=== PATIENT | female | born 1955 | race Caucasian/White ===

== ENCOUNTER 2020-09-28 10:35 | Outpatient (REF) | payer MEDICARE, SELFPAY ==
[2020-09-28 14:17] LABS: Anion Gap 13 (12-20); Blood Urea Nitrogen 12 mg/dL (9-16); Calcium 8.6 mg/dL (8.4-10.2); Carbon Dioxide 28 mmol/L (22-29); Chloride 104 mmol/L (96-108); Estimated Glomerular Filt Rate > 60; Glucose Random 82 mg/dL (60-115); Magnesium 2.2 mg/dL (1.6-2.6); Potassium 4.4 mmol/l (3.3-5.1); Sodium 141 mmol/L (135-145)
[2020-09-28 14:40] LABS: TSH reflex Free T4 1.31 mIU/mL (0.32-4.0)
== END 2020-09-28 10:36 | disposition home or self-care (01) ==
LOC: HO.HMGCLDS 10:35
PROVIDERS: PCP Internal Medicine; Visit Provider Internal Medicine
DX: R25.2 Cramp and spasm (principal); R32 Unspecified urinary incontinence; M19.90 Unspecified osteoarthritis, unspecified site; R10.13 Epigastric pain; E03.8 Other specified hypothyroidism; M47.812 Spondylosis without myelopathy or radiculopathy, cervical region
CPT/HCPCS: 80048; 83735; 84443

== ENCOUNTER → 2021-05-06 12:49 | Outpatient (BNVA) | payer MEDICARE, SELFPAY | PROVIDERS: PCP Internal Medicine; Visit Provider Anesthesiology | DX: M47.812 Spondylosis without myelopathy or radiculopathy, cervical region (principal); M50.30 Other cervical disc degeneration, unspecified cervical region; G89.4 Chronic pain syndrome | CPT/HCPCS: 99202 ==

== ENCOUNTER → 2021-05-15 15:15 | Outpatient (BNVA) | payer MEDICARE, SELFPAY | PROVIDERS: PCP Internal Medicine; Visit Provider Anesthesiology | DX: M17.0 Bilateral primary osteoarthritis of knee (principal); M47.812 Spondylosis without myelopathy or radiculopathy, cervical region; M50.30 Other cervical disc degeneration, unspecified cervical region; G89.4 Chronic pain syndrome | CPT/HCPCS: 20610; 99212; J7325 ==

== ENCOUNTER 2021-06-07 08:57 | Outpatient (REF) | payer MEDICARE, SELFPAY ==
--- NOTE | ~2021-06-07 | MM_ITS ---
EXAMINATION: BONE DENSITOMETRY CLINICAL INDICATION: Unspecified menopausal and perimenopausal disorder. COMPARISON: Previous BD dated 02/20/2017 and baseline BD dated 01/21/2010. TECHNIQUE: Using a [employer] DXA System (software version: 13.1) manufactured by [employer] dual-energy x-ray absorptiometry was performed of the lumbar spine and left hip. The images are of good technical quality. Summary results are attached. FINDINGS: AP SPINE L1-L4: Current: BMD 0.948 g/cm2, Z-score -0.1, T-score -1.9, osteopenia, 1.0% increase from previous, 15.6% decrease from baseline (<5% change is not significant). Prior: BMD 0.939 g/cm2. Baseline: BMD 1.123 g/cm2. LEFT FEMUR, NECK: Current: BMD 0.633 g/cm2, Z-score -1.3, T-score -2.9, osteoporosis. Prior: BMD 0.740 g/cm2. Baseline: BMD 0.849 g/cm2. LEFT FEMUR, TOTAL: Current: BMD 0.722 g/cm2, Z-score -0.9, T-score -2.3, osteopenia, 12.5% decrease from previous, 29.9% decrease from baseline (<5% change is not significant). Prior: BMD 0.825 g/cm2. Baseline: BMD 1.030 g/cm2. IDENTIFIED RISK FACTORS: Height loss, anticonvulsants, menopause. HISTORY OF FRACTURE: None listed. MEDICATIONS: Calcium supplements or multivitamin, vitamin D. MM/XR DEXA axial skeleton IMPRESSION: 1. DIAGNOSIS: Osteoporosis based on the lowest T-score value of -2.9 in the femoral neck applying World Health Organization criteria. 2. 10-YEAR FRACTURE RISK PREDICTION, FRAX: Major osteoporotic fracture (clinical spine, forearm, hip or shoulder) 15.9%. Hip fracture 4.4%. 3. Treatment Recommendations: NOF guidelines recommend consideration for treatment in postmenopausal women and men age 50 and older presenting with the following: -A hip or vertebral (clinical or morphometric) fracture. -T-score less than or equal to -2.5 at the femoral neck or spine after appropriate evaluation to exclude secondary causes. -Low bone mass at the hip or spine and a 10-year fracture probability by FRAX of greater than or equal to 3% for hip fracture or greater than or equal to 20% for major osteoporotic fracture based on the [place] adapted WHO algorithm. 4. Other Recommendations: All treatment decisions require clinical judgment and consideration of individual patient factors, including patient preferences, comorbidities, previous drug use, risk factors not captured in the FRAX model (e.g. frailty, falls, vitamin D deficiency, increased bone turnover, interval significant decline in bone density) and possible under or overestimation of fracture risk by FRAX. Additional medical evaluation for secondary cause of low bone mineral density may be appropriate. FUTURE SCAN RECOMMENDATION: People with diagnosed cases of osteoporosis or at high risk for fracture should have regular bone mineral density tests. For patients eligible for Medicare, routine testing is allowed once every 2 years. The testing frequency can be increased to one year for patients who have rapidly progressing disease, those who are receiving or discontinuing medical therapy to restore bone mass, or have additional risk factors.
--- NOTE | ~2021-06-07 | MM_ITS ---
EXAMINATION: MM SCREENING DIGITAL BREAST TOMOSYNTHESIS, BILATERAL CLINICAL INFORMATION: Screening. Asymptomatic. The lifetime risk of breast cancer based on the Tyrer-Cuzick Model is 10%. COMPARISON: Mammography: 05/31/2020, 03/24/2019, 03/10/2018 TECHNIQUE: Digital breast tomosynthesis is performed in both the craniocaudal and mediolateral oblique views along with computer-aided detection (CAD). Synthesized 2D images are generated from the tomosynthesis. FINDINGS: There are scattered areas of fibroglandular density (ACR BI-RADS breast composition Category b). There are no significant masses, abnormal calcifications, or other abnormalities. There are dermal lesions again seen overlying the inferior posterior medial left breast and inferior mid right breast. There are some vascular calcifications and punctate round calcifications scattered in the breasts. No significant changes. MM/MM tomosynthesis screening BI IMPRESSION: No mammographic evidence of malignancy. ASSESSMENT: BI-RADS 2: Benign RECOMMENDATION: Routine annual mammography screening. This patient's information was entered into a reminder system with a target due date for their next mammogram.
== END 2021-06-07 08:58 | disposition home or self-care (01) ==
LOC: HO.MAMMO 08:57
PROVIDERS: PCP Internal Medicine; Visit Provider Internal Medicine
DX: Z12.31 Encounter for screening mammogram for malignant neoplasm of breast (principal); Z13.820 Encounter for screening for osteoporosis; M81.0 Age-related osteoporosis without current pathological fracture; N95.9 Unspecified menopausal and perimenopausal disorder; Z79.899 Other long term (current) drug therapy
CPT/HCPCS: 77063; 77067; 77080

== ENCOUNTER 2021-06-19 11:10 | Outpatient (REF) | payer MEDICARE, SELFPAY ==
[2021-06-19 13:53] LABS: MANUAL DIFF FLAG NO
[2021-06-19 14:02] LABS: Basophils Absolute Auto 0.1 X10*3/uL (0.0-0.2); Basophils Percent Auto 0.8 % (0-2); Eosinophils Absolute Auto 0.1 X10*3/uL (0.0-0.4); Eosinophils Percent Auto 1.3 % (0-4); Hematocrit 41.4 % (37-47); Hemoglobin 12.9 g/dl (12.0-16.0); Imm Gran Abs Auto 0.01 X10*3/uL (0.00-0.03); Imm Gran Pct Auto 0.2 % (0.0-0.4); Lymphocytes Percent Auto 33.4 % (20-40); Mean Corpuscular HGB Conc 31.2 g/dl (31.0-35.0); Mean Corpuscular Hemoglobin 29.6 pg (27.0-33.0); Mean Platelet Volume 11.1 fL (9.4-12.3); Monocytes Absolute Auto 0.6 X10*3/uL (0.1-1.2); Monocytes Percent Auto 10.1 % (2-11); Neutrophils Absolute Auto 3.3 X10*3/uL (2.0-8.3); Neutrophils Percent Auto 54.2 % (45-73); Platelet Count 274 X10*3/uL (160-400); Red Blood Count 4.36 X10*6/uL (4.20-5.50); Red Cell Distribution Width 13.7 % (11.0-16.0)
[2021-06-19 14:42] LABS: Alanine Aminotransferase 10 U/L (0-31); Albumin Level 4.1 g/dL (3.5-5.0); Alkaline Phosphatase 89 U/L (39-117); Anion Gap 13 (12-20); Aspartate Amino Transferase 18 U/L (5-31); Bilirubin Total 0.6 mg/dL (0.0-1.0); Blood Urea Nitrogen 15 mg/dL (9-16); Calcium 8.9 mg/dL (8.4-10.2); Carbon Dioxide 27 mmol/L (22-29); Chloride 104 mmol/L (96-108); Estimated Glomerular Filt Rate > 60; Glucose Random 78 mg/dL (60-115); Potassium 4.4 mmol/L (3.3-5.1); Sodium 140 mmol/L (135-145); Total Protein 6.6 g/dL (6.5-8.0)
== END 2021-06-19 11:11 | disposition home or self-care (01) ==
LOC: HO.HMGCLDS 11:10
PROVIDERS: PCP Internal Medicine; Visit Provider Internal Medicine
DX: R10.13 Epigastric pain (principal); E03.8 Other specified hypothyroidism; M81.0 Age-related osteoporosis without current pathological fracture; R32 Unspecified urinary incontinence
CPT/HCPCS: 36415; 80053; 84443; 85025

== ENCOUNTER 2021-10-16 10:05 | Outpatient (REF) | payer MEDICARE, SELFPAY ==
--- NOTE | ~2021-10-16 | XR_ITS ---
EXAMINATION: XR FOREARM, LEFT CLINICAL INFORMATION: Injury. Pain left forearm COMPARISON: None TECHNIQUE: AP and lateral views of the left forearm were obtained. FINDINGS: There is no visible acute fracture or bony abnormality. There is moderate soft tissue swelling along the left mid forearm likely soft tissue hematoma contusion. Visualized elbow and wrist joints are unremarkable. XR/XR forearm LT 2V IMPRESSION: No acute fracture seen. Moderate soft tissues swelling left mid forearm likely contusion or hematoma.
== END 2021-10-16 10:06 | disposition home or self-care (01) ==
LOC: HO.HMGCX 10:05
PROVIDERS: PCP Internal Medicine; Visit Provider Internal Medicine
DX: R22.32 Localized swelling, mass and lump, left upper limb (principal); S59.919A Unspecified injury of unspecified forearm, initial encounter
CPT/HCPCS: 73090

== ENCOUNTER → 2021-11-08 10:44 | Outpatient (BNVA) | payer MEDICARE, SELFPAY | PROVIDERS: PCP Internal Medicine; Referring Provider Internal Medicine; Visit Provider Surgery | DX: S50.12XA Contusion of left forearm, initial encounter (principal) | CPT/HCPCS: 99202 ==

== ENCOUNTER 2022-01-29 11:55 | Outpatient (REF) | payer MEDICARE, SELFPAY ==
[2022-01-29 13:48] LABS: MANUAL DIFF FLAG NO
[2022-01-29 13:54] LABS: Basophils Percent Auto 0.5 % (0-2); Eosinophils Absolute Auto 0.1 X10*3/uL (0.0-0.4); Eosinophils Percent Auto 1.2 % (0-4); Hematocrit 39.9 % (37.0-47.0); Hemoglobin 12.2 g/dl (12.0-16.0); Imm Gran Abs Auto 0.01 X10*3/uL (0.00-0.03); Imm Gran Pct Auto 0.2 % (0.0-0.4); Lymphocytes Absolute Auto 1.9 X10*3/uL (1.2-4.9); Mean Corpuscular HGB Conc 30.6 g/dl (31.0-35.0); Mean Corpuscular Hemoglobin 29.2 pg (27.0-33.0); Mean Corpuscular Volume 95.5 fL (80.0-98.0); Monocytes Absolute Auto 0.6 X10*3/uL (0.1-1.2); Monocytes Percent Auto 9.9 % (2-11); Neutrophils Absolute Auto 3.5 x10*3/uL (2.0-8.3); Neutrophils Percent Auto 57.2 % (45-73); Platelet Count 290 X10*3/uL (160-400); Red Blood Count 4.18 X10*6/uL (4.20-5.50); Red Cell Distribution Width 14.2 % (11.0-16.0); White Blood Count 6.1 X10*3/uL (4.8-10.8)
[2022-01-29 14:15] LABS: Alanine Aminotransferase 13 U/L (0-31); Albumin Level 4.1 g/dL (3.5-5.0); Alkaline Phosphatase 69 U/L (39-117); Anion Gap 9 (12-20); Aspartate Amino Transferase 19 U/L (5-31); Bilirubin Total 0.6 mg/dL (0.0-1.0); Blood Urea Nitrogen 12 mg/dL (9-16); Carbon Dioxide 30 mmol/L (22-29); Chloride 106 mmol/L (96-108); Estimated Glomerular Filt Rate > 60; Glucose Random 84 mg/dL (60-115); Potassium 4.1 mmol/L (3.3-5.1); Sodium 141 mmol/L (135-145); Total Protein 6.5 g/dL (6.5-8.0)
[2022-01-29 14:26] LABS: TSH reflex Free T4 0.66 uIU/mL (0.32-4.0)
== END 2022-01-29 11:56 | disposition home or self-care (01) ==
LOC: HO.HMGCLDS 11:55
PROVIDERS: PCP Internal Medicine; Visit Provider Internal Medicine
DX: E03.8 Other specified hypothyroidism (principal); M81.0 Age-related osteoporosis without current pathological fracture; R22.32 Localized swelling, mass and lump, left upper limb
CPT/HCPCS: 36415; 80053; 84443; 85025

== ENCOUNTER 2022-06-10 10:18 | Outpatient (REF) | payer MEDICARE, SELFPAY ==
--- NOTE | ~2022-06-10 | MM_ITS ---
EXAMINATION: MM SCREENING DIGITAL BREAST TOMOSYNTHESIS, BILATERAL CLINICAL INFORMATION: Screening. Asymptomatic. The lifetime risk of breast cancer based on the Tyrer-Cuzick Model is 10%. COMPARISON: Mammography: 06/07/2021, 05/31/2020, 03/24/2019 TECHNIQUE: Digital breast tomosynthesis is performed in both the craniocaudal and mediolateral oblique views along with computer-aided detection (CAD). Synthesized 2D images are generated from the tomosynthesis. Additional left MLO view is provided. FINDINGS: There are scattered areas of fibroglandular density (ACR BI-RADS breast composition Category b). Breast tissue composition borders on heterogeneously dense in the upper outer quadrants. Parenchymal pattern is similar to prior studies. No interval mass or architectural abnormality or abnormal calcifications. There are dermal lesions again seen overlying the bilateral posterior lower breasts. The axilla are unremarkable. MM/MM tomosynthesis screening BI IMPRESSION: No mammographic evidence of malignancy. ASSESSMENT: BI-RADS 2: Benign RECOMMENDATION: Routine annual mammography screening. This patient's information was entered into a reminder system with a target due date for their next mammogram.
== END 2022-06-10 10:19 | disposition home or self-care (01) ==
LOC: HO.MAMMO 10:18
PROVIDERS: Visit Provider Internal Medicine
DX: Z12.31 Encounter for screening mammogram for malignant neoplasm of breast (principal)
CPT/HCPCS: 77063; 77067

== ENCOUNTER 2022-08-11 09:00 | Outpatient (REF) | payer MEDICARE, SELFPAY ==
[2022-08-11 11:11] LABS: MANUAL DIFF FLAG NO
[2022-08-11 11:33] LABS: Basophils Percent Auto 0.5 % (0-2); Eosinophils Absolute Auto 0.1 X10*3/uL (0.0-0.4); Eosinophils Percent Auto 1.5 % (0-4); Hematocrit 38.8 % (37.0-47.0); Hemoglobin 12.1 g/dl (12.0-16.0); Imm Gran Abs Auto 0.02 X10*3/uL (0.00-0.03); Imm Gran Pct Auto 0.3 % (0.0-0.4); Lymphocytes Absolute Auto 2.4 X10*3/uL (1.2-4.9); Mean Corpuscular HGB Conc 31.2 g/dl (31.0-35.0); Mean Corpuscular Hemoglobin 29.5 pg (27.0-33.0); Mean Corpuscular Volume 94.6 fL (80.0-98.0); Mean Platelet Volume 10.9 fL (9.4-12.3); Monocytes Absolute Auto 0.6 X10*3/uL (0.1-1.2); Monocytes Percent Auto 9.3 % (2-11); Neutrophils Percent Auto 49.4 % (45-73); Platelet Count 289 X10*3/uL (160-400); White Blood Count 6.1 X10*3/uL (4.8-10.8)
[2022-08-11 11:59] LABS: Alanine Aminotransferase 16 U/L (0-31); Albumin Level 4.1 g/dL (3.5-5.0); Alkaline Phosphatase 66 U/L (39-117); Anion Gap 13 (12-20); Aspartate Amino Transferase 20 U/L (5-31); Bilirubin Total 0.5 mg/dL (0.0-1.0); Blood Urea Nitrogen 13 mg/dL (9-16); Calcium 8.8 mg/dL (8.4-10.2); Carbon Dioxide 27 mmol/L (22-29); Chloride 105 mmol/L (96-108); Cholesterol 180 mg/dL; Estimated Glomerular Filt Rate > 60; Glucose Fasting 99 mg/dL (60-99); HDL Cholesterol 64 mg/dL; LDL Cholesterol Calculated 102 mg/dl; Potassium 4.3 mmol/L (3.3-5.1); Sodium 141 mmol/L (135-145); Total Protein 6.4 g/dL (6.5-8.0); Triglycerides 70 mg/dL
[2022-08-11 12:04] LABS: TSH reflex Free T4 1.25 uIU/mL (0.32-4.0)
== END 2022-08-11 09:01 | disposition home or self-care (01) ==
LOC: HO.HMGCLDS 09:00
PROVIDERS: PCP Internal Medicine; Visit Provider Internal Medicine
DX: Z00.01 Encounter for general adult medical examination with abnormal findings (principal); E03.8 Other specified hypothyroidism; K58.9 Irritable bowel syndrome, unspecified; M47.812 Spondylosis without myelopathy or radiculopathy, cervical region; M81.0 Age-related osteoporosis without current pathological fracture; R10.13 Epigastric pain; R32 Unspecified urinary incontinence; M19.90 Unspecified osteoarthritis, unspecified site
CPT/HCPCS: 36415; 80053; 80061; 84443; 85025

== ENCOUNTER 2023-03-31 08:23 | Outpatient (REF) | payer MEDICARE, SELFPAY ==
[2023-03-31 12:04] LABS: Alanine Aminotransferase 15 U/L (0-31); Alkaline Phosphatase 70 U/L (39-117); Anion Gap 12 (12-20); Aspartate Amino Transferase 20 U/L (5-31); Bilirubin Total 0.8 mg/dL (0.0-1.0); Blood Urea Nitrogen 13 mg/dL (9-16); Calcium 8.9 mg/dL (8.4-10.2); Carbon Dioxide 26 mmol/L (22-29); Chloride 107 mmol/L (96-108); Cholesterol 176 mg/dL; Estimated Glomerular Filt Rate > 60; Glucose Fasting 109 mg/dL (60-99); Glucose Random 110 mg/dL (60-115); HDL Cholesterol 63 mg/dL; LDL Cholesterol Calculated 99 mg/dl; Potassium 4.3 mmol/L (3.3-5.1); Sodium 141 mmol/L (135-145); Total Protein 6.2 g/dL (6.5-8.0); Triglycerides 71 mg/dL
[2023-03-31 12:24] LABS: TSH reflex Free T4 1.64 uIU/mL (0.32-4.0)
[2023-04-05 15:53] LABS: Vitamin D 25-OH, D2 <4 ng/mL; Vitamin D 25-OH, D3 28 ng/mL; Vitamin D 25-OH, Total 28 ng/mL (30-100)
== END 2023-03-31 08:24 | disposition home or self-care (01) ==
LOC: HO.HMGCLDS 08:23
PROVIDERS: PCP Internal Medicine; Visit Provider Internal Medicine
DX: E03.8 Other specified hypothyroidism (principal); F32.0 Major depressive disorder, single episode, mild; G89.4 Chronic pain syndrome; K58.9 Irritable bowel syndrome, unspecified; M17.0 Bilateral primary osteoarthritis of knee; M19.90 Unspecified osteoarthritis, unspecified site; M81.0 Age-related osteoporosis without current pathological fracture; R32 Unspecified urinary incontinence
CPT/HCPCS: 36415; 80053; 80061; 82306; 84443

== ENCOUNTER 2023-06-23 10:47 | Outpatient (REF) | payer MEDICARE, SELFPAY ==
--- NOTE | ~2023-06-23 | MM_ITS ---
EXAMINATION: MM SCREENING DIGITAL BREAST TOMOSYNTHESIS, BILATERAL CLINICAL INFORMATION: Screening. Asymptomatic. The lifetime risk of breast cancer based on the Tyrer-Cuzick Model is 8.3%. COMPARISON: Mammography: This study is compared with prior exams dating back to 2018. TECHNIQUE: Digital breast tomosynthesis is performed in both the craniocaudal and mediolateral oblique views along with computer-aided detection (CAD). Synthesized 2D images are generated from the tomosynthesis. FINDINGS: The breasts are heterogeneously dense, which may obscure small masses (ACR BI-RADS breast composition Category c). There are no significant masses, abnormal calcifications, or other abnormalities. MM/MM tomosynthesis screening BI IMPRESSION: No mammographic evidence of malignancy. ASSESSMENT: BI-RADS BI-RADS 1 - Negative RECOMMENDATION: Routine annual mammography screening. 1 year F/U This examination should not preclude the clinical evaluation of a suspicious palpable abnormality. This patient's information was entered into a reminder system with a target due date for their next mammogram.
== END 2023-06-23 10:48 | disposition home or self-care (01) ==
LOC: HO.MAMMO 10:47
PROVIDERS: PCP Internal Medicine; Visit Provider Internal Medicine
DX: Z12.31 Encounter for screening mammogram for malignant neoplasm of breast (principal)
CPT/HCPCS: 77063; 77067

== ENCOUNTER → 2023-06-23 10:49 | Outpatient (BNV) | payer MEDICARE, SELFPAY | PROVIDERS: PCP Internal Medicine; Visit Provider Radiology Diagnostic Radiology | DX: Z12.31 Encounter for screening mammogram for malignant neoplasm of breast (principal) | CPT/HCPCS: 77063; 77067 ==

== ENCOUNTER 2023-07-10 09:41 | Outpatient (AMB) | payer MEDICARE, SELFPAY ==
--- NOTE | 2023-07-10 09:42 | MHC.PC.OV ---
Vital Signs 07/10/23 09:46 Height 4 ft 8 in Weight 112 lb BMI 25.1 BP 104/66 Blood Pressure Location Rt brachial Position Sitting Pulse 61 Pulse Source Pulse Oximeter Pulse Oximetry (%) 97 Oxygen Delivery Method Room Air Intake Visit Reasons: 3 month Follow up Allergies Penicillins Allergy (Mild, Verified 07/10/23 09:43) RASH, hives naproxen Adverse Reaction (Unknown, Verified 07/10/23 09:43) GI upset cat dander Allergy (Unknown, Uncoded 04/07/23 10:29) Unknown DUST Allergy (Unknown, Uncoded 04/07/23 10:29) UNKNOWN Tobacco use date assessed: 07/10/23 Fall risk assessment: No Falls in past year Last assessed Fall Risk: 07/10/23 Dental Screening Dental Screen Date: 07/10/23 Did you have a dental visit in the last 12 months?: Yes Did you have a dental problem in the last 6 months where you did not have access to dental care?: No Was dental information given to patient?: No HPI 3 month Follow up HPI Details Patient is 67-year-old female came in today for her regular follow-up visit. Labs were done March of this year reviewed again Impaired fasting sugar : Sugar was slightly high Vitamin-D deficiency continue supplement chronic lower back and neck pain. Continue gabapentin which helps her with the pain as well as anxiety. Medication is also helping her with chronic osteoarthritis especially in her hands and other joints. Her other medications are alendronate 70 mg for osteoporosis Patient has IBS which present with diarrhea and abdominal cramping, dicyclomine did not help her much she have a history of gastric bypass years ago and lost over 300 lb IBS is manageable with diet modification. She is to continue levothyroxine 75 mcg for hypothyroidism along with oxybutynin 5 mg for bladder disorder. She has started having problem with her right thumb which is locking Currently patient is wearing splints during the day. She will let me know if that did not help her. She will need appointment with hand specialist Follow-up 3 months [facility] Medical History Cervical spondylosis Chronic pain syndrome Degeneration, intervertebral disc, cervical Dyspepsia Muscle cramping Osteoarthritis Osteoarthritis of knees, bilateral Other specified hypothyroidism Spondylosis of cervical spine Unstable right knee Urinary incontinence Surgical History Anal fissure Anal fistula History of section History of colonoscopy History of esophagogastroduodenoscopy (EGD) History of gastric bypass History of hernia repair History of tonsillectomy Lipoma of forearm Family History Father CAD (coronary artery disease) Mother HTN (hypertension) Spinal stenosis Dementia Hip fracture Sister No problems noted. Sister No problems noted. Daughter No problems noted. Maternal Grandfather No problems noted. Maternal Grandmother No problems noted. Paternal Grandfather No problems noted. Paternal Grandmother No problems noted. Social History Housing: House Alcohol intake: never Patient Tobacco Use Status: Former Tobacco user Tobacco use type: Cigarette e-Cigarette/Vaping Use: Never Used Second Hand Smoke Exposure: No service: No Current occupational status: retired and disabled Cognitive needs: No Hearing needs: No Vision needs: Yes Questionnaire PHQ-9 Over the last 2 weeks, how often have you been bothered by any of the following problems? 1. Little interest or pleasure in doing things: not at all 2. Feeling down, depressed, or hopeless: not at all 3. Trouble falling or staying asleep, or sleeping too much: not at all 4. Feeling tired or having little energy: several days 5. Poor appetite or overeating: several days 6. Feeling bad about yourself - or that you are a failure or have let yourself or your family down: not at all 7. Trouble concentrating on things, such as reading the newspaper or watching television: not at all 8. Moving or speaking so slowly that other people could have noticed. Or the opposite - being so fidgety or restless that you have been moving around a lot more than usual: not at all 9. Thoughts that you would be better off or of hurting yourself in some way: not at all Total score: 2 Depression Screening Interpretation: Negative 33412 - PHQ-9 Billing: Yes Source: Developed by Drs. Harley Chapa, Anca Camilo, Ezekiel Gan and colleagues, with an educational omari from [employer] Thrive Questionnaire Date Thrive assessed: 07/10/23 I am a: Patient What is your living situation today?: I have a steady place to live Within the past 12 months, did the food you bought not last and you didn't have the money to get more?: Never true Within the past 12 months, did you worry whether your food would run out before you got money to buy more?: Never true Do you have trouble paying for medicines?: No Do you have trouble getting transportation to medical appointments?: No Do you have trouble paying your heating and electricity bill?: No Do you have trouble taking care of your child, family member or friend?: No Do you have trouble with day-to-day activities such as bathing, preparing meals, shopping, managing finances, etc.?: No Are you currently unemployed and looking for a job?: No Are you interested in more education?: No AUDIT C Alcohol Use Questionnaire (AUDIT-C) 1. How often do you have a drink containing alcohol?: Never 3. How often do you have six or more drinks on one occasion?: Never Total Score: 0 Score Reviewed/Action Taken: Yes TYRONE-7 AMB Questionnaire TYRONE-7 Date TYRONE - 7 assessed: 07/10/23 Feeling nervous, anxious, or on edge: 0 = Not at all Not being able to stop or control worryin = Not at all Worrying too much about different things: 1 = Several days Trouble relaxin = Not at all Being so restless that it is hard to sit still: 0 = Not at all Becoming easily annoyed or irritable: 0 = Not at all Feeling afraid as if something awful might happen: 0 = Not at all Total TYRONE-7 score (0-4 normal; 5-9 mild; 10-14 moderate; 15-21 severe): 1 Source: Developed by Drs. Harley Chapa, Anca Camilo, Ezekiel Gan and colleagues, with an educational omari from [employer] TYRONE-7 Assessment Billing TYRONE-7 Assessment Tool: TYRONE-7 Assessment 99614 Review of Systems Const Denies chills and Denies fever(s) ENT Denies epistaxis and Denies nasal discharge Card Denies chest pain Resp Denies chest congestion, Denies cough and Denies hemoptysis GI Denies diarrhea and Denies nausea Skin/Breast Denies rash Neuro Reports no additional complaints Psych Reports no additional complaints Endo Reports no additional complaints Physical exam (Primary Care) Vital Signs: Last Vital Signs Pulse 61 07/10/23 09:46 BP 104/66 07/10/23 09:46 Pulse Ox 97 07/10/23 09:46 Oxygen Delivery Method Room Air 07/10/23 09:46 BMI result Body Mass Index 25.1 Tobacco/Smoking Status: Tobacco use Status Tobacco use date assessed 07/10/23 07/10/23 09:45 Patient Tobacco Use Status Former Tobacco user 07/10/23 09:45 Tobacco use type Cigarette 07/10/23 09:45 e-Cigarette/Vaping Use Never Used 07/10/23 09:45 PHQ-9: PHQ-9 Score PHQ-9: Total score 2 07/10/23 10:03 Depression Screening Interpretation: Negative Thrive Assessment: Date of Thrive Assessment Date Thrive assessed 07/10/23 07/10/23 10:03 Const General: cooperative, comfortable and no acute distress Orientation/consciousness: patient oriented x3 HENMT Head: Yes normocephalic Eyes General: appearance normal, both eyes and all related structures Neck Neck: Yes supple Resp Effort & Inspection: normal respiratory effort, no cough and no stridor Cardio Rhythm: regular rhythm Heart sounds: S1 normal heart sound present and S2 normal heart sound present Skin General skin exam: turgor normal Neuro General: patient oriented x3, tone normal and moves all extremities Extrem Other: Osteoarthritic changes in small joints of hand bilateral Right lower extremity: no edema Left lower extremity: no edema Assessment and Plan Assessment & Plan (1) Other specified hypothyroidism: Code(s): E03.8 - Other specified hypothyroidism (2) Urinary incontinence: Code(s): R32 - Unspecified urinary incontinence (3) Chronic pain syndrome: Code(s): G89.4 - Chronic pain syndrome (4) Depression, major, single episode, mild: Code(s): F32.0 - Major depressive disorder, single episode, mild (5) IBS (irritable bowel syndrome): Code(s): K58.9 - Irritable bowel syndrome without diarrhea (6) Age related osteoporosis: Code(s): M81.0 - Age-related osteoporosis without current pathological fracture (7) History of gastric bypass: Code(s): Z98.84 - Bariatric surgery status (8) Osteoarthritis involving multiple joints on both sides of body: Code(s): M15.9 - Polyosteoarthritis, unspecified Plan Patient is 67-year-old female came in today for her regular follow-up visit. Labs were done March of this year reviewed again Impaired fasting sugar : Sugar was slightly high Vitamin-D deficiency continue supplement chronic lower back and neck pain. Continue gabapentin which helps her with the pain as well as anxiety. Medication is also helping her with chronic osteoarthritis especially in her hands and other joints. Her other medications are alendronate 70 mg for osteoporosis Patient has IBS which present with diarrhea and abdominal cramping, dicyclomine did not help her much she have a history of gastric bypass years ago and lost over 300 lb IBS is manageable with diet modification. She is to continue levothyroxine 75 mcg for hypothyroidism along with oxybutynin 5 mg for bladder disorder. She has started having problem with her right thumb which is locking Currently patient is wearing splints during the day. She will let me know if that did not help her. She will need appointment with hand specialist Follow-up 3 months Coding Level of Care Code Est Pt Level 4 (98905) Diagnoses Other specified hypothyroidism E03.8 Urinary incontinence R32 Chronic pain syndrome G89.4 Depression, major, single episode, mild F32.0 IBS (irritable bowel syndrome) K58.9 Age related osteoporosis M81.0 History of gastric bypass Z98.84 Osteoarthritis involving multiple joints on both sides of body M15.9 Additional Codes TYRONE-7 Assessment Billing - TYRONE-7 Assessment Tool: TYRONE-7 Assessment [id number] ([id number])
[2023-07-10 09:46] VITALS: BP 104/66; PULSE 61; O2SAT 97; BMI 25.1
== END 2023-07-10 10:04 | disposition home or self-care (01) ==
PROVIDERS: PCP Internal Medicine; Visit Provider Internal Medicine
DX: K58.9 Irritable bowel syndrome, unspecified (principal); E03.8 Other specified hypothyroidism; Z98.84 Bariatric surgery status; R32 Unspecified urinary incontinence; G89.4 Chronic pain syndrome; M81.0 Age-related osteoporosis without current pathological fracture; M15.9 Polyosteoarthritis, unspecified
CPT/HCPCS: 99214

== ENCOUNTER 2023-10-09 11:55 | Outpatient (AMB) | payer MEDICARE, SELFPAY ==
--- NOTE | 2023-10-09 12:03 | MHC.PC.OV ---
Vital Signs 10/09/23 12:04 Height 4 ft 8 in Weight 111 lb BMI 24.9 BP 110/70 Blood Pressure Location Rt brachial Position Sitting Pulse 55 Pulse Source Pulse Oximeter Pulse Oximetry (%) 98 Oxygen Delivery Method Room Air Intake Visit Reasons: 3 month follow up Allergies Penicillins Allergy (Mild, Verified 10/09/23 12:07) RASH, hives naproxen Adverse Reaction (Unknown, Verified 10/09/23 12:07) GI upset cat dander Allergy (Unknown, Uncoded 10/09/23 12:07) Unknown DUST Allergy (Unknown, Uncoded 10/09/23 12:07) UNKNOWN Medication List - Last Reviewed 10/09/23 by Aurora Herman CMA alendronate 70 mg PO QWEEK 90 days cholecalciferol (vitamin D3) 25 mcg PO DAILY gabapentin 300 mg PO TID 90 days levothyroxine 75 mcg PO DAILY 90 days oxybutynin chloride 5 mg PO Q6H Tobacco use date assessed: 07/10/23 HPI 3 month follow up HPI Details Patient is 68-year-old female came in today for her regular follow-up visit. 2 weeks ago patient was walking her dog and scrotal came in her way accidentally surprised patient she turned around and fell on her buttock Now she has been lumbar area but it is getting better Patient has chronic lower back pain and neck pain she also have osteoarthritis multiple joints She is taking gabapentin 300 mg 3 times a day which has helped. Refill sent Patient have impaired fasting sugar, once again explained the lab report to the patient we will repeated again today last set of lab was in March Her other medications are alendronate 70 mg for osteoporosis Patient has IBS which present with diarrhea and abdominal cramping, dicyclomine did not help her much she have a history of gastric bypass years ago and lost over 300 lb IBS is manageable with diet modification. She is to continue levothyroxine 75 mcg for hypothyroidism Stress incontinence: Continue oxybutynin 5 mg Follow-up 3 months PFS Medical History Unstable right knee Degeneration, intervertebral disc, cervical Spondylosis of cervical spine Chronic pain syndrome Osteoarthritis of knees, bilateral Muscle cramping Urinary incontinence Osteoarthritis Dyspepsia Other specified hypothyroidism Cervical spondylosis Surgical History History of hernia repair History of esophagogastroduodenoscopy (EGD) History of colonoscopy Lipoma of forearm Anal fistula History of gastric bypass History of tonsillectomy Anal fissure History of section Family History Father CAD (coronary artery disease) Mother HTN (hypertension) Spinal stenosis Dementia Hip fracture Sister No problems noted. Sister No problems noted. Daughter No problems noted. Maternal Grandfather No problems noted. Maternal Grandmother No problems noted. Paternal Grandfather No problems noted. Paternal Grandmother No problems noted. Social History Housing: House Alcohol intake: never Patient Tobacco Use Status: Former Tobacco user Tobacco use type: Cigarette e-Cigarette/Vaping Use: Never Used Second Hand Smoke Exposure: No service: No Current occupational status: retired and disabled Cognitive needs: No Hearing needs: No Vision needs: Yes Questionnaire Thrive Questionnaire Date Thrive assessed: 07/10/23 TYRONE-7 AMB Questionnaire TYRONE-7 Date TYRONE - 7 assessed: 07/10/23 Source: Developed by Drs. Harley Chapa, Anca Camilo, Ezekiel Gan and colleagues, with an educational omari from [employer]. Review of Systems Const Denies chills and Denies fever(s) ENT Denies epistaxis and Denies nasal discharge Card Denies chest pain Resp Denies chest congestion, Denies cough and Denies hemoptysis GI Denies diarrhea and Denies nausea Skin/Breast Denies rash Neuro Reports no additional complaints Psych Reports no additional complaints Endo Reports no additional complaints Physical exam (Primary Care) Vital Signs: Last Vital Signs Pulse 55 10/09/23 12:04 BP 110/70 10/09/23 12:04 Pulse Ox 98 10/09/23 12:04 Oxygen Delivery Method Room Air 10/09/23 12:04 BMI result Body Mass Index 24.9 Tobacco/Smoking Status: Tobacco use Status Tobacco use date assessed 07/10/23 10/09/23 12:03 Patient Tobacco Use Status Former Tobacco user 10/09/23 12:03 Tobacco use type Cigarette 10/09/23 12:03 e-Cigarette/Vaping Use Never Used 10/09/23 12:03 Thrive Assessment: Date of Thrive Assessment Date Thrive assessed 07/10/23 10/09/23 12:03 Const General: cooperative, comfortable and no acute distress Orientation/consciousness: patient oriented x3 HENMT Head: Yes normocephalic Eyes General: appearance normal, both eyes and all related structures Neck Neck: Yes supple Resp Effort & Inspection: normal respiratory effort, no cough and no stridor Cardio Rhythm: regular rhythm Heart sounds: S1 normal heart sound present and S2 normal heart sound present Skin General skin exam: turgor normal Neuro General: patient oriented x3, tone normal and moves all extremities Extrem Right lower extremity: no edema Left lower extremity: no edema Assessment and Plan Assessment & Plan (1) Other specified hypothyroidism: Code(s): E03.8 - Other specified hypothyroidism (2) Urinary incontinence: Code(s): R32 - Unspecified urinary incontinence Qualifiers: Urinary Incontinence type: stress incontinence Qualified Code(s): N39.3 - Stress incontinence (female) (male) (3) Chronic pain syndrome: Code(s): G89.4 - Chronic pain syndrome (4) Depression, major, single episode, mild: Code(s): F32.0 - Major depressive disorder, single episode, mild (5) IBS (irritable bowel syndrome): Code(s): K58.9 - Irritable bowel syndrome without diarrhea Qualifiers: Irritable bowel syndrome type: with both diarrhea and constipation Qualified Code(s): K58.2 - Mixed irritable bowel syndrome (6) Age related osteoporosis: Code(s): M81.0 - Age-related osteoporosis without current pathological fracture Qualifiers: Presence of current pathological fracture: without current pathological fracture Qualified Code(s): M81.0 - Age-related osteoporosis without current pathological fracture (7) History of gastric bypass: Code(s): Z98.84 - Bariatric surgery status (8) Osteoarthritis involving multiple joints on both sides of body: Code(s): M15.9 - Polyosteoarthritis, unspecified (9) Lumbar pain: Code(s): M54.50 - Low back pain, unspecified (10) Fall: Code(s): W19.XXXA - Unspecified fall, initial encounter Qualifiers: Encounter type: initial encounter Qualified Code(s): W19.XXXA - Unspecified fall, initial encounter Plan Patient is 68-year-old female came in today for her regular follow-up visit. 2 weeks ago patient was walking her dog and scrotal came in her way accidentally surprised patient she turned around and fell on her buttock Now she has been lumbar area but it is getting better Patient has chronic lower back pain and neck pain she also have osteoarthritis multiple joints She is taking gabapentin 300 mg 3 times a day which has helped. Refill sent Patient have impaired fasting sugar, once again explained the lab report to the patient we will repeated again today last set of lab was in March Her other medications are alendronate 70 mg for osteoporosis Patient has IBS which present with diarrhea and abdominal cramping, dicyclomine did not help her much she have a history of gastric bypass years ago and lost over 300 lb IBS is manageable with diet modification. She is to continue levothyroxine 75 mcg for hypothyroidism Stress incontinence: Continue oxybutynin 5 mg Follow-up 3 months Orders: Orders Comprehensive Met. Panel Today E03.8 - Other specified hypothyroidism, F32.0 - Major depressive disorder, single episode, mild, G89.4 - Chronic pain syndrome, K58.9 - Irritable bowel syndrome without diarrhea, M15.9 - Polyosteoarthritis, unspecified, M17.0 - Bilateral primary osteoarthritis of knee, M47.812 - Spondylosis without myelopathy or radiculopathy, cervical region, M50.30 - Other cervical disc degeneration, unspecified cervical region, M81.0 - Age-related osteoporosis without current pathological fracture, N39.3 - Stress incontinence (female) (male), Z98.84 - Bariatric surgery status LDL Cholesterol Direct Today E03.8 - Other specified hypothyroidism, F32.0 - Major depressive disorder, single episode, mild, G89.4 - Chronic pain syndrome, K58.9 - Irritable bowel syndrome without diarrhea, M15.9 - Polyosteoarthritis, unspecified, M17.0 - Bilateral primary osteoarthritis of knee, M47.812 - Spondylosis without myelopathy or radiculopathy, cervical region, M50.30 - Other cervical disc degeneration, unspecified cervical region, M81.0 - Age-related osteoporosis without current pathological fracture, N39.3 - Stress incontinence (female) (male), Z98.84 - Bariatric surgery status Complete Blood Count Auto Diff Today E03.8 - Other specified hypothyroidism, F32.0 - Major depressive disorder, single episode, mild, G89.4 - Chronic pain syndrome, K58.9 - Irritable bowel syndrome without diarrhea, M15.9 - Polyosteoarthritis, unspecified, M17.0 - Bilateral primary osteoarthritis of knee, M47.812 - Spondylosis without myelopathy or radiculopathy, cervical region, M50.30 - Other cervical disc degeneration, unspecified cervical region, M81.0 - Age-related osteoporosis without current pathological fracture, N39.3 - Stress incontinence (female) (male), Z98.84 - Bariatric surgery status TSH reflex Free T4 Today E03.8 - Other specified hypothyroidism, F32.0 - Major depressive disorder, single episode, mild, G89.4 - Chronic pain syndrome, K58.9 - Irritable bowel syndrome without diarrhea, M15.9 - Polyosteoarthritis, unspecified, M17.0 - Bilateral primary osteoarthritis of knee, M47.812 - Spondylosis without myelopathy or radiculopathy, cervical region, M50.30 - Other cervical disc degeneration, unspecified cervical region, M81.0 - Age-related osteoporosis without current pathological fracture, N39.3 - Stress incontinence (female) (male), Z98.84 - Bariatric surgery status Medications: Refilled gabapentin 300 mg PO TID 270 caps 0RF 90 days Coding Level of Care Code Est Pt Level 4 (51318) Diagnoses Other specified hypothyroidism E03.8 Stress incontinence of urine N39.3 Urinary Incontinence type: stress incontinence Chronic pain syndrome G89.4 Depression, major, single episode, mild F32.0 Irritable bowel syndrome with both constipation and diarrhea K58.2 Irritable bowel syndrome type: with both diarrhea and constipation Age-related osteoporosis without current pathological fracture M81.0 Presence of current pathological fracture: without current pathological fracture History of gastric bypass Z98.84 Osteoarthritis involving multiple joints on both sides of body M15.9 Lumbar pain M54.50 Fall, initial encounter W19.XXXA Encounter type: initial encounter
[2023-10-09 12:04] VITALS: BP 110/70; PULSE 55; O2SAT 98; BMI 24.9
== END 2023-10-09 13:16 | disposition home or self-care (01) ==
PROVIDERS: PCP Internal Medicine; Visit Provider Internal Medicine
DX: E03.8 Other specified hypothyroidism (principal); N39.3 Stress incontinence (female) (male); G89.4 Chronic pain syndrome; F32.0 Major depressive disorder, single episode, mild; K58.2 Mixed irritable bowel syndrome; M81.0 Age-related osteoporosis without current pathological fracture; Z98.84 Bariatric surgery status; M15.9 Polyosteoarthritis, unspecified; M54.50 Low back pain, unspecified; W19.XXXA Unspecified fall, initial encounter
CPT/HCPCS: 99214

== ENCOUNTER 2023-10-09 12:34 | Outpatient (REF) | payer MEDICARE, SELFPAY ==
[2023-10-09 16:00] LABS: MANUAL DIFF FLAG NO
[2023-10-09 16:04] LABS: Basophils Percent Auto 0.7 % (0-2); Eosinophils Percent Auto 0.5 % (0-4); Hematocrit 40.8 % (37.0-47.0); Hemoglobin 12.7 g/dl (12.0-16.0); Imm Gran Abs Auto 0.02 X10*3/uL (0.00-0.03); Imm Gran Pct Auto 0.4 % (0.0-0.4); Lymphocytes Absolute Auto 1.7 X10*3/uL (1.2-4.9); Lymphocytes Percent Auto 30.9 % (20-40); Mean Corpuscular HGB Conc 31.1 g/dl (31.0-35.0); Mean Corpuscular Hemoglobin 29.2 pg (27.0-33.0); Mean Corpuscular Volume 93.8 fL (80.0-98.0); Mean Platelet Volume 10.6 fL (9.4-12.3); Monocytes Absolute Auto 0.5 X10*3/uL (0.1-1.2); Monocytes Percent Auto 9.6 % (2-11); Neutrophils Absolute Auto 3.3 x10*3/uL (2.0-8.3); Neutrophils Percent Auto 57.9 % (45-73); Platelet Count 290 X10*3/uL (160-400); Red Blood Count 4.35 X10*6/uL (4.20-5.50); Red Cell Distribution Width 14.6 % (11.0-16.0); White Blood Count 5.6 X10*3/uL (4.8-10.8)
[2023-10-09 16:22] LABS: Alanine Aminotransferase 13 U/L (0-31); Albumin Level 4.3 g/dL (3.5-5.0); Alkaline Phosphatase 84 U/L (39-117); Anion Gap 10 (12-20); Aspartate Amino Transferase 21 U/L (5-31); Bilirubin Total 0.4 mg/dL (0.0-1.0); Blood Urea Nitrogen 14 mg/dL (9-16); Calcium 9.1 mg/dL (8.4-10.2); Carbon Dioxide 28 mmol/L (22-29); Chloride 106 mmol/L (96-108); Estimated Glomerular Filt Rate > 60; Glucose Random 94 mg/dL (60-115); Potassium 4.1 mmol/L (3.3-5.1); Sodium 140 mmol/L (135-145)
[2023-10-09 16:38] LABS: TSH reflex Free T4 1.07 uIU/mL (0.32-4.0)
[2023-10-10 15:47] LABS: LDL Cholesterol Direct 98 mg/dL (<100)
== END 2023-10-09 12:35 | disposition home or self-care (01) ==
LOC: HO.HMGCLDS 12:34
PROVIDERS: PCP Internal Medicine; Visit Provider Internal Medicine
DX: E03.8 Other specified hypothyroidism (principal); M17.0 Bilateral primary osteoarthritis of knee; M47.812 Spondylosis without myelopathy or radiculopathy, cervical region; G89.4 Chronic pain syndrome; M50.30 Other cervical disc degeneration, unspecified cervical region; M81.0 Age-related osteoporosis without current pathological fracture; K58.9 Irritable bowel syndrome, unspecified; F32.0 Major depressive disorder, single episode, mild; N39.3 Stress incontinence (female) (male); Z98.84 Bariatric surgery status
CPT/HCPCS: 36415; 80053; 83721; 84443; 85025

== ENCOUNTER 2024-01-13 10:05 | Outpatient (AMB) | payer MEDICARE, SELFPAY ==
[2024-01-13 10:13] VITALS: BP 140/78; PULSE 56; O2SAT 99; BMI 26.5
--- NOTE | 2024-01-13 10:13 | MHC.PC.OV ---
Vital Signs 01/13/24 10:13 Height 4 ft 8 in Weight 118 lb 6 oz BMI 26.5 BP 140/78 H Blood Pressure Location Lt brachial Position Sitting Pulse 56 Pulse Source Pulse Oximeter Pulse Oximetry (%) 99 Oxygen Delivery Method Room Air Intake Visit Reasons: 6 month follow up Allergies Penicillins Allergy (Mild, Verified 01/13/24 10:15) RASH, hives naproxen Adverse Reaction (Unknown, Verified 01/13/24 10:15) GI upset cat dander Allergy (Unknown, Uncoded 10/09/23 12:07) Unknown DUST Allergy (Unknown, Uncoded 10/09/23 12:07) UNKNOWN Medication List - Last Reconciled 01/13/24 by Barron Ravi MD alendronate 70 mg PO QWEEK 90 days cholecalciferol (vitamin D3) 25 mcg PO DAILY gabapentin 300 mg PO TID 90 days levothyroxine 75 mcg PO DAILY 90 days oxybutynin chloride 5 mg PO Q6H Tobacco use date assessed: 01/13/24 Fall risk assessment: No Falls in past year Last assessed Fall Risk: 01/13/24 Dental Screening Dental Screen Date: 01/13/24 Did you have a dental visit in the last 12 months?: Yes Did you have a dental problem in the last 6 months where you did not have access to dental care?: No Was dental information given to patient?: Patient has dentist HPI 6 month follow up HPI Details Patient is 68-year-old female came in today for her regular follow-up visit. Patient tells me that a week ago she does stomach bug and was sick for 4 days but she is feeling better Patient has chronic lower back pain and neck pain she also have osteoarthritis multiple joints She is taking gabapentin 300 mg 3 times a day which has helped. Refill sent Patient have impaired fasting sugar, continue diet modification Her other medications are alendronate 70 mg for osteoporosis Patient has IBS which present with diarrhea and abdominal cramping, dicyclomine did not help her much she have a history of gastric bypass years ago and lost over 300 lb IBS is manageable with diet modification. She is to continue levothyroxine 75 mcg for hypothyroidism Stress incontinence: Continue oxybutynin 5 mg Follow-up 3 months [facility] Medical History Unstable right knee Degeneration, intervertebral disc, cervical Spondylosis of cervical spine Chronic pain syndrome Osteoarthritis of knees, bilateral Muscle cramping Urinary incontinence Osteoarthritis Dyspepsia Other specified hypothyroidism Cervical spondylosis Surgical History History of hernia repair History of esophagogastroduodenoscopy (EGD) History of colonoscopy Lipoma of forearm Anal fistula History of gastric bypass History of tonsillectomy Anal fissure History of section Family History Father CAD (coronary artery disease) Mother HTN (hypertension) Spinal stenosis Dementia Hip fracture Sister No problems noted. Sister No problems noted. Daughter No problems noted. Maternal Grandfather No problems noted. Maternal Grandmother No problems noted. Paternal Grandfather No problems noted. Paternal Grandmother No problems noted. Social History Housing: House Alcohol intake: never Patient Tobacco Use Status: Former Tobacco user Tobacco use type: Cigarette e-Cigarette/Vaping Use: Never Used Second Hand Smoke Exposure: No service: No Current occupational status: retired and disabled Cognitive needs: No Hearing needs: No Vision needs: Yes Questionnaire Thrive Questionnaire Date Thrive assessed: 07/10/23 AUDIT C Alcohol Use Questionnaire (AUDIT-C) 1. How often do you have a drink containing alcohol?: Never 3. How often do you have six or more drinks on one occasion?: Never Total Score: 0 Score Reviewed/Action Taken: Yes TYRONE-7 AMB Questionnaire TYRONE-7 Date TYRONE - 7 assessed: 07/10/23 Source: Developed by Drs. Harley Chapa, Anca Camilo, Ezekiel Gan and colleagues, with an educational omari from [employer]. Review of Systems Const Denies chills and Denies fever(s) ENT Denies epistaxis and Denies nasal discharge Card Denies chest pain Resp Denies chest congestion, Denies cough and Denies hemoptysis GI Denies diarrhea and Denies nausea Skin/Breast Denies rash Neuro Reports no additional complaints Psych Reports no additional complaints Endo Reports no additional complaints Physical exam (Primary Care) Vital Signs: Last Vital Signs Pulse 56 01/13/24 10:13 BP 140/78 H 01/13/24 10:13 Pulse Ox 99 01/13/24 10:13 Oxygen Delivery Method Room Air 01/13/24 10:13 BMI result Body Mass Index 26.5 Tobacco/Smoking Status: Tobacco use Status Tobacco use date assessed 01/13/24 01/13/24 10:17 Patient Tobacco Use Status Former Tobacco user 01/13/24 10:17 Tobacco use type Cigarette 01/13/24 10:17 e-Cigarette/Vaping Use Never Used 01/13/24 10:17 Thrive Assessment: Date of Thrive Assessment Date Thrive assessed 07/10/23 01/13/24 10:17 Const General: cooperative, comfortable and no acute distress Orientation/consciousness: patient oriented x3 HENMT Head: Yes normocephalic Eyes General: appearance normal, both eyes and all related structures Neck Neck: Yes supple Resp Effort & Inspection: normal respiratory effort, no cough and no stridor Cardio Rhythm: regular rhythm Heart sounds: S1 normal heart sound present and S2 normal heart sound present Skin General skin exam: turgor normal Neuro General: patient oriented x3, tone normal and moves all extremities Extrem Right lower extremity: no edema Left lower extremity: no edema Assessment and Plan Assessment & Plan (1) Other specified hypothyroidism: Code(s): E03.8 - Other specified hypothyroidism (2) Chronic pain syndrome: Code(s): G89.4 - Chronic pain syndrome (3) Depression, major, single episode, mild: Code(s): F32.0 - Major depressive disorder, single episode, mild (4) IBS (irritable bowel syndrome): Code(s): K58.9 - Irritable bowel syndrome without diarrhea Qualifiers: Irritable bowel syndrome type: with both diarrhea and constipation Qualified Code(s): K58.2 - Mixed irritable bowel syndrome (5) Age related osteoporosis: Code(s): M81.0 - Age-related osteoporosis without current pathological fracture Qualifiers: Presence of current pathological fracture: without current pathological fracture Qualified Code(s): M81.0 - Age-related osteoporosis without current pathological fracture (6) History of gastric bypass: Code(s): Z98.84 - Bariatric surgery status (7) Lumbar pain: Code(s): M54.50 - Low back pain, unspecified (8) Stress incontinence (female) (male): Code(s): N39.3 - Stress incontinence (female) (male) Plan Patient is 68-year-old female came in today for her regular follow-up visit. Patient tells me that a week ago she does stomach bug and was sick for 4 days but she is feeling better Patient has chronic lower back pain and neck pain she also have osteoarthritis multiple joints She is taking gabapentin 300 mg 3 times a day which has helped. Refill sent Patient have impaired fasting sugar, continue diet modification Her other medications are alendronate 70 mg for osteoporosis Depression stable Patient has IBS which present with diarrhea and abdominal cramping, dicyclomine did not help her much she have a history of gastric bypass years ago and lost over 300 lb IBS is manageable with diet modification. She is to continue levothyroxine 75 mcg for hypothyroidism Stress incontinence: Continue oxybutynin 5 mg Follow-up 3 months Orders: Orders Complete Blood Count Auto Diff Today E03.8 - Other specified hypothyroidism, F32.0 - Major depressive disorder, single episode, mild, G89.4 - Chronic pain syndrome, K58.9 - Irritable bowel syndrome without diarrhea, M81.0 - Age-related osteoporosis without current pathological fracture, N39.3 - Stress incontinence (female) (male) TSH reflex Free T4 Today E03.8 - Other specified hypothyroidism, F32.0 - Major depressive disorder, single episode, mild, G89.4 - Chronic pain syndrome, K58.9 - Irritable bowel syndrome without diarrhea, M81.0 - Age-related osteoporosis without current pathological fracture, N39.3 - Stress incontinence (female) (male) Comprehensive [place]. Panel Fast Today E03.8 - Other specified hypothyroidism, F32.0 - Major depressive disorder, single episode, mild, G89.4 - Chronic pain syndrome, K58.9 - Irritable bowel syndrome without diarrhea, M81.0 - Age-related osteoporosis without current pathological fracture, N39.3 - Stress incontinence (female) (male) Lipid Panel Today E03.8 - Other specified hypothyroidism, F32.0 - Major depressive disorder, single episode, mild, G89.4 - Chronic pain syndrome, K58.9 - Irritable bowel syndrome without diarrhea, M81.0 - Age-related osteoporosis without current pathological fracture, N39.3 - Stress incontinence (female) (male) Medications: Refilled alendronate 70 mg PO QWEEK 13 tabs 3RF 90 days gabapentin 300 mg PO TID 270 caps 0RF 90 days levothyroxine 75 mcg PO DAILY 90 tabs 3RF 90 days Coding Level of Care Code Est Pt Level 4 (32156) Diagnoses Other specified hypothyroidism E03.8 Chronic pain syndrome G89.4 Depression, major, single episode, mild F32.0 Irritable bowel syndrome with both constipation and diarrhea K58.2 Irritable bowel syndrome type: with both diarrhea and constipation Age-related osteoporosis without current pathological fracture M81.0 Presence of current pathological fracture: without current pathological fracture History of gastric bypass Z98.84 Lumbar pain M54.50 Stress incontinence (female) (male) N39.3
== END 2024-01-13 12:17 | disposition home or self-care (01) ==
PROVIDERS: PCP Internal Medicine; Visit Provider Internal Medicine
DX: E03.8 Other specified hypothyroidism (principal); G89.4 Chronic pain syndrome; F32.0 Major depressive disorder, single episode, mild; K58.2 Mixed irritable bowel syndrome; M81.0 Age-related osteoporosis without current pathological fracture; Z98.84 Bariatric surgery status; M54.50 Low back pain, unspecified; N39.3 Stress incontinence (female) (male)
CPT/HCPCS: 99214

== ENCOUNTER 2024-03-29 08:42 | Outpatient (REF) | payer MEDICARE, SELFPAY ==
[2024-03-29 10:24] LABS: MANUAL DIFF FLAG NO
[2024-03-29 10:39] LABS: Basophils Percent Auto 0.6 % (0-2); Eosinophils Absolute Auto 0.1 X10*3/uL (0.0-0.4); Eosinophils Percent Auto 1.1 % (0-4); Hematocrit 41.7 % (37.0-47.0); Hemoglobin 13.3 g/dl (12.0-16.0); Imm Gran Abs Auto 0.02 X10*3/uL (0.00-0.03); Imm Gran Pct Auto 0.3 % (0.0-0.4); Lymphocytes Absolute Auto 1.5 X10*3/uL (1.2-4.9); Mean Corpuscular HGB Conc 31.9 g/dl (31.0-35.0); Mean Corpuscular Hemoglobin 31.1 pg (27.0-33.0); Mean Corpuscular Volume 97.7 fL (80.0-98.0); Mean Platelet Volume 11.1 fL (9.4-12.3); Monocytes Absolute Auto 0.6 X10*3/uL (0.1-1.2); Monocytes Percent Auto 9.1 % (2-11); Neutrophils Absolute Auto 4.1 x10*3/uL (2.0-8.3); Neutrophils Percent Auto 64.9 % (45-73); Platelet Count 246 X10*3/uL (160-400); Red Blood Count 4.27 X10*6/uL (4.20-5.50); Red Cell Distribution Width 13.6 % (11.0-16.0); White Blood Count 6.3 X10*3/uL (4.8-10.8)
[2024-03-29 11:01] LABS: Alanine Aminotransferase 13 U/L (0-31); Albumin Level 3.9 g/dL (3.5-5.0); Alkaline Phosphatase 70 U/L (39-117); Anion Gap 15 (12-20); Aspartate Amino Transferase 18 U/L (5-31); Bilirubin Total 0.6 mg/dL (0.0-1.0); Blood Urea Nitrogen 14 mg/dL (9-16); Carbon Dioxide 25 mmol/L (22-29); Chloride 105 mmol/L (96-108); Cholesterol 152 mg/dL (<200); Estimated Glomerular Filt Rate > 60; Glucose Fasting 107 mg/dL (60-99); HDL Cholesterol 62 mg/dL (>40); LDL Cholesterol Calculated 77 mg/dL (<100); Potassium 3.6 mmol/L (3.3-5.1); Sodium 141 mmol/L (135-145); Total Protein 6.4 g/dL (6.5-8.0); Triglycerides 67 mg/dL (<150)
[2024-03-29 11:20] LABS: TSH reflex Free T4 1.07 uIU/mL (0.32-4.0)
== END 2024-03-29 08:43 | disposition home or self-care (01) ==
LOC: HO.HMGCLDS 08:42
PROVIDERS: PCP Internal Medicine; Visit Provider Internal Medicine
DX: E03.8 Other specified hypothyroidism (principal); G89.4 Chronic pain syndrome; M81.0 Age-related osteoporosis without current pathological fracture; K58.9 Irritable bowel syndrome, unspecified; F32.0 Major depressive disorder, single episode, mild; N39.3 Stress incontinence (female) (male)
CPT/HCPCS: 36415; 80053; 80061; 84443; 85025

== ENCOUNTER 2024-04-12 11:12 | Outpatient (AMB) | payer MEDICARE, SELFPAY ==
--- NOTE | 2024-04-12 11:17 | MHC.PC.OV ---
Vital Signs 04/12/24 11:18 Height 4 ft 8 in Weight 112 lb 2 oz BMI 25.1 BP 118/72 Blood Pressure Location Lt brachial Position Sitting Pulse 58 Pulse Source Pulse Oximeter Pulse Oximetry (%) 98 Oxygen Delivery Method Room Air Intake Visit Reasons: Annual PE Allergies Penicillins Allergy (Mild, Verified 04/12/24 11:19) RASH, hives naproxen Adverse Reaction (Unknown, Verified 04/12/24 11:19) GI upset cat dander Allergy (Unknown, Uncoded 10/09/23 12:07) Unknown DUST Allergy (Unknown, Uncoded 10/09/23 12:07) UNKNOWN Medication List - Last Reconciled 04/12/24 by Barron Ravi MD alendronate 70 mg PO QWEEK 90 days cholecalciferol (vitamin D3) 25 mcg PO DAILY gabapentin 300 mg PO TID 90 days levothyroxine 75 mcg PO DAILY 90 days ondansetron HCl 4 mg PO Q8H PRN 7 days oxybutynin chloride 5 mg PO Q6H Tobacco use date assessed: 04/12/24 Fall risk assessment: No Falls in past year Last assessed Fall Risk: 04/12/24 Dental Screening Dental Screen Date: 04/12/24 Did you have a dental visit in the last 12 months?: Yes Did you have a dental problem in the last 6 months where you did not have access to dental care?: No Was dental information given to patient?: Patient has dentist HPI Annual PE HPI Details Patient is 68-year-old female came in today for physical examination Mammogram due May of this year Bone density 2020, which showed osteoporosis with a score of-2.9 patient is on Fosamax and is due for repeat bone density Colonoscopy : Patient says that it was performed approximately 4 years ago at [facility], we will try to get the report, she does not remember the provider's name No longer having Pap smears or seeing OBGYN, declined breast exam Labs were done this month reviewed with the patient, she has impaired fasting sugar, I would recommend diet-controlled Patient is taking gabapentin 300 mg t.i.d. for arthritic pain and it has been helping her. Patient is complying with the treatment. Hypothyroidism: Continue levothyroxine 75 mcg TSH within normal limit Patient have IBS, stable with diet controlled Follow-up 3 months physical exam 1 year [facility] Medical History Unstable right knee Degeneration, intervertebral disc, cervical Spondylosis of cervical spine Chronic pain syndrome Osteoarthritis of knees, bilateral Muscle cramping Urinary incontinence Osteoarthritis Dyspepsia Other specified hypothyroidism Cervical spondylosis Surgical History History of hernia repair History of esophagogastroduodenoscopy (EGD) History of colonoscopy Lipoma of forearm Anal fistula History of gastric bypass History of tonsillectomy Anal fissure History of section Family History Father CAD (coronary artery disease) Mother HTN (hypertension) Spinal stenosis Dementia Hip fracture Sister No problems noted. Sister No problems noted. Daughter No problems noted. Maternal Grandfather No problems noted. Maternal Grandmother No problems noted. Paternal Grandfather No problems noted. Paternal Grandmother No problems noted. Social History Housing: House Alcohol intake: never Patient Tobacco Use Status: Former Tobacco user Tobacco use type: Cigarette e-Cigarette/Vaping Use: Never Used Second Hand Smoke Exposure: No service: No Current occupational status: retired and disabled Cognitive needs: No Hearing needs: No Vision needs: Yes Questionnaire PHQ-9 Over the last 2 weeks, how often have you been bothered by any of the following problems? 1. Little interest or pleasure in doing things: not at all 2. Feeling down, depressed, or hopeless: not at all 3. Trouble falling or staying asleep, or sleeping too much: not at all 4. Feeling tired or having little energy: several days 5. Poor appetite or overeating: several days 6. Feeling bad about yourself - or that you are a failure or have let yourself or your family down: not at all 7. Trouble concentrating on things, such as reading the newspaper or watching television: not at all 8. Moving or speaking so slowly that other people could have noticed. Or the opposite - being so fidgety or restless that you have been moving around a lot more than usual: not at all 9. Thoughts that you would be better off or of hurting yourself in some way: not at all Total score: 2 Depression Screening Interpretation: Negative Depression Screening Done: Yes 91977 - PHQ-9 Billing: Yes Source: Developed by Drs. Harley Chapa, Anca Camilo, Ezekiel Gan and colleagues, with an educational omari from [employer]. Thrive Questionnaire Date Thrive assessed: 04/12/24 I am a: Patient What is your living situation today?: I have a steady place to live Within the past 12 months, did the food you bought not last and you didn't have the money to get more?: Never true Within the past 12 months, did you worry whether your food would run out before you got money to buy more?: Never true Do you have trouble paying for medicines?: No Do you have trouble getting transportation to medical appointments?: No Do you have trouble paying your heating and electricity bill?: No Do you have trouble taking care of your child, family member or friend?: No Do you have trouble with day-to-day activities such as bathing, preparing meals, shopping, managing finances, etc.?: No Are you currently unemployed and looking for a job?: No Are you interested in more education?: No Please select the resources that you would like help with: None Currently or been in a relationship where the following occur: no concerns reported THRIVE Score: 0 AUDIT C Alcohol Use Questionnaire (AUDIT-C) 1. How often do you have a drink containing alcohol?: Never 3. How often do you have six or more drinks on one occasion?: Never Total Score: 0 Score Reviewed/Action Taken: Yes TYRONE-7 AMB Questionnaire TYRONE-7 Date TYRONE - 7 assessed: 04/12/24 Feeling nervous, anxious, or on edge: 0 = Not at all Not being able to stop or control worryin = Several days Worrying too much about different things: 0 = Not at all Trouble relaxin = Not at all Being so restless that it is hard to sit still: 0 = Not at all Becoming easily annoyed or irritable: 0 = Not at all Feeling afraid as if something awful might happen: 0 = Not at all Total TYRONE-7 score (0-4 normal; 5-9 mild; 10-14 moderate; 15-21 severe): 1 Source: Developed by Drs. Harley Chapa, Anca Camilo, Ezekiel Gan and colleagues, with an educational omari from [employer]. TYRONE-7 Assessment Billing TYRONE-7 Assessment Tool: TYRONE-7 Assessment 87364 Review of Systems Const Denies chills, Denies fever(s) and Denies headache(s) Eyes Denies blurry vision ENT Denies headache(s), Denies nasal discharge, Denies nasal obstruction, Denies odynophagia and Denies sinus pain Card Denies chest pain at rest and Denies chest pain with activity Resp Denies cough and Denies hemoptysis GI Denies diarrhea, Denies odynophagia, Denies vomiting and Denies hematemesis Reports as per HPI Musc Denies abnormal gait Skin/Breast Reports as per HPI Neuro Denies Neuro-related abnormal movements, Denies Abnormal speech present, Denies abnormal gait, Denies headache(s) and Denies Sensory deficit (Neuro) Psych Denies mood swings and Denies paranoia Endo Reports as per HPI Vic/Lymph Reports as per HPI Aller/Immun Reports as per HPI Physical exam (Primary Care) Vital Signs: Last Vital Signs Pulse 58 04/12/24 11:18 BP 118/72 04/12/24 11:18 Pulse Ox 98 04/12/24 11:18 Oxygen Delivery Method Room Air 04/12/24 11:18 BMI result Body Mass Index 25.1 Tobacco/Smoking Status: Tobacco use Status Tobacco use date assessed 04/12/24 04/12/24 11:20 Patient Tobacco Use Status Former Tobacco user 04/12/24 11:20 Tobacco use type Cigarette 04/12/24 11:20 e-Cigarette/Vaping Use Never Used 04/12/24 11:20 PHQ-9: PHQ-9 Score PHQ-9: Total score 2 04/12/24 11:49 Depression Screening Interpretation: Negative Thrive Assessment: Date of Thrive Assessment Date Thrive assessed 04/12/24 04/12/24 11:49 Currently or been in a relationship where the following occur: no concerns reported Const General: cooperative, comfortable and no acute distress Orientation/consciousness: patient oriented x3 HENMT Head: Yes normocephalic and Yes atraumatic Eyes General: appearance normal, both eyes and all related structures Pupils: Equal, round and reactive pupils present EOM: EOMs intact bilaterally Neck Neck: Yes supple and No lymphadenopathy Thyroid: Thyroid normal Lymphatic: no lymphadenopathy noted Resp Effort & Inspection: normal respiratory effort and able to speak in complete sentences Auscultation: clear to auscultation bilaterally Cardio Heart sounds: S1 normal heart sound present and S2 normal heart sound present GI Palpation (GI): Soft to palpation and nontender Auscultation: normal bowel sounds General: Yes no CVA tenderness Back/Spine/Pelvis Back: no CVA tenderness Skin General skin exam: elasticity normal and turgor normal Neuro General: patient oriented x3 and gait normal Cranial nerves: Yes Equal, round and reactive pupils present Speech: No Abnormal speech present Sensory Exam: No Sensory deficit (Neuro) Coordination: tandem gait normal and Romberg test negative Extrem General: Yes normal exam except as noted and No edema Assessment and Plan Assessment & Plan (1) Encounter for general adult medical examination with abnormal findings: Code(s): Z00.01 - Encounter for general adult medical examination with abnormal findings (2) Other specified hypothyroidism: Code(s): E03.8 - Other specified hypothyroidism (3) Osteoarthritis of knees, bilateral: Code(s): M17.0 - Bilateral primary osteoarthritis of knee Qualifiers: Osteoarthritis type: primary Qualified Code(s): M17.0 - Bilateral primary osteoarthritis of knee (4) Chronic pain syndrome: Code(s): G89.4 - Chronic pain syndrome (5) Depression, major, single episode, mild: Code(s): F32.0 - Major depressive disorder, single episode, mild (6) IBS (irritable bowel syndrome): Code(s): K58.9 - Irritable bowel syndrome without diarrhea Qualifiers: Irritable bowel syndrome type: with both diarrhea and constipation Qualified Code(s): K58.2 - Mixed irritable bowel syndrome (7) Age related osteoporosis: Code(s): M81.0 - Age-related osteoporosis without current pathological fracture Qualifiers: Presence of current pathological fracture: without current pathological fracture Qualified Code(s): M81.0 - Age-related osteoporosis without current pathological fracture (8) History of gastric bypass: Code(s): Z98.84 - Bariatric surgery status Plan Patient is 68-year-old female came in today for physical examination Mammogram due May of this year Bone density 2020, which showed osteoporosis with a score of-2.9 patient is on Fosamax and is due for repeat bone density Colonoscopy : Patient says that it was performed approximately 4 years ago at [facility], we will try to get the report, she does not remember the provider's name No longer having Pap smears or seeing OBGYN, declined breast exam Labs were done this month reviewed with the patient, she has impaired fasting sugar, I would recommend diet-controlled Patient is taking gabapentin 300 mg t.i.d. for arthritic pain and it has been helping her. Patient is complying with the treatment. Hypothyroidism: Continue levothyroxine 75 mcg TSH within normal limit Patient have IBS, stable with diet controlled Follow-up 3 months physical exam 1 year Orders: Orders MM tomosynthesis screening BI Today M81.0 - Age-related osteoporosis without current pathological fracture, Z12.31 - Encounter for screening mammogram for malignant neoplasm of breast XR DEXA axial skeleton Today M81.0 - Age-related osteoporosis without current pathological fracture, Z12.31 - Encounter for screening mammogram for malignant neoplasm of breast Medications: New ondansetron 8 mg PO ONCE PRN 30 tabs 0RF nausea and vomiting 30 days Discontinued ondansetron HCl Discontinued Reason: Doctor's Order 4 mg PO Q8H 7 days PRN 14 tabs 0RF nausea and vomiting R11.0 - Nausea Coding Level of Care Code Est Pt Prev Care >65y(99947) Diagnoses Encounter for general adult medical examination with abnormal findings Z00.01 Other specified hypothyroidism E03.8 Primary osteoarthritis of both knees M17.0 Osteoarthritis type: primary Chronic pain syndrome G89.4 Depression, major, single episode, mild F32.0 Irritable bowel syndrome with both constipation and diarrhea K58.2 Irritable bowel syndrome type: with both diarrhea and constipation Age-related osteoporosis without current pathological fracture M81.0 Presence of current pathological fracture: without current pathological fracture History of gastric bypass Z98.84 Additional Codes TYRONE-7 Assessment Billing - TYRONE-7 Assessment Tool: TYRONE-7 Assessment [id number] ([id number])
[2024-04-12 11:18] VITALS: BP 118/72; PULSE 58; O2SAT 98; BMI 25.1
== END 2024-04-12 11:41 | disposition home or self-care (01) ==
PROVIDERS: Visit Provider Internal Medicine
DX: Z00.00 Encounter for general adult medical examination without abnormal findings (principal); E03.8 Other specified hypothyroidism; F32.0 Major depressive disorder, single episode, mild; M17.0 Bilateral primary osteoarthritis of knee; G89.4 Chronic pain syndrome; K58.2 Mixed irritable bowel syndrome; M81.0 Age-related osteoporosis without current pathological fracture; Z98.84 Bariatric surgery status
CPT/HCPCS: 99397

== ENCOUNTER 2024-06-28 10:12 | Outpatient (REF) | payer MEDICARE, SELFPAY ==
--- NOTE | ~2024-06-28 | MM_ITS ---
EXAMINATION: BONE DENSITOMETRY CLINICAL INDICATION: Age-related osteoporosis without current pathological fracture. COMPARISON: Previous BD dated 06/07/2021 and baseline BD dated 01/21/2010. TECHNIQUE: Using a [employer] DXA System (software version: 13.1) manufactured by [employer], dual-energy x-ray absorptiometry was performed of the lumbar spine and left hip. The images are of good technical quality. Summary results are attached. FINDINGS: LEFT FEMUR, NECK: Current: BMD 0.730 g/cm2, Z-score -0.3, T-score -2.2, osteopenia. Prior: BMD 0.633 g/cm2. Baseline: BMD 0.849 g/cm2. LEFT FEMUR, TOTAL: Current: BMD 0.797 g/cm2, Z-score 0.1, T-score -1.7, osteopenia, 10.4% increase from previous, 22.6% decrease from baseline (<5% change is not significant). Prior: BMD 0.722 g/cm2. Baseline: BMD 1.030 g/cm2. AP SPINE L1-L4: Current: BMD 1.077 g/cm2, Z-score 1.3, T-score -0.9, normal, 13.6% increase from previous, 4.1% decrease from baseline (<5% change is not significant). Prior: BMD 0.948 g/cm2. Baseline: BMD 1.123 g/cm2. IDENTIFIED RISK FACTORS: Height loss, menopause, osteoporosis, secondary osteoporosis. HISTORY OF FRACTURE: None listed. MEDICATIONS: Calcium supplements or multivitamin, vitamin D, bisphosphonate. MM/XR DEXA axial skeleton IMPRESSION: 1. DIAGNOSIS: Osteopenia based on the lowest T-score value of -2.2 in the femoral neck applying World Health Organization criteria. 2. 10-YEAR FRACTURE RISK PREDICTION, FRAX: Not performed in this patient on estrogen or bone building treatments. 3. Treatment Recommendations: NOF guidelines recommend consideration for treatment in postmenopausal women and men age 50 and older presenting with the following: -A hip or vertebral (clinical or morphometric) fracture. -T-score less than or equal to -2.5 at the femoral neck or spine after appropriate evaluation to exclude secondary causes. -Low bone mass at the hip or spine and a 10-year fracture probability by FRAX of greater than or equal to 3% for hip fracture or greater than or equal to 20% for major osteoporotic fracture based on the [place] adapted WHO algorithm. 4. Other Recommendations: All treatment decisions require clinical judgment and consideration of individual patient factors, including patient preferences, comorbidities, previous drug use, risk factors not captured in the FRAX model (e.g. frailty, falls, vitamin D deficiency, increased bone turnover, interval significant decline in bone density) and possible under or overestimation of fracture risk by FRAX. Additional medical evaluation for secondary cause of low bone mineral density may be appropriate. FUTURE SCAN RECOMMENDATION: People with diagnosed cases of osteoporosis or at high risk for fracture should have regular bone mineral density tests. For patients eligible for Medicare, routine testing is allowed once every 2 years. The testing frequency can be increased to one year for patients who have rapidly progressing disease, those who are receiving or discontinuing medical therapy to restore bone mass, or have additional risk factors.
== END 2024-06-28 10:13 | disposition home or self-care (01) ==
LOC: HO.MAMMO 10:12
PROVIDERS: PCP Internal Medicine; Visit Provider Internal Medicine
DX: Z12.31 Encounter for screening mammogram for malignant neoplasm of breast (principal); M81.0 Age-related osteoporosis without current pathological fracture
CPT/HCPCS: 77063; 77067; 77080

== ENCOUNTER → 2024-06-28 10:30 | Outpatient (BNV) | payer MEDICARE, SELFPAY | PROVIDERS: PCP Internal Medicine; Visit Provider Radiology Diagnostic Radiology | DX: Z12.31 Encounter for screening mammogram for malignant neoplasm of breast (principal) | CPT/HCPCS: 77063; 77067 ==

== ENCOUNTER 2024-07-13 09:37 | Outpatient (AMB) | payer MEDICARE, SELFPAY ==
[2024-07-13 09:39] VITALS: BP 110/64; PULSE 68; O2SAT 93; BMI 24.7
--- NOTE | 2024-07-13 09:39 | MHC.PC.OV ---
Vital Signs 07/13/24 09:39 Height 4 ft 8 in Weight 110 lb 2 oz BMI 24.7 BP 110/64 Blood Pressure Location Lt brachial Position Sitting Pulse 68 Pulse Source Pulse Oximeter Pulse Oximetry (%) 93 Oxygen Delivery Method Room Air Intake Visit Reasons: 3 month follow up Allergies Penicillins Allergy (Mild, Verified 07/13/24 09:39) RASH, hives naproxen Adverse Reaction (Unknown, Verified 07/13/24 09:39) GI upset cat dander Allergy (Unknown, Uncoded 10/09/23 12:07) Unknown DUST Allergy (Unknown, Uncoded 10/09/23 12:07) UNKNOWN Medication List - Last Reconciled 07/13/24 by Barron Ravi MD alendronate 70 mg PO QWEEK 90 days cholecalciferol (vitamin D3) 25 mcg PO DAILY gabapentin 300 mg PO TID 90 days levothyroxine 75 mcg PO DAILY 90 days ondansetron 8 mg PO ONCE PRN 30 days oxybutynin chloride 5 mg PO Q6H Tobacco use date assessed: 07/13/24 Fall risk assessment: No Falls in past year Last assessed Fall Risk: 07/13/24 Dental Screening Dental Screen Date: 07/13/24 Did you have a dental visit in the last 12 months?: Yes Did you have a dental problem in the last 6 months where you did not have access to dental care?: No Was dental information given to patient?: Patient has dentist HPI 3 month follow up HPI Details Patient is 68-year-old female came in today for regular follow-up appointment Patient has been having neck pain these days She has a history of cervical disc problem due to work related injury years ago but that was causing radiation of pain to her left arm And tingling in her hand in the past This time she is having sensation of clicking in her neck with discomfort going to right side of neck Patient says that she takes Excedrin migraine and sometimes she takes it for cervical pain as well But she like to avoid taking it too much because it causes stomach upset I have sent omeprazole for the patient to protect her stomach lining If her pain got worse she is to let me know so I can book her appointment with the pain management. Meanwhile I have ordered cervical spine x-ray. Patient is taking gabapentin 300 mg t.i.d. for arthritic pain and it has been helping her. Patient is complying with the treatment. Hypothyroidism: Continue levothyroxine 75 mcg Due for labs before next visit, order placed Patient have IBS, stable with diet controlled Follow-up 3 months [facility] Medical History Unstable right knee Degeneration, intervertebral disc, cervical Spondylosis of cervical spine Chronic pain syndrome Osteoarthritis of knees, bilateral Muscle cramping Urinary incontinence Osteoarthritis Dyspepsia Other specified hypothyroidism Cervical spondylosis Surgical History History of hernia repair History of esophagogastroduodenoscopy (EGD) History of colonoscopy Lipoma of forearm Anal fistula History of gastric bypass History of tonsillectomy Anal fissure History of section Family History Father CAD (coronary artery disease) Mother HTN (hypertension) Spinal stenosis Dementia Hip fracture Sister No problems noted. Sister No problems noted. Daughter No problems noted. Maternal Grandfather No problems noted. Maternal Grandmother No problems noted. Paternal Grandfather No problems noted. Paternal Grandmother No problems noted. Social History Housing: House Alcohol intake: never Patient Tobacco Use Status: Former Tobacco user Tobacco use type: Cigarette e-Cigarette/Vaping Use: Never Used Second Hand Smoke Exposure: No service: No Current occupational status: retired and disabled Cognitive needs: No Hearing needs: No Vision needs: Yes Questionnaire PHQ-9 Over the last 2 weeks, how often have you been bothered by any of the following problems? 1. Little interest or pleasure in doing things: not at all 2. Feeling down, depressed, or hopeless: not at all 3. Trouble falling or staying asleep, or sleeping too much: not at all 4. Feeling tired or having little energy: not at all 5. Poor appetite or overeating: not at all 6. Feeling bad about yourself - or that you are a failure or have let yourself or your family down: not at all 7. Trouble concentrating on things, such as reading the newspaper or watching television: not at all 8. Moving or speaking so slowly that other people could have noticed. Or the opposite - being so fidgety or restless that you have been moving around a lot more than usual: not at all 9. Thoughts that you would be better off or of hurting yourself in some way: not at all Total score: 0 Depression Screening Interpretation: Negative Depression Screening Done: Yes 59429 - PHQ-9 Billing: Yes Source: Developed by Drs. Harley Chapa, Anca Camilo, Ezekiel Gan and colleagues, with an educational omari from [employer]. Thrive Questionnaire Date Thrive assessed: 07/13/24 I am a: Patient What is your living situation today?: I have a steady place to live Within the past 12 months, did the food you bought not last and you didn't have the money to get more?: Never true Within the past 12 months, did you worry whether your food would run out before you got money to buy more?: Never true Do you have trouble paying for medicines?: No Do you have trouble getting transportation to medical appointments?: No Do you have trouble paying your heating and electricity bill?: No Do you have trouble taking care of your child, family member or friend?: No Do you have trouble with day-to-day activities such as bathing, preparing meals, shopping, managing finances, etc.?: No Are you currently unemployed and looking for a job?: No Are you interested in more education?: No Please select the resources that you would like help with: None Currently or been in a relationship where the following occur: No concerns reported THRIVE Score: 0 AUDIT C Alcohol Use Questionnaire (AUDIT-C) 1. How often do you have a drink containing alcohol?: Never 3. How often do you have six or more drinks on one occasion?: Never Total Score: 0 Score Reviewed/Action Taken: Yes TYRONE-7 AMB Questionnaire TYRONE-7 Date TYRONE - 7 assessed: 07/13/24 Feeling nervous, anxious, or on edge: 0 = Not at all Not being able to stop or control worryin = Not at all Worrying too much about different things: 0 = Not at all Trouble relaxin = Not at all Being so restless that it is hard to sit still: 0 = Not at all Becoming easily annoyed or irritable: 0 = Not at all Feeling afraid as if something awful might happen: 0 = Not at all Total TYRONE-7 score (0-4 normal; 5-9 mild; 10-14 moderate; 15-21 severe): 0 Source: Developed by Drs. Harley Chapa, Anca Camilo, Ezekiel Gan and colleagues, with an educational omari from [employer]. TYRONE-7 Assessment Billing TYRONE-7 Assessment Tool: TYRONE-7 Assessment 43799 Review of Systems Const Denies chills and Denies fever(s) ENT Denies epistaxis and Denies nasal discharge Card Denies chest pain Resp Denies chest congestion, Denies cough and Denies hemoptysis GI Denies diarrhea and Denies nausea Skin/Breast Denies rash Neuro Reports no additional complaints Psych Reports no additional complaints Endo Reports no additional complaints Physical exam (Primary Care) Vital Signs: Last Vital Signs Pulse 68 07/13/24 09:39 BP 110/64 07/13/24 09:39 Pulse Ox 93 07/13/24 09:39 Oxygen Delivery Method Room Air 07/13/24 09:39 BMI result Body Mass Index 24.7 Tobacco/Smoking Status: Tobacco use Status Tobacco use date assessed 07/13/24 07/13/24 09:40 Patient Tobacco Use Status Former Tobacco user 07/13/24 09:40 Tobacco use type Cigarette 07/13/24 09:40 e-Cigarette/Vaping Use Never Used 07/13/24 09:40 PHQ-9: PHQ-9 Score PHQ-9: Total score 0 07/13/24 09:40 Depression Screening Interpretation: Negative Thrive Assessment: Date of Thrive Assessment Date Thrive assessed 07/13/24 07/13/24 09:40 Currently or been in a relationship where the following occur: No concerns reported Const General: cooperative, comfortable and no acute distress Orientation/consciousness: patient oriented x3 HENMT Head: Yes normocephalic Eyes General: appearance normal, both eyes and all related structures Resp Effort & Inspection: normal respiratory effort, no cough and no stridor Cardio Rhythm: regular rhythm Heart sounds: S1 normal heart sound present and S2 normal heart sound present Skin General skin exam: turgor normal Neuro General: patient oriented x3, tone normal and moves all extremities Extrem Right lower extremity: no edema Left lower extremity: no edema Assessment and Plan Assessment & Plan (1) Cervicalgia: Code(s): M54.2 - Cervicalgia (2) Other specified hypothyroidism: Code(s): E03.8 - Other specified hypothyroidism (3) Osteoarthritis of knees, bilateral: Code(s): M17.0 - Bilateral primary osteoarthritis of knee Qualifiers: Osteoarthritis type: primary Qualified Code(s): M17.0 - Bilateral primary osteoarthritis of knee (4) Chronic pain syndrome: Code(s): G89.4 - Chronic pain syndrome (5) Depression, major, single episode, mild: Code(s): F32.0 - Major depressive disorder, single episode, mild (6) IBS (irritable bowel syndrome): Code(s): K58.9 - Irritable bowel syndrome without diarrhea Qualifiers: Irritable bowel syndrome type: with both diarrhea and constipation Qualified Code(s): K58.2 - Mixed irritable bowel syndrome (7) Age related osteoporosis: Code(s): M81.0 - Age-related osteoporosis without current pathological fracture Qualifiers: Presence of current pathological fracture: without current pathological fracture Qualified Code(s): M81.0 - Age-related osteoporosis without current pathological fracture (8) History of gastric bypass: Code(s): Z98.84 - Bariatric surgery status (9) Spondylosis of cervical spine: Code(s): M47.812 - Spondylosis without myelopathy or radiculopathy, cervical region (10) Arthritis, multiple joint involvement: Code(s): M12.9 - Arthropathy, unspecified (11) Impaired fasting blood sugar: Code(s): R73.01 - Impaired fasting glucose Plan Patient is 68-year-old female came in today for regular follow-up appointment Patient has been having neck pain these days She has a history of cervical disc problem due to work related injury years ago but that was causing radiation of pain to her left arm And tingling in her hand in the past This time she is having sensation of clicking in her neck with discomfort going to right side of neck Patient says that she takes Excedrin migraine and sometimes she takes it for cervical pain as well But she like to avoid taking it too much because it causes stomach upset I have sent omeprazole for the patient to protect her stomach lining If her pain got worse she is to let me know so I can book her appointment with the pain management. Meanwhile I have ordered cervical spine x-ray. Patient is taking gabapentin 300 mg t.i.d. for arthritic pain and it has been helping her. Patient is complying with the treatment. Hypothyroidism: Continue levothyroxine 75 mcg Due for labs before next visit, order placed Patient have IBS, stable with diet controlled Impaired fasting sugar: Diet-controlled Neck examination reveals limited range of motion secondary to pain Follow-up 3 months Orders: Orders XR cervical spine 2V Today M54.2 - Cervicalgia Complete Blood Count Auto Diff Today F32.0 - Major depressive disorder, single episode, mild, G89.4 - Chronic pain syndrome, K58.2 - Mixed irritable bowel syndrome, M12.9 - Arthropathy, unspecified, M17.0 - Bilateral primary osteoarthritis of knee, M47.812 - Spondylosis without myelopathy or radiculopathy, cervical region, M54.2 - Cervicalgia, M81.0 - Age-related osteoporosis without current pathological fracture, Z98.84 - Bariatric surgery status Comprehensive [place]. Panel Fast Today F32.0 - Major depressive disorder, single episode, mild, G89.4 - Chronic pain syndrome, K58.2 - Mixed irritable bowel syndrome, M12.9 - Arthropathy, unspecified, M17.0 - Bilateral primary osteoarthritis of knee, M47.812 - Spondylosis without myelopathy or radiculopathy, cervical region, M54.2 - Cervicalgia, M81.0 - Age-related osteoporosis without current pathological fracture, Z98.84 - Bariatric surgery status Hemoglobin A1c Today R73.01 - Impaired fasting glucose TSH reflex Free T4 Today F32.0 - Major depressive disorder, single episode, mild, G89.4 - Chronic pain syndrome, K58.2 - Mixed irritable bowel syndrome, M12.9 - Arthropathy, unspecified, M17.0 - Bilateral primary osteoarthritis of knee, M47.812 - Spondylosis without myelopathy or radiculopathy, cervical region, M54.2 - Cervicalgia, M81.0 - Age-related osteoporosis without current pathological fracture, Z98.84 - Bariatric surgery status Medications: New dkpjfmu-ietxlfaybeedm-kohokobm 250-250-65 mg (Excedrin Extra Strength) 1 tab PO ONCE PRN omeprazole 20 mg PO BID 90 caps 0RF stomach pain Coding Level of Care Code Est Pt Level 4 (35137) Complex EM visit Add On G2211 Diagnoses Cervicalgia M54.2 Other specified hypothyroidism E03.8 Primary osteoarthritis of both knees M17.0 Osteoarthritis type: primary Chronic pain syndrome G89.4 Depression, major, single episode, mild F32.0 Irritable bowel syndrome with both constipation and diarrhea K58.2 Irritable bowel syndrome type: with both diarrhea and constipation Age-related osteoporosis without current pathological fracture M81.0 Presence of current pathological fracture: without current pathological fracture History of gastric bypass Z98.84 Spondylosis of cervical spine M47.812 Arthritis, multiple joint involvement M12.9 Impaired fasting blood sugar R73.01 Additional Codes TYRONE-7 Assessment Billing - TYRONE-7 Assessment Tool: TYRONE-7 Assessment 21370 ([id number])
== END 2024-07-13 10:00 | disposition home or self-care (01) ==
PROVIDERS: PCP Internal Medicine; Visit Provider Internal Medicine
DX: M54.2 Cervicalgia (principal); E03.8 Other specified hypothyroidism; M17.0 Bilateral primary osteoarthritis of knee; G89.4 Chronic pain syndrome; F32.0 Major depressive disorder, single episode, mild; K58.2 Mixed irritable bowel syndrome; M81.0 Age-related osteoporosis without current pathological fracture; Z98.84 Bariatric surgery status; M47.812 Spondylosis without myelopathy or radiculopathy, cervical region; M12.9 Arthropathy, unspecified; R73.01 Impaired fasting glucose
CPT/HCPCS: 96127; 99214; G2211

== ENCOUNTER 2024-09-17 10:52 | Outpatient (AMB) | payer MEDICARE, SELFPAY ==
--- OUTSIDE RECORDS SUMMARY | 2024-09-17 10:54 | XMS_ITS | Patient Health Record ---
Author Organization [facility] Address [address] [place] [address] Care Team Providers Care After School Program Teacher Name Role Phone Trav CALDERON, Asma Primary Care Provider Maura Kaye Unavailable [phone] ALLERGIES Allergen (clinical drug ingredient) Drug/Non Drug Allergy documented on EMR Reaction Allergy Type Onset Date Status naproxen Naproxen upset GI Drug Allergy Active Cat dander Cat Dander Unknown Allergy Active Dust Mites Unknown Allergy Active Substance with penicillin structure and antibacterial mechanism of action (substance) Penicillins rash, hives Drug Allergy Active REASON FOR REFERRAL No Information MEDICATIONS Medication SIG (Take, Route, Frequency, Duration) Notes Start Date End Date Status Gabapentin 300 MG 1 capsule Orally Onc e a day Active Multivitamin Active Vitamin D Active oxyBUTYnin Chloride 5 MG 1 tablet Orally Twice a day Active Eye Drops Active Vitamin D3 25 MCG (1000 UT) 1 capsule Or ally Once a day Unknown Levothyroxine Sodium 75 MCG 1 tablet in the morning on an empty stomach Orally Once a day Active Alendronate Sodium 70 MG 1 tablet 30 min utes before the first food, beverage or medicine of the day with plain water Orally Active IMMUNIZATIONS Vaccine Route Administration Date Status Comme nts Influenza Unknown 09/01/2022 Administered SOCIAL HISTORY Tobacco Use: Social History Observation Description Date Details (start date - stop date) Former Smoker NA - NA Sex Assigned At : Social History Observation Description Sex Assigned At Unknown Tobacco Use/Smoking Question Answer Notes Are you a: former smoker Additional Findings: Tobacco Non-User Current no n-smoker Alcohol Screen Question Answer Notes Did you have a drink containing alcohol in the p ast year? No Points 0 Interpretation Negative Tobacco use other than smoking: Question Answer Notes Are you an other tobacco user? No PROBLEMS Problem Type ICD Code Onset Dates Problem Status W/U Status Risk SNOMED Code Notes Problem Hallux valgus (acquired), right foot (M20.11) Active confirmed [id number] Problem Hammer toe of right foot (M20.41) Active confirmed [id number] PLAN OF TREATMENT No Information Insurance Providers Payer Name Payer Address Payer Phone Subscriber Number Group Number Insured Name Patient Relationship to Insured Coverage Start Date Coverage End Date [employer] Medicare [id number] [address] [address] [place] [address] [id number] Jennyfer Toribio Self - patient is the insured MEDICAL (GENERAL) HISTORY Medical History History ICD Code Cervical spondylosis Chronic Pain Syndrome Degeneration, intervertebral disc, cervi jeannette Dyspepsia osteoarthritis Hypothyroidism Spondylosis of cervical spine Urinary incontinence Muscle cramping Unstable right knee Arthritis Back,Hip,and Knee pain Gall bladder problems Numbness Osteoporosis thyroid Measles Chicken pox pre-diabetic Surgical History Surgery Date(Month/Year) section colonoscopy gastric bypass 2004 hernia repair tonsillectomy 1977 Lipoma of forearm 1990 esophagogastroduodenoscopy anal fissure anal fistula gall bladder 2004 abdominal hernia 2011
--- OUTSIDE RECORDS SUMMARY | 2024-09-17 10:54 | XMS_ITS ---
Author Organization [facility] Address [address] [place] [address] Care Team Providers Care Multimedia Programmer Name Role Phone Trav CALDERON, Asma Primary Care Provider Maura Kaye [phone] REASON FOR VISIT [facility] Entered Encounters Encounter Location Date Provider Diagnosis [facility] [address] [place] [address] 07/02/2023 Maura Griffin PLAN OF TREATMENT No Information
--- OUTSIDE RECORDS SUMMARY | 2024-09-17 10:54 | XMS_ITS ---
Author Organization [facility] Address [address] [place] [address] Care Team Providers Care Supervisor Inspecting Name Role Phone Trav CALDERON, Asma Primary Care Provider Maura Kaye Unavailable [phone] ALLERGIES Allergen (clinical drug ingredient) Drug/Non Drug Allergy documented on EMR Reaction Allergy Type Onset Date Status Information temporarily unavailable Naproxen upset GI Drug Allergy Active Information temporarily unavailable Cat Dander Unknown Allergy Active Information temporarily unavailable Dust Mites Unknown Allergy Active Information temporarily unavailable Penicillins rash, hives Drug Allergy Active REASON FOR VISIT Pcp- 03/2023, Painful Toe(s) MEDICATIONS Medication SIG (Take, Route, Frequency, Duration) Notes Start Date End Date Status Gabapentin 300 MG 1 capsule Orally Onc e a day Active Multivitamin Active Vitamin D Active Vitamin D3 25 MCG (1000 UT) 1 capsule Or ally Once a day Unknown Levothyroxine Sodium 75 MCG 1 tablet in the morning on an empty stomach Orally Once a day Active oxyBUTYnin Chloride 5 MG 1 tablet Orally Twice a day Active Eye Drops Active Alendronate Sodium 70 MG 1 tablet 30 min utes before the first food, beverage or medicine of the day with plain water Orally Active SOCIAL HISTORY Tobacco Use: Social History Observation [...] valgus (acquired), right foot (M20.11) Active confirmed [id number] Problem Hammer toe of right foot (M20.41) Active confirmed [id number] VITAL SIGNS Height 4 ft 8 in in 07/07/2023 Weight 112 lbs 07/07/2023 BMI 25.11 kg/m2 07/07/2023 Encounters Encounter Location Date Provider Diagnosis [facility] [address] [place] [address] 07/07/2023 Maura Griffin Hallux valgus (acquired), right foot M20.11 and Hammer toe of right foot M20.41 ASSESSMENTS Encounter Date Diagnosis Assessment Notes Treatment Notes Treatment Clinical Notes 07/07/2023 Hallux valgus (acquired), right foot (ICD-10 - M20.11) 07/07/2023 Hammer toe of right foot (ICD-10 - M20.41) PLAN OF TREATMENT Next Appt Details Follow Up: prn, Reason: Progress Notes * Examination Category Sub-Category Detail Notes Neurological SENSORY: Neurological exa m reveals intact sensorium, pain sensation normal, vibration sensation intact, pinprick sensation is normal in the lower extremities, Pt denies, anesthesia, burning, paresthesia, tingling, B/L DEEP TENDON REFLEXES: Achilles, 2/4, B/L Dermatologic SKIN FINDINGS: Skin exam reveal s normal texture, elasticity, and turgor. There are no masses. The interspaces are clear Orthopedic BUNION: Medially promine nt 1st MPJ , Lateral tracking 1st MPJ incompletely reducible , RIGHT FOOTWEAR: shoe gear properties exacerbate patients foot/toe deformity DIGITAL DEFORMITIES: Digital contracture , PIPJ, 2-5 B/L, reducible with WB, or to push-up test, no over, nor underlapping MUSCLE STRENGTH: 5/5 all groups in a symmetrical fashion , B/L General Examination GENERAL APPEARANCE: Reveals a pleasant, alert, well- nourished, well-developed, well hydrated individual, who demonstrates proper attention to hygiene/body habitus, and is in no acute distress, Pt serves as own historian for office visit today ORIENTED: person, place, and t carrie Ophthalmology Referral DIABETES EYE EXAM Diabetic Reti nopathy Screening:: Yes Findings of Diabetic Eye Exam:: no retin opathy Vascular DP PULSES(B): 3/4, B/L PT PULSES(B): 3/4, B/L CAPILLARY FILL TIME: immediate, all digi ts, B/L TEMPERTURE GRADIENT(C): warm to cool, pr oximal to distal, B/L TROPHIC CONDITION-TEXTURE/ELASTICITY/TURGOR/HAIR GROWTH(B): normal, B/L EDEMA(C): absent, B/L PIGMENTATION: normal, B/L History and Physical Notes * HPI (History of Present Illness) Category Sub-Category Detail Notes Toe pain Nature: tenderness Location: Right foot , Great t oe , 2nd toe Duration: several months Onset/Cause: gradual Course: , improved Aggravated by: any pressure, shoes Treatments: bracing/splinting/pa dding
[2024-09-17 11:08] VITALS: BP 112/60; PULSE 71; TEMP 36.7; O2SAT 95; BMI 23.5
--- NOTE | 2024-09-17 11:08 | AM.OFFWIN_ITS ---
Intake Vital Signs 09/17/24 11:08 Height 4 ft 8 in Weight 105 lb BMI 23.5 BP 112/60 Blood Pressure Location Rt brachial Position Sitting Pulse 71 Pulse Source Pulse Oximeter Temp 98.0 F Temp Source Oral Pulse Oximetry (%) 95 Oxygen Delivery Method Room Air Intake Visit Reasons: EP-Nausea, cramping, diarrhea Intake Note: Pt is here today c/o diarrhea, nausea and abdominal cramps x5days Patient Tobacco Use Status: Former Tobacco user Allergies Penicillins Allergy (Mild, Verified 09/17/24 11:12) RASH, hives naproxen Adverse Reaction (Unknown, Verified 09/17/24 11:12) GI upset cat dander Allergy (Unknown, Uncoded 09/17/24 11:12) Unknown DUST Allergy (Unknown, Uncoded 09/17/24 11:12) UNKNOWN HPI HPI Comments History of Present Illness Details Patient is a 68yo F who presents to office with complaint of nausea/diarrhea and abdominal cramping She said diarrhea since Thursday; watery, started dark brown + foul odor No recent antibiotic use, travel or sick contacts She has tried imodium on Thursday with some relief Going 3-4 times over night + associated nausea and dry heaving Has been able to eat and drink Eating bland diet and pedialyte She said + cramping associated No fever or chills Hx sleeve. has been in contact with Dr Gonzalez, PCP Bouts of feeling better and able to eat eggs, chicken and rice etc but has episodes of diarrhea that comes back worse at night PFSH Medical History Unstable right knee Degeneration, intervertebral disc, cervical Spondylosis of cervical spine Chronic pain syndrome Osteoarthritis of knees, bilateral Muscle cramping Urinary incontinence Osteoarthritis Dyspepsia Other specified hypothyroidism Cervical spondylosis Surgical History History of hernia repair History of esophagogastroduodenoscopy (EGD) History of colonoscopy Lipoma of forearm Anal fistula History of gastric bypass History of tonsillectomy Anal fissure History of section Family History Father CAD (coronary artery disease) Mother HTN (hypertension) Spinal stenosis Dementia Hip fracture Sister No problems noted. Sister No problems noted. Daughter No problems noted. Maternal Grandfather No problems noted. Maternal Grandmother No problems noted. Paternal Grandfather No problems noted. Paternal Grandmother No problems noted. Social History Housing: House Alcohol intake: never Patient Tobacco Use Status: Former Tobacco user Tobacco use type: Cigarette e-Cigarette/Vaping Use: Never Used Second Hand Smoke Exposure: No service: No Current occupational status: retired and disabled Cognitive needs: No Hearing needs: No Vision needs: Yes Review of Systems Const Denies body aches, Denies chills, Reports fatigue and Denies fever(s) Eyes Denies blurry vision ENT Denies dizziness and Denies sinus pain Card Denies chest pain, Denies syncope and Denies dyspnea Resp Denies cough and Denies dyspnea GI Reports abdominal pain (cramping with bms), Denies melena, Denies hematochezia, Reports change in bowel habits, Reports diarrhea, Reports loose stools, Denies nausea and Denies vomiting Denies difficulty voiding Musc Denies back pain Skin/Breast Denies rash Neuro Denies dizziness and Denies syncope Endo Reports fatigue Physical Exam Vital Signs: Last Vital Signs Temp 98.0 F 09/17/24 11:08 Pulse 71 09/17/24 11:08 BP 112/60 09/17/24 11:08 Pulse Ox 95 09/17/24 11:08 Oxygen Delivery Method Room Air 09/17/24 11:08 BMI result Body Mass Index 23.5 General: Non-toxic, NAD. Speaking full sentences. Skin: Warm dry throughout. No tenting Eye: EOMI HENT: Normal mucosa dry. Airway patent. Uvula midline. No pharyngeal erythema or edema. 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 Respiratory: CTA bilaterally. No wheezes, rales or rhonchi Cardiac: RRR. No murmur Abdominal: BS present x 4 quadrant. No tenderness to light or deep palpation. No rebound or guarding MSK: Full ROM extremities. Neurology: A/O. No aphasia or facial droop. Gait without abnormality Psych: Good mood and affect Assessment & Plan Assessment & Plan (1) Diarrhea: Code(s): R19.7 - Diarrhea, unspecified Qualifiers: Diarrhea type: unspecified type Qualified Code(s): R19.7 - Diarrhea, unspecified Plan: Patient seen and evaluated. No acute abomen. She is able to tolerate po liquid Stool GI profile ordered and she will give to lab for testing; PCP included in results Discussed bland diet and monitor for black or blood and seek er with worsening pain, presyncope etc Discussed s/s of diverticulitis but no sharp pain LLQ and no fever but she will monitor Patient gave verbal understanding and had no additional questions or concerns at time of discharge All questions answered Orders: Orders GI Panel Today R19.7 - Diarrhea, unspecified Giardia Ag Stool EIA Today R19.7 - Diarrhea, unspecified Coding Level of Care Code Est Pt Level 3 (77017) Diagnoses Diarrhea, unspecified type R19.7 Diarrhea type: unspecified type
== END 2024-09-17 11:38 | disposition home or self-care (01) ==
PROVIDERS: PCP Internal Medicine; Visit Provider Physician Assistant
DX: R19.7 Diarrhea, unspecified (principal)

== ENCOUNTER → 2024-09-17 10:52 | Outpatient (BNVA) | payer MEDICARE, SELFPAY | PROVIDERS: PCP Internal Medicine | DX: R19.7 Diarrhea, unspecified (principal) | CPT/HCPCS: 99212 ==

== ENCOUNTER 2024-09-19 06:18 | Outpatient (REF) | payer MEDICARE, SELFPAY ==
[2024-09-19 12:31] LABS: Adenovirus F 40/41 Not Detected (Not Detect.); Astrovirus Not Detected (Not Detect.); Cryptosporidium Not Detected (Not Detect.); Cyclospora cayetanensis Not Detected (Not Detect.); E. coli EAEC Not Detected (Not Detect.); E. coli EPEC Not Detected (Not Detect.); E. coli ETEC Not Detected (Not Detect.); E. coli STEC Not Detected (Not Detect.); Entamoeba histolytica Not Detected (Not Detect.); Giardia lamblia Not Detected (Not Detect.); Norovirus GI/GII Not Detected (Not Detect.); Plesiomonas shigelloides Not Detected (Not Detect.); Rotavirus A Not Detected (Not Detect.); Salmonella Not Detected (Not Detect.); Sapovirus Not Detected (Not Detect.); Shigella sp./EIEC Not Detected (Not Detect.); Vibrio Not Detected (Not Detect.); Vibrio Cholerae Not Detected (Not Detect.); Yersinia enterocolitica Not Detected (Not Detect.)
[2024-09-19 13:39] LABS: Campylobacter Detected (Not Detect.)
== END 2024-09-19 06:19 | disposition home or self-care (01) ==
LOC: HO.HMGCLNP 06:18
PROVIDERS: PCP Internal Medicine; Visit Provider Physician Assistant
DX: R19.7 Diarrhea, unspecified (principal)
CPT/HCPCS: 87329; 87507

== ENCOUNTER 2024-09-22 08:22 | Outpatient (AMB) | payer MEDICARE, SELFPAY ==
--- NOTE | 2024-09-22 08:30 | A.OFFPC_ITS ---
Intake Visit Reasons: Diarrhea Allergies Penicillins Allergy (Mild, Verified 09/22/24 08:31) RASH, hives naproxen Adverse Reaction (Unknown, Verified 09/22/24 08:31) GI upset cat dander Allergy (Unknown, Uncoded 09/17/24 11:12) Unknown DUST Allergy (Unknown, Uncoded 09/17/24 11:12) UNKNOWN Medication List - Last Reconciled 09/23/24 by Barron Ravi MD alendronate 70 mg PO QWEEK 90 days wfohcch-[id number]-qdogvpdr 250-250-65 mg (Excedrin Extra Strength) 1 tab PO ONCE PRN cholecalciferol (vitamin D3) 25 mcg PO DAILY gabapentin 300 mg PO TID 90 days levothyroxine 75 mcg PO DAILY 90 days omeprazole 20 mg PO BID ondansetron 8 mg PO ONCE PRN 30 days oxybutynin chloride 5 mg PO Q6H Tobacco use date assessed: 09/22/24 Fall risk assessment: No Falls in past year Last assessed Fall Risk: 09/22/24 Dental Screening Dental Screen Date: 09/22/24 Did you have a dental visit in the last 12 months?: Yes Did you have a dental problem in the last 6 months where you did not have access to dental care?: No Was dental information given to patient?: Patient has dentist HPI Diarrhea HPI Details Follow-up diarrhea Patient was evaluated in walk-in clinic and stool studies as ordered They came back positive for Campylobacter infection Patient says that she is feeling better now for the past 2 days she is having her regular solid bowel movement There is no fever no chills no abdominal pain She is gradually progressing her diet as well. [facility] Medical History Unstable right knee Degeneration, intervertebral disc, cervical Spondylosis of cervical spine Chronic pain syndrome Osteoarthritis of knees, bilateral Muscle cramping Urinary incontinence Osteoarthritis Dyspepsia Other specified hypothyroidism Cervical spondylosis Surgical History History of hernia repair History of esophagogastroduodenoscopy (EGD) History of colonoscopy Lipoma of forearm Anal fistula History of gastric bypass History of tonsillectomy Anal fissure History of section Family History Father CAD (coronary artery disease) Mother HTN (hypertension) Spinal stenosis Dementia Hip fracture Sister No problems noted. Sister No problems noted. Daughter No problems noted. Maternal Grandfather No problems noted. Maternal Grandmother No problems noted. Paternal Grandfather No problems noted. Paternal Grandmother No problems noted. Social History Housing: House Alcohol intake: never Patient Tobacco Use Status: Former Tobacco user Tobacco use type: Cigarette e-Cigarette/Vaping Use: Never Used Second Hand Smoke Exposure: No service: No Current occupational status: retired and disabled Cognitive needs: No Hearing needs: No Vision needs: Yes Questionnaire Thrive Questionnaire Date Thrive assessed: 07/06/24 I am a: Patient What is your living situation today?: I have a steady place to live Within the past 12 months, did the food you bought not last and you didn't have the money to get more?: Never true Within the past 12 months, did you worry whether your food would run out before you got money to buy more?: Never true Do you have trouble paying for medicines?: No Do you have trouble getting transportation to medical appointments?: No Do you have trouble paying your heating and electricity bill?: No Do you have trouble taking care of your child, family member or friend?: No Do you have trouble with day-to-day activities such as bathing, preparing meals, shopping, managing finances, etc.?: No Are you currently unemployed and looking for a job?: No Are you interested in more education?: No Please select the resources that you would like help with: None Currently or been in a relationship where the following occur: No concerns reported THRIVE Score: 0 AUDIT C Alcohol Use Questionnaire (AUDIT-C) 1. How often do you have a drink containing alcohol?: Never 3. How often do you have six or more drinks on one occasion?: Never Total Score: 0 Score Reviewed/Action Taken: Yes TYRONE-7 AMB Questionnaire TYRONE-7 Date TYRONE - 7 assessed: 07/13/24 Source: Developed by Drs. Harley Chapa, Anca Camilo, Ezekiel Gan and colleagues, with an educational omari from [employer]. Review of Systems Const Denies chills and Denies fever(s) ENT Denies epistaxis and Denies nasal discharge Card Denies chest pain Resp Denies chest congestion, Denies cough and Denies hemoptysis GI Denies nausea Skin/Breast Denies rash Neuro Reports no additional complaints Psych Reports no additional complaints Endo Reports no additional complaints Physical exam (Primary Care) Tobacco/Smoking Status: Tobacco use Status Tobacco use date assessed 09/22/24 09/22/24 08:31 Patient Tobacco Use Status Former Tobacco user 09/22/24 08:31 Tobacco use type Cigarette 09/22/24 08:31 e-Cigarette/Vaping Use Never Used 09/22/24 08:31 Thrive Assessment: Date of Thrive Assessment Date Thrive assessed 07/06/24 09/22/24 08:31 Currently or been in a relationship where the following occur: No concerns reported Telehealth Telehealth Telehealth Platform: [employer] [facility] Location of provider rendering services: practice address Location of patient: address on file Patient Identification confirmed using: Name, : Yes Telehealth method: voice only Patient verbally consented to treatment: Yes Patient verbally consented to billing insurance company: Yes Patient informed of any privacy concerns related to visit: Yes Minutes spent on Phone/Video with Pt.: 12 Coding Level of Care Code Tele Est Pt Level 3 (14937) Diagnoses Campylobacter diarrhea A04.5 Assessment & Plan Assessment & Plan (1) Campylobacter diarrhea: Code(s): A04.5 - Campylobacter enteritis Category: Medical Plan Follow-up diarrhea Patient was evaluated in walk-in clinic and stool studies as ordered They came back positive for Campylobacter infection Patient says that she is feeling better now for the past 2 days she is having her regular solid bowel movement There is no fever no chills no abdominal pain She is gradually progressing her diet as well.
== END 2024-09-22 11:25 | disposition home or self-care (01) ==
LOC: HO.HMCC 08:22
PROVIDERS: PCP Internal Medicine; Visit Provider Internal Medicine
DX: A04.5 Campylobacter enteritis (principal)

== ENCOUNTER → 2024-09-22 08:22 | Outpatient (BNVA) | payer MEDICARE, SELFPAY | PROVIDERS: PCP Internal Medicine; Visit Provider Internal Medicine ==

== ENCOUNTER 2024-09-27 08:41 | Outpatient (AMB) | payer MEDICARE, SELFPAY ==
[2024-09-27 08:48] VITALS: BP 110/62; PULSE 72; TEMP 36.6; O2SAT 96; BMI 23.5
--- NOTE | 2024-09-27 08:48 | AM.OFFWIN_ITS ---
Intake Vital Signs 09/27/24 08:48 Height 4 ft 8 in Weight 105 lb BMI 23.5 BP 110/62 Blood Pressure Location Rt brachial Position Sitting Pulse 72 Pulse Source Pulse Oximeter Temp 97.8 F Temp Source Oral Pulse Oximetry (%) 96 Oxygen Delivery Method Room Air Intake Visit Reasons: EP diarrhea, nauseous Intake Note: pt is here for c/o diarrhea with nausea, ongoing 2 week Patient Tobacco Use Status: Former Tobacco user Allergies Penicillins Allergy (Mild, Verified 09/27/24 08:49) RASH, hives naproxen Adverse Reaction (Unknown, Verified 09/27/24 08:49) GI upset cat dander Allergy (Unknown, Uncoded 09/17/24 11:12) Unknown DUST Allergy (Unknown, Uncoded 09/17/24 11:12) UNKNOWN Do you need a note to return to daycare/school/sports/work: No HPI HPI Comments History of Present Illness Details Patient is a 69-year-old female complaining of prolonged abdominal cramping and diarrhea. She states she came to the walk-in clinic on September 17 complaining of similar symptoms, she was given a GI panel and tested positive for Campylobacter infection. She followed up with her PCP on September 22 and appeared to be feeling better so antibiotics were not prescribed at that point. She tells me that 2 days ago, her symptoms got much worse and they are back to diarrhea. She denies anything bloody or black in her diarrhea since Thursday. She was trying to stick to a bland diet but as she felt things were getting better, she did increase her diet to more typical foods she eats. She denies any fevers. [facility] Medical History Unstable right knee Degeneration, intervertebral disc, cervical Spondylosis of cervical spine Chronic pain syndrome Osteoarthritis of knees, bilateral Muscle cramping Urinary incontinence Osteoarthritis Dyspepsia Other specified hypothyroidism Cervical spondylosis Surgical History History of hernia repair History of esophagogastroduodenoscopy (EGD) History of colonoscopy Lipoma of forearm Anal fistula History of gastric bypass History of tonsillectomy Anal fissure History of section Family History Father CAD (coronary artery disease) Mother HTN (hypertension) Spinal stenosis Dementia Hip fracture Sister No problems noted. Sister No problems noted. Daughter No problems noted. Maternal Grandfather No problems noted. Maternal Grandmother No problems noted. Paternal Grandfather No problems noted. Paternal Grandmother No problems noted. Social History Housing: House Alcohol intake: never Patient Tobacco Use Status: Former Tobacco user Tobacco use type: Cigarette e-Cigarette/Vaping Use: Never Used Second Hand Smoke Exposure: No service: No Current occupational status: retired and disabled Cognitive needs: No Hearing needs: No Vision needs: Yes Review of Systems Const All systems reviewed & are unremarkable except as noted in HPI and below Physical Exam Vital Signs: Last Vital Signs Temp 97.8 F 09/27/24 08:48 Pulse 72 09/27/24 08:48 BP 110/62 09/27/24 08:48 Pulse Ox 96 09/27/24 08:48 Oxygen Delivery Method Room Air 09/27/24 08:48 BMI result Body Mass Index 23.5 Const General: cooperative, healthy appearing, comfortable, no acute distress and well developed Orientation/consciousness: patient oriented x3 Limitations: no limitations HEENT Head: Yes normal to inspection Ears: hearing grossly normal bilaterally General nose exam: Normal external nose present Face and sinus: Yes normal facial exam Eyes General: appearance normal, both eyes and all related structures Neck Neck: Yes normal visual inspection and Yes full ROM Resp Effort & Inspection: normal respiratory effort and able to speak in complete sentences GI Inspection: Yes normal to inspection Palpation (GI): Soft to palpation and Tenderness to palpation present (GI) in the epigastrum Skin General skin exam: no rashes or lesions noted Neuro General: patient oriented x3 Extrem General: Yes normal to inspection Assessment & Plan Assessment & Plan (1) Campylobacter diarrhea: Code(s): A04.5 - Campylobacter enteritis Plan: Vital signs are stable, patient well-appearing. As her symptoms seemed to be relapsing. We will treat with antibiotics. Also recommended she return to a bland diet for the next couple of days and gradually increase as her symptoms allow. Recommended if she sees any bloody or black stools, pain gets worse or she develops a fever to let her PCP know or go to the emergency department. Plan see above Medications: New azithromycin 500 mg (2 x 250 mg) PO DAILY 6 tabs 0RF 3 days Coding Level of Care Code Est Pt Level 3 (95586) Diagnoses Campylobacter diarrhea A04.5
== END 2024-09-27 09:45 | disposition home or self-care (01) ==
PROVIDERS: PCP Internal Medicine; Visit Provider Physician Assistant
DX: A04.5 Campylobacter enteritis (principal)

== ENCOUNTER → 2024-09-27 08:41 | Outpatient (BNVA) | payer MEDICARE, SELFPAY | PROVIDERS: PCP Internal Medicine; Visit Provider Physician Assistant | DX: A04.5 Campylobacter enteritis (principal) | CPT/HCPCS: 99212 ==

== ENCOUNTER 2024-10-19 10:03 | Outpatient (AMB) | payer MEDICARE, SELFPAY ==
[2024-10-19 10:07] VITALS: BP 118/68; PULSE 72; O2SAT 95; BMI 24.7
--- NOTE | 2024-10-19 10:07 | A.OFFPC_ITS ---
Vital Signs 10/19/24 10:07 Height 4 ft 8 in Weight 110 lb BMI 24.7 BP 118/68 Blood Pressure Location Lt brachial Position Sitting Pulse 72 Pulse Source Pulse Oximeter Pulse Oximetry (%) 95 Oxygen Delivery Method Room Air Intake Visit Reasons: 3 mon f/u Allergies Penicillins Allergy (Mild, Verified 10/19/24 10:07) RASH, hives naproxen Adverse Reaction (Unknown, Verified 10/19/24 10:07) GI upset cat dander Allergy (Unknown, Uncoded 09/17/24 11:12) Unknown DUST Allergy (Unknown, Uncoded 09/17/24 11:12) UNKNOWN Medication List - Last Reconciled 10/19/24 by Barron Ravi MD alendronate 70 mg PO QWEEK 90 days wtogvdu-boastcynabmbz-pjzhmbrc 250-250-65 mg (Excedrin Extra Strength) 1 tab PO ONCE PRN cholecalciferol (vitamin D3) 25 mcg PO DAILY gabapentin 300 mg PO TID 90 days levothyroxine 75 mcg PO DAILY 90 days omeprazole 20 mg PO BID ondansetron 8 mg PO ONCE PRN 30 days oxybutynin chloride 5 mg PO Q6H Tobacco use date assessed: 10/19/24 Fall risk assessment: No Falls in past year Last assessed Fall Risk: 10/19/24 Dental Screening Dental Screen Date: 10/19/24 Did you have a dental visit in the last 12 months?: Yes Did you have a dental problem in the last 6 months where you did not have access to dental care?: No Was dental information given to patient?: Patient has dentist HPI 3 mon f/u HPI Details The patient is a 69 year old female presenting with management of chronic conditions including rheumatoid arthritis, osteoporosis, hypothyroidism, gastroesophageal reflux disease, and an overactive bladder. She reports her arthritis symptoms have worsened with the colder weather, noting increased joint discomfort. She continues to use alendronate without adverse effects for osteoporosis management and is on vitamin D supplementation. Her hypothyroidism is managed with levothyroxine at 75 mcg with stable thyroid function tests. She takes omeprazole for GERD and oxybutynin for overactive bladder, both of which she indicates are effective without side effects. Additionally, the patient is prediabetic, with slightly elevated fasting blood glucose noted in past labs from February, though her liver enzymes, cholesterol, kidney function, and anemia tests were normal. Recently, the patient faced gastrointestinal distress related to irritable bowel syndrome, describing the urgency and unpredictability of bowel movements, impacting her daily life and decisions, such as delaying jury duty. Despite these challenges, she has had no recent episodes of nausea requiring medication. Social history Lives in a multi-pet household with two cats and two dogs, occasionally a third dog, necessitating coordinated pet management. - Engages in pet care responsibilities i ncluding feeding and maintaining her household, reflecting an active functional status Labs: Recent labs from February indicate prediabetes with slightly elevated fasting blood glucose. Normal liver enzymes, cholesterol, kidney function, and no anemia were noted. Plan Arthritis: Continue current management and monitor symptoms. Encourage warmth and possible use of joint-supportive measures. - Osteoporosis: Continue alendronate and vitamin D supplementation. Ensure compliance. - Hypothyroidism: Continue levothyroxine 75 mcg. Order follow-up TSH and thyroid function tests. - GERD: Maintain current dosage of omepr azole. Monitor for efficacy and side effects. - Overactive Bladder: Continue oxybutyni n. Reassess if symptoms evolve. - Prediabetes: Recommend repeat labs to monitor fasting glucose levels. Advise lifestyle modifications to manage prediabetes risks. - IBS: Consider gastrointestinal consult if warranted for further management options. Suggest symptomatic management strategies. Patient is instructions Continue all current medications as prescribed for rheumatoid arthritis, osteoporosis, hypothyroidism, GERD, and overactive bladder. - Schedule and complete repeat laborator y tests to monitor fasting glucose and thyroid function. - Maintain a warm environment to allevia te joint discomfort. - Consider Imodium for managing IBS symp toms as needed. - Avoid meals that trigger gastrointesti nal symptoms if feasible. - Follow up in three months and present for lab testing before the next scheduled visit. Discussion I discussed with the patient the current management of her chronic conditions, emphasizing the importance of continued adherence to prescribed medications. We reviewed her medications, confirming that she is tolerating them well without significant side effects. For her prediabetes, I advised repeating lab tests to continuously monitor blood glucose levels and emphasized the role lifestyle changes can play in its management. Regarding her IBS symptoms, I explained the potential chronicity and variability of symptoms she might experience, and discussed possible ways to manage them, including dietary adjustments and use of medications such as Imodium if needed. I assured her that a note could be provided to support her jury duty deferral due to her condition. Lastly, we set a plan for her to complete the blood tests before breakfast on an upcoming weekend, and we agreed on a follow-up in three months to reassess her condition and medication effectiveness. [facility] Medical History Unstable right knee Degeneration, intervertebral disc, cervical Spondylosis of cervical spine Chronic pain syndrome Osteoarthritis of knees, bilateral Muscle cramping Urinary incontinence Osteoarthritis Dyspepsia Other specified hypothyroidism Cervical spondylosis Surgical History History of hernia repair History of esophagogastroduodenoscopy (EGD) History of colonoscopy Lipoma of forearm Anal fistula History of gastric bypass History of tonsillectomy Anal fissure History of section Family History Father CAD (coronary artery disease) Mother HTN (hypertension) Spinal stenosis Dementia Hip fracture Sister No problems noted. Sister No problems noted. Daughter No problems noted. Maternal Grandfather No problems noted. Maternal Grandmother No problems noted. Paternal Grandfather No problems noted. Paternal Grandmother No problems noted. Social History Housing: House Alcohol intake: never Patient Tobacco Use Status: Former Tobacco user Tobacco use type: Cigarette e-Cigarette/Vaping Use: Never Used Second Hand Smoke Exposure: No service: No Current occupational status: retired and disabled Cognitive needs: No Hearing needs: No Vision needs: Yes Questionnaire Thrive Questionnaire Date Thrive assessed: 10/19/24 I am a: Patient What is your living situation today?: I have a steady place to live Within the past 12 months, did the food you bought not last and you didn't have the money to get more?: Never true Within the past 12 months, did you worry whether your food would run out before you got money to buy more?: Never true Do you have trouble paying for medicines?: No Do you have trouble getting transportation to medical appointments?: No Do you have trouble paying your heating and electricity bill?: No Do you have trouble taking care of your child, family member or friend?: No Do you have trouble with day-to-day activities such as bathing, preparing meals, shopping, managing finances, etc.?: No Are you currently unemployed and looking for a job?: No Are you interested in more education?: No Please select the resources that you would like help with: None Currently or been in a relationship where the following occur: No concerns reported THRIVE Score: 0 AUDIT C Alcohol Use Questionnaire (AUDIT-C) 1. How often do you have a drink containing alcohol?: Never 3. How often do you have six or more drinks on one occasion?: Never Total Score: 0 Score Reviewed/Action Taken: Yes TYRONE-7 AMB Questionnaire TYRONE-7 Date TYRONE - 7 assessed: 07/13/24 Source: Developed by Drs. Harley Chapa, Anca Camilo, Ezekiel Gan and colleagues, with an educational omari from [employer]. Review of Systems Const Denies chills and Denies fever(s) ENT Denies epistaxis and Denies nasal discharge Card Denies chest pain Resp Denies chest congestion, Denies cough and Denies hemoptysis GI Denies diarrhea and Denies nausea Skin/Breast Denies rash Neuro Reports no additional complaints Psych Reports no additional complaints Endo Reports no additional complaints Physical exam (Primary Care) Vital Signs: Last Vital Signs Pulse 72 10/19/24 10:07 BP 118/68 10/19/24 10:07 Pulse Ox 95 10/19/24 10:07 Oxygen Delivery Method Room Air 10/19/24 10:07 BMI result Body Mass Index 24.7 Tobacco/Smoking Status: Tobacco use Status Tobacco use date assessed 10/19/24 10/19/24 10:08 Patient Tobacco Use Status Former Tobacco user 10/19/24 10:08 Tobacco use type Cigarette 10/19/24 10:08 e-Cigarette/Vaping Use Never Used 10/19/24 10:08 Thrive Assessment: Date of Thrive Assessment Date Thrive assessed 10/19/24 10/19/24 10:08 Currently or been in a relationship where the following occur: No concerns reported Const General: cooperative, comfortable and no acute distress Orientation/consciousness: patient oriented x3 HENMT Head: Yes normocephalic Eyes General: appearance normal, both eyes and all related structures Neck Neck: Yes supple Resp Effort & Inspection: normal respiratory effort, no cough and no stridor Cardio Rhythm: regular rhythm Heart sounds: S1 normal heart sound present and S2 normal heart sound present Skin General skin exam: turgor normal Neuro General: patient oriented x3, tone normal and moves all extremities Extrem Right lower extremity: no edema Left lower extremity: no edema Coding Level of Care Code Est Pt Level 4 (80067) Complex EM visit Add On G2211 Diagnoses Other specified hypothyroidism E03.8 Irritable bowel syndrome with both constipation and diarrhea K58.2 Irritable bowel syndrome type: with both diarrhea and constipation Dyspepsia R10.13 Stress incontinence of urine N39.3 Urinary Incontinence type: stress incontinence Primary osteoarthritis of both knees M17.0 Osteoarthritis type: primary Chronic pain syndrome G89.4 Spondylosis of cervical spine M47.812 Age-related osteoporosis without current pathological fracture M81.0 Presence of current pathological fracture: without current pathological f racture Impaired fasting blood sugar R73.01 Assessment & Plan Assessment & Plan (1) Other specified hypothyroidism: Code(s): E03.8 - Other specified hypothyroidism Category: Medical (2) IBS (irritable bowel syndrome): Code(s): K58.9 - Irritable bowel syndrome, unspecified Category: Medical Qualifiers: Irritable bowel syndrome type: with both diarrhea and constipation Qualified Code(s): K58.2 - Mixed irritable bowel syndrome (3) Dyspepsia: Code(s): R10.13 - Epigastric pain Category: Medical (4) Urinary incontinence: Code(s): R32 - Unspecified urinary incontinence Category: Medical Qualifiers: Urinary Incontinence type: stress incontinence Qualified Code(s): N39.3 - Stress incontinence (female) (male) (5) Osteoarthritis of knees, bilateral: Code(s): M17.0 - Bilateral primary osteoarthritis of knee Category: Medical Qualifiers: Osteoarthritis type: primary Qualified Code(s): M17.0 - Bilateral primary osteoarthritis of knee (6) Chronic pain syndrome: Code(s): G89.4 - Chronic pain syndrome Category: Medical (7) Spondylosis of cervical spine: Code(s): M47.812 - Spondylosis without myelopathy or radiculopathy, cervical region Category: Medical (8) Age related osteoporosis: Code(s): M81.0 - Age-related osteoporosis without current pathological fracture Category: Medical Qualifiers: Presence of current pathological fracture: without current pathological fracture Qualified Code(s): M81.0 - Age-related osteoporosis without current pathological fracture (9) Impaired fasting blood sugar: Code(s): R73.01 - Impaired fasting glucose Category: Medical Plan The patient is a 69 year old female presenting with management of chronic conditions including rheumatoid arthritis, osteoporosis, hypothyroidism, gastroesophageal reflux disease, and an overactive bladder. She reports her arthritis symptoms have worsened with the colder weather, noting increased joint discomfort. She continues to use alendronate without adverse effects for osteoporosis management and is on vitamin D supplementation. Her hypothyroidism is managed with levothyroxine at 75 mcg with stable thyroid function tests. She takes omeprazole for GERD and oxybutynin for overactive bladder, both of which she indicates are effective without side effects. Additionally, the patient is prediabetic, with slightly elevated fasting blood glucose noted in past labs from February, though her liver enzymes, cholesterol, kidney function, and anemia tests were normal. Recently, the patient faced gastrointestinal distress related to irritable bowel syndrome, describing the urgency and unpredictability of bowel movements, impacting her daily life and decisions, such as delaying jury duty. Despite these challenges, she has had no recent episodes of nausea requiring medication. Social history Lives in a multi-pet household with two cats and two dogs, occasionally a third dog, necessitating coordinated pet management. - Engages in pet care responsibilities including feeding and maintaining her household, reflecting an active functional status Labs: Recent labs from February indicate prediabetes with slightly elevated fasting blood glucose. Normal liver enzymes, cholesterol, kidney function, and no anemia were noted. Plan Arthritis: Continue current management and monitor symptoms. Encourage warmth and possible use of joint-supportive measures. - Osteoporosis: Continue alendronate and vitamin D supplementation. Ensure compliance. - Hypothyroidism: Continue levothyroxine 75 mcg. Order follow-up TSH and thyroid function tests. - GERD: Maintain current dosage of omeprazole. Monitor for efficacy and side effects. - Overactive Bladder: Continue oxybutynin. Reassess if symptoms evolve. - Prediabetes: Recommend repeat labs to monitor fasting glucose levels. Advise lifestyle modifications to manage prediabetes risks. - IBS: Consider gastrointestinal consult if warranted for further management options. Suggest symptomatic management strategies. Patient is instructions Continue all current medications as prescribed for rheumatoid arthritis, osteoporosis, hypothyroidism, GERD, and overactive bladder. - Schedule and complete repeat laboratory tests to monitor fasting glucose and thyroid function. - Maintain a warm environment to alleviate joint discomfort. - Consider Imodium for managing IBS symptoms as needed. - Avoid meals that trigger gastrointestinal symptoms if feasible. - Follow up in three months and present for lab testing before the next scheduled visit. Discussion I discussed with the patient the current management of her chronic conditions, emphasizing the importance of continued adherence to prescribed medications. We reviewed her medications, confirming that she is tolerating them well without significant side effects. For her prediabetes, I advised repeating lab tests to continuously monitor blood glucose levels and emphasized the role lifestyle changes can play in its management. Regarding her IBS symptoms, I explained the potential chronicity and variability of symptoms she might experience, and discussed possible ways to manage them, including dietary adjustments and use of medications such as Imodium if needed. I assured her that a note could be provided to support her jury duty deferral due to her condition. Lastly, we set a plan for her to complete the blood tests before breakfast on an upcoming weekend, and we agreed on a follow-up in three months to reassess her condition and medication effectiveness. Medications: Refilled gabapentin 300 mg PO TID 270 caps 0RF 90 days
== END 2024-10-19 10:38 | disposition home or self-care (01) ==
PROVIDERS: PCP Internal Medicine; Visit Provider Internal Medicine
DX: E03.8 Other specified hypothyroidism (principal); K58.2 Mixed irritable bowel syndrome; R10.13 Epigastric pain; N39.3 Stress incontinence (female) (male); M17.0 Bilateral primary osteoarthritis of knee; G89.4 Chronic pain syndrome; M47.812 Spondylosis without myelopathy or radiculopathy, cervical region; M81.0 Age-related osteoporosis without current pathological fracture; R73.01 Impaired fasting glucose

== ENCOUNTER → 2024-10-19 10:03 | Outpatient (BNVA) | payer MEDICARE, SELFPAY | PROVIDERS: PCP Internal Medicine; Visit Provider Internal Medicine | DX: E03.8 Other specified hypothyroidism (principal); K58.2 Mixed irritable bowel syndrome; R10.13 Epigastric pain; N39.3 Stress incontinence (female) (male); M17.0 Bilateral primary osteoarthritis of knee; G89.4 Chronic pain syndrome | CPT/HCPCS: 99212 ==

== ENCOUNTER 2024-10-20 09:15 | Outpatient (REF) | payer MEDICARE, SELFPAY ==
[2024-10-20 10:00] LABS: MANUAL DIFF FLAG NO
[2024-10-20 10:06] LABS: Basophils Percent Auto 0.6 % (0-2); Eosinophils Absolute Auto 0.1 X10*3/uL (0.0-0.4); Eosinophils Percent Auto 1.9 % (0-4); Hematocrit 40.5 % (37.0-47.0); Imm Gran Abs Auto 0.02 X10*3/uL (0.00-0.03); Imm Gran Pct Auto 0.3 % (0.0-0.4); Lymphocytes Absolute Auto 2.3 X10*3/uL (1.2-4.9); Lymphocytes Percent Auto 33.6 % (20-40); Mean Corpuscular HGB Conc 32.1 g/dl (31.0-35.0); Mean Corpuscular Hemoglobin 31.3 pg (27.0-33.0); Mean Corpuscular Volume 97.6 fL (80.0-98.0); Mean Platelet Volume 10.3 fL (9.4-12.3); Monocytes Absolute Auto 0.8 X10*3/uL (0.1-1.2); Monocytes Percent Auto 11.1 % (2-11); Neutrophils Absolute Auto 3.5 x10*3/uL (2.0-8.3); Neutrophils Percent Auto 52.5 % (45-73); Platelet Count 269 X10*3/uL (160-400); Red Blood Count 4.15 X10*6/uL (4.20-5.50); Red Cell Distribution Width 14.1 % (11.0-16.0); White Blood Count 6.7 X10*3/uL (4.8-10.8)
[2024-10-20 10:10] LABS: Estimated Average Glucose 100 mg/dL; Hemoglobin A1C 109.6573 umol/L; Hemoglobin A1c % 5.1 % (<6.0); Total Hemoglobin (HGBA1C) 3351.2405 umol/L
[2024-10-20 10:29] LABS: Alanine Aminotransferase 16 U/L (0-31); Albumin Level 4.1 g/dL (3.5-5.0); Alkaline Phosphatase 70 U/L (39-117); Anion Gap 12 (12-20); Aspartate Amino Transferase 25 U/L (5-31); Bilirubin Total 0.7 mg/dL (0.0-1.0); Blood Urea Nitrogen 18 mg/dL (9-16); Calcium 9.5 mg/dL (8.4-10.2); Carbon Dioxide 28 mmol/L (22-29); Chloride 105 mmol/L (96-108); Estimated Glomerular Filt Rate > 60; Glucose Fasting 96 mg/dL (60-99); Potassium 3.9 mmol/L (3.3-5.1); Sodium 141 mmol/L (135-145); Total Protein 6.6 g/dL (6.5-8.0)
[2024-10-20 10:45] LABS: TSH reflex Free T4 2.33 uIU/mL (0.32-4.0)
== END 2024-10-20 09:16 | disposition home or self-care (01) ==
LOC: HO.HMGCLDS 09:15
PROVIDERS: PCP Internal Medicine; Visit Provider Internal Medicine
DX: F32.0 Major depressive disorder, single episode, mild (principal); Z98.84 Bariatric surgery status; K58.2 Mixed irritable bowel syndrome; M81.0 Age-related osteoporosis without current pathological fracture; G89.4 Chronic pain syndrome; M17.0 Bilateral primary osteoarthritis of knee; M47.812 Spondylosis without myelopathy or radiculopathy, cervical region; M54.2 Cervicalgia; M12.9 Arthropathy, unspecified; R73.01 Impaired fasting glucose
CPT/HCPCS: 36415; 80053; 83036; 84443; 85025

== ENCOUNTER 2025-01-25 10:03 | Outpatient (AMB) | payer MEDICARE, SELFPAY ==
[2025-01-25 10:14] VITALS: BP 110/68; PULSE 56; O2SAT 96; BMI 25.2
--- NOTE | 2025-01-25 10:14 | A.OFFPC_ITS ---
Vital Signs 01/25/25 10:14 Height 4 ft 8 in Weight 112 lb 4 oz BMI 25.2 BP 110/68 Blood Pressure Location Rt brachial Position Sitting Pulse 56 Pulse Source Pulse Oximeter Pulse Oximetry (%) 96 Oxygen Delivery Method Room Air Intake Visit Reasons: 3 months follow up Allergies Penicillins Allergy (Mild, Verified 01/25/25 10:16) RASH, hives naproxen Adverse Reaction (Unknown, Verified 01/25/25 10:16) GI upset cat dander Allergy (Unknown, Uncoded 09/17/24 11:12) Unknown DUST Allergy (Unknown, Uncoded 09/17/24 11:12) UNKNOWN Medication List - Last Reconciled 01/25/25 by Barron Ravi MD alendronate 70 mg PO QWEEK 90 days bxbomnf-yjbyscgauregn-tjpyvgvg 250-250-65 mg (Excedrin Extra Strength) 1 tab PO ONCE PRN cholecalciferol (vitamin D3) 25 mcg PO DAILY gabapentin 300 mg PO TID 90 days levothyroxine 75 mcg PO DAILY 90 days omeprazole 20 mg PO BID ondansetron 8 mg PO ONCE PRN 30 days oxybutynin chloride 5 mg PO Q6H Tobacco use date assessed: 01/25/25 Fall risk assessment: No Falls in past year Last assessed Fall Risk: 01/25/25 Dental Screening Dental Screen Date: 01/25/25 Did you have a dental visit in the last 12 months?: Yes Did you have a dental problem in the last 6 months where you did not have access to dental care?: No Was dental information given to patient?: Patient has dentist HPI 3 months follow up HPI Details Regular follow-up appointment - The patient is a 69-year-old female pr esenting with joint pain in the hand. - The hand pain began at the end of after turning an object, with subsequent shooting pain in two fingers and the hand. - The pain impairs daily functions such as opening containers, requiring support or adaptive strategies to manage. - Notable dryness and cracking of skin o n hands, likely from frequent hand washing possibly exacerbated by the nature of home renovation tasks . - Osteoporosis is being managed with Jackelyn ndronate, hypothyroidism with Levothyroxine, and GERD with Omeprazole. Migraines occur infrequently, on Fioricet through neurology - Issues with urinary frequency despite Oxybutynin treatment. Renovating house so it can be sold and is assisting her daughter with pending of caal It discuss that possibility of aggravating her joint stiffness and pain and I would not advise that. Continued to have diarrhea secondary to IBS off and on Problem List - Osteoporosis - Migraine - Joint Pain: Hand - Dry and Cracked Skin - Gastroesophageal Reflux Disease (GERD) - Hypothyroidism - Urinary Frequency - Nausea - Neck Pain Patient Instructions - Consider seeing a hand specialist if j oint pain in the hand continues to interfere with daily functions. - Consider using hand protection for tas ks related to home renovation to minimize skin deterioration. - Continue prescribed medications per [facility] and report any adverse effects. - Minimize engaging in physically demand ing tasks without appropriate rest and precautions. Review of Systems - General: No fever no chills - Neurological: No headaches no dizziness - Ear nose throat: No sore throat no hearing difficulty no ear pain - Cardiovascular: No syncope, no chest pain, no palpitations - Gastrointestinal: No nausea vomiting or diarrhea - Endocrine: No polyuria polydipsia no heat intolerance - Genitourinary: No dysuria , no blood in urine Physical Exam General: No acute distress HEENT: No acute findings Neck: Supple, still having trouble with one spot that comes and goes Respiratory system: Able to talk in full sentences, no audible wheeze cardiovascular: S1-S2 regular in rate and rhythm Gastrointestinal: No pain Extremities: Cracking, splitting, and pain in hands, especially when turning objects 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 x3 motor sensory intact Skin: Normal turgor, dryness and cracking in hands due to washing dishes without gloves PFSH Medical History Unstable right knee Degeneration, intervertebral disc, cervical Spondylosis of cervical spine Chronic pain syndrome Osteoarthritis of knees, bilateral Muscle cramping Urinary incontinence Osteoarthritis Dyspepsia Other specified hypothyroidism Cervical spondylosis Surgical History History of hernia repair History of esophagogastroduodenoscopy (EGD) History of colonoscopy Lipoma of forearm Anal fistula History of gastric bypass History of tonsillectomy Anal fissure History of section Family History Father CAD (coronary artery disease) Mother HTN (hypertension) Spinal stenosis Dementia Hip fracture Sister No problems noted. Sister No problems noted. Daughter No problems noted. Maternal Grandfather No problems noted. Maternal Grandmother No problems noted. Paternal Grandfather No problems noted. Paternal Grandmother No problems noted. Social History Housing: House Alcohol intake: never Patient Tobacco Use Status: Former Tobacco user Tobacco use type: Cigarette e-Cigarette/Vaping Use: Never Used Second Hand Smoke Exposure: No service: No Current occupational status: retired and disabled Cognitive needs: No Hearing needs: No Vision needs: Yes Questionnaire PHQ-9 Over the last 2 weeks, how often have you been bothered by any of the following problems? 1. Little interest or pleasure in doing things: not at all 2. Feeling down, depressed, or hopeless: not at all 3. Trouble falling or staying asleep, or sleeping too much: not at all 4. Feeling tired or having little energy: several days 5. Poor appetite or overeating: not at all 6. Feeling bad about yourself - or that you are a failure or have let yourself or your family down: not at all 7. Trouble concentrating on things, such as reading the newspaper or watching television: not at all 8. Moving or speaking so slowly that other people could have noticed. Or the opposite - being so fidgety or restless that you have been moving around a lot more than usual: not at all 9. Thoughts that you would be better off or of hurting yourself in some way: not at all Total score: 1 Depression Screening Interpretation: Negative Depression Screening Done: Yes 81818 - PHQ-9 Billing: Yes Source: Developed by Drs. Harley Chapa, Anca Camilo, Ezekiel Gan and colleagues, with an educational omari from [employer] Thrive Questionnaire Date Thrive assessed: 01/25/25 I am a: Patient What is your living situation today?: I have a steady place to live Within the past 12 months, did the food you bought not last and you didn't have the money to get more?: Never true Within the past 12 months, did you worry whether your food would run out before you got money to buy more?: Never true Do you have trouble paying for medicines?: I choose not to answer this question Do you have trouble getting transportation to medical appointments?: No Do you have trouble paying your heating and electricity bill?: No Do you have trouble taking care of your child, family member or friend?: No Do you have trouble with day-to-day activities such as bathing, preparing meals, shopping, managing finances, etc.?: No Are you currently unemployed and looking for a job?: No Are you interested in more education?: No Please select the resources that you would like help with: Paying for medicine Currently or been in a relationship where the following occur: No concerns reported THRIVE Score: 0 AUDIT C Alcohol Use Questionnaire (AUDIT-C) 1. How often do you have a drink containing alcohol?: Never 3. How often do you have six or more drinks on one occasion?: Never Total Score: 0 Score Reviewed/Action Taken: Yes TYRONE-7 AMB Questionnaire TYRONE-7 Date TYRONE - 7 assessed: 01/25/25 Feeling nervous, anxious, or on edge: 0 = Not at all Not being able to stop or control worryin = Not at all Worrying too much about different things: 0 = Not at all Trouble relaxin = Not at all Being so restless that it is hard to sit still: 0 = Not at all Becoming easily annoyed or irritable: 0 = Not at all Feeling afraid as if something awful might happen: 0 = Not at all Total TYRONE-7 score (0-4 normal; 5-9 mild; 10-14 moderate; 15-21 severe): 0 Source: Developed by Drs. Harley Chapa, Anca Camilo, Ezekiel Gan and colleagues, with an educational omari from [employer] TYRONE-7 Assessment Billing TYRONE-7 Assessment Tool: TYRONE-7 Assessment [id number] Physical exam (Primary Care) Vital Signs: Last Vital Signs Pulse 56 01/25/25 10:14 BP 110/68 01/25/25 10:14 Pulse Ox 96 01/25/25 10:14 Oxygen Delivery Method Room Air 01/25/25 10:14 BMI result Body Mass Index 25.2 Tobacco/Smoking Status: Tobacco use Status Tobacco use date assessed 01/25/25 01/25/25 10:17 Patient Tobacco Use Status Former Tobacco user 01/25/25 10:14 Tobacco use type Cigarette 01/25/25 10:14 e-Cigarette/Vaping Use Never Used 01/25/25 10:14 PHQ-9: PHQ-9 Score PHQ-9: Total score 1 01/25/25 10:17 Depression Screening Interpretation: Negative Thrive Assessment: Date of Thrive Assessment Date Thrive assessed 01/25/25 01/25/25 10:17 Currently or been in a relationship where the following occur: No concerns reported Coding Level of Care Code Est Pt Level 4 (14909) Complex EM visit Add On G2211 Diagnoses Other specified hypothyroidism E03.8 Irritable bowel syndrome with both constipation and diarrhea K58.2 Irritable bowel syndrome type: with both diarrhea and constipation Dyspepsia R10.13 Stress incontinence of urine N39.3 Urinary Incontinence type: stress incontinence Primary osteoarthritis of both knees M17.0 Osteoarthritis type: primary Chronic pain syndrome G89.4 Spondylosis of cervical spine M47.812 Age-related osteoporosis without current pathological fracture M81.0 Presence of current pathological fracture: without current pathological fracture Impaired fasting blood sugar R73.01 Additional Codes TYRONE-7 Assessment Billing - TYRONE-7 Assessment Tool: TYRONE-7 Assessment [id number] ([id number]) PHQ-9 - 73472 - PHQ-9 Billing: Yes ([id number]) Assessment & Plan Assessment & Plan (1) Other specified hypothyroidism: Code(s): E03.8 - Other specified hypothyroidism Category: Medical (2) IBS (irritable bowel syndrome): Code(s): K58.9 - Irritable bowel syndrome, unspecified Category: Medical Qualifiers: Irritable bowel syndrome type: with both diarrhea and constipation Qualified Code(s): K58.2 - Mixed irritable bowel syndrome (3) Dyspepsia: Code(s): R10.13 - Epigastric pain Category: Medical (4) Urinary incontinence: Code(s): R32 - Unspecified urinary incontinence Category: Medical Qualifiers: Urinary Incontinence type: stress incontinence Qualified Code(s): N39.3 - Stress incontinence (female) (male) (5) Osteoarthritis of knees, bilateral: Code(s): M17.0 - Bilateral primary osteoarthritis of knee Category: Medical Qualifiers: Osteoarthritis type: primary Qualified Code(s): M17.0 - Bilateral primary osteoarthritis of knee (6) Chronic pain syndrome: Code(s): G89.4 - Chronic pain syndrome Category: Medical (7) Spondylosis of cervical spine: Code(s): M47.812 - Spondylosis without myelopathy or radiculopathy, cervical region Category: Medical (8) Age related osteoporosis: Code(s): M81.0 - Age-related osteoporosis without current pathological fracture Category: Medical Qualifiers: Presence of current pathological fracture: without current pathological fracture Qualified Code(s): M81.0 - Age-related osteoporosis without current pathological fracture (9) Impaired fasting blood sugar: Code(s): R73.01 - Impaired fasting glucose Category: Medical Plan Regular follow-up appointment - The patient is a 69-year-old female presenting with joint pain in the hand. - The hand pain began at the end of November after turning an object, with subsequent shooting pain in two fingers and the hand. - The pain impairs daily functions such as opening containers, requiring support or adaptive strategies to manage. - Notable dryness and cracking of skin on hands, likely from frequent hand washing possibly exacerbated by the nature of home renovation tasks . - Osteoporosis is being managed with Alendronate, hypothyroidism with Levothyroxine, and GERD with Omeprazole. Migraines occur infrequently, on Fioricet through neurology - Issues with urinary frequency despite Oxybutynin treatment. Renovating house so it can be sold and is assisting her daughter with pending of caal It discuss that possibility of aggravating her joint stiffness and pain and I would not advise that. Continued to have diarrhea secondary to IBS off and on Problem List - Osteoporosis - Migraine - Joint Pain: Hand - Dry and Cracked Skin - Gastroesophageal Reflux Disease (GERD) - Hypothyroidism - Urinary Frequency - Nausea - Neck Pain Patient Instructions - Consider seeing a hand specialist if joint pain in the hand continues to interfere with daily functions. - Consider using hand protection for tasks related to home renovation to minimize skin deterioration. - Continue prescribed medications per schedule and report any adverse effects. - Minimize engaging in physically demanding tasks without appropriate rest and precautions. Orders: Orders Comprehensive [place]. Panel Fast 3 Months E03.8 - Other specified hypothyroidism, G89.4 - Chronic pain syndrome, K58.2 - Mixed irritable bowel syndrome, M17.0 - Bilateral primary osteoarthritis of knee, M47.812 - Spondylosis without myelopathy or radiculopathy, cervical region, M81.0 - Age-related osteoporosis without current pathological fracture, N39.3 - Stress incontinence (female) (male), R10.13 - Epigastric pain Lipid Panel 3 Months E03.8 - Other specified hypothyroidism, G89.4 - Chronic pain syndrome, K58.2 - Mixed irritable bowel syndrome, M17.0 - Bilateral primary osteoarthritis of knee, M47.812 - Spondylosis without myelopathy or radiculopathy, cervical region, M81.0 - Age-related osteoporosis without current pathological fracture, N39.3 - Stress incontinence (female) (male), R10.13 - Epigastric pain TSH reflex Free T4 3 Months E03.8 - Other specified hypothyroidism, G89.4 - Chronic pain syndrome, K58.2 - Mixed irritable bowel syndrome, M17.0 - Bilateral primary osteoarthritis of knee, M47.812 - Spondylosis without myelopathy or radiculopathy, cervical region, M81.0 - Age-related osteoporosis without current pathological fracture, N39.3 - Stress incontinence (female) (male), R10.13 - Epigastric pain Complete Blood Count Auto Diff 3 Months E03.8 - Other specified hypothyroidism, G89.4 - Chronic pain syndrome, K58.2 - Mixed irritable bowel syndrome, M17.0 - Bilateral primary osteoarthritis of knee, M47.812 - Spondylosis without myelopathy or radiculopathy, cervical region, M81.0 - Age-related osteoporosis without current pathological fracture, N39.3 - Stress incontinence (female) (male), R10.13 - Epigastric pain Medications: Refilled gabapentin 300 mg PO TID 90 days 270 caps 0RF
== END 2025-01-25 10:52 | disposition home or self-care (01) ==
PROVIDERS: PCP Internal Medicine; Visit Provider Internal Medicine
DX: E03.8 Other specified hypothyroidism (principal); K58.2 Mixed irritable bowel syndrome; R10.13 Epigastric pain; N39.3 Stress incontinence (female) (male); M17.0 Bilateral primary osteoarthritis of knee; G89.4 Chronic pain syndrome; M47.812 Spondylosis without myelopathy or radiculopathy, cervical region; M81.0 Age-related osteoporosis without current pathological fracture; R73.01 Impaired fasting glucose

== ENCOUNTER → 2025-01-25 10:03 | Outpatient (BNVA) | payer MEDICARE, SELFPAY | PROVIDERS: PCP Internal Medicine; Visit Provider Internal Medicine | DX: E03.8 Other specified hypothyroidism (principal); R10.13 Epigastric pain; K58.2 Mixed irritable bowel syndrome; N39.3 Stress incontinence (female) (male); M17.0 Bilateral primary osteoarthritis of knee; G89.4 Chronic pain syndrome; M47.812 Spondylosis without myelopathy or radiculopathy, cervical region; M81.0 Age-related osteoporosis without current pathological fracture; R73.01 Impaired fasting glucose | CPT/HCPCS: 96127; 99212 ==

== ENCOUNTER 2025-04-07 11:57 | Outpatient (AMB) | payer MEDICARE, SELFPAY ==
--- NOTE | 2025-04-07 12:11 | AM.OFFWIN_ITS ---
Intake Vital Signs 04/07/25 12:13 Height 4 ft 8 in Weight 109 lb BMI 24.4 BP 108/70 Blood Pressure Location Rt brachial Pulse 83 Pulse Source Pulse Oximeter Temp 98.2 F Temp Source Oral Pulse Oximetry (%) 96 Oxygen Delivery Method Room Air Intake Visit Reasons: EP Diarrhea 5 days Intake Note: Patient here for diarrhea that has been present for 5 days. Patient Tobacco Use Status: Former Tobacco user Allergies Penicillins Allergy (Mild, Verified 04/07/25 12:15) RASH, hives naproxen Adverse Reaction (Unknown, Verified 04/07/25 12:15) GI upset cat dander Allergy (Unknown, Uncoded 04/07/25 12:15) Unknown DUST Allergy (Unknown, Uncoded 04/07/25 12:15) UNKNOWN Medication List - Last Reconciled 04/07/25 by Barron Ravi MD alendronate 70 mg PO QWEEK 90 days aeamzli-xkxthtlxvbegs-jmppsraf 250-250-65 mg (Excedrin Extra Strength) 1 tab PO ONCE PRN cholecalciferol (vitamin D3) 25 mcg PO DAILY gabapentin 300 mg PO TID 90 days levothyroxine 75 mcg PO DAILY 90 days omeprazole 20 mg PO BID ondansetron 8 mg PO ONCE PRN 30 days oxybutynin chloride 5 mg PO Q6H Do you need a note to return to daycare/school/sports/work: No HPI EP Diarrhea 5 days HPI Details History - The patient is a 69-year-old female pr esenting with diarrhea. - The diarrhea started five days ago and has been ongoing. - The patient reports that this episode is different from a previous episode of black, foul-smelling stools, which was accompanied by fever and chills. - The patient has experienced diarrhea a pproximately every 15 minutes. - She attempted treatment with Imodium A D, taking four tablets on the first day and switching to Pepto Bismol on the second day, which turned her stools black. - She reports abdominal cramping associa baldo with the need to defecate but denies nausea, vomiting, fever, or chills. - The patient reported previous exposure to contaminated food leading to diarrhea, with history of possible CDC involvement. - She denies recent antibiotic use. - She reports consuming Pedialyte or Gat orade and bland foods such as saltines and bananas to manage her symptoms and maintain hydration. Problem List - Diarrhea Patient Instructions - Increase fluid intake with Pedialyte o r Gatorade to prevent dehydration. - Discontinue the use of Imodium for prachi rrhea management. - we need further stool testing as direc baldo. - Maintain a simple diet while symptoms persist, incorporating bland foods. - Monitor for any additional symptoms li ke fever or chills and seek care if these occur. Review of Systems - General: No fever no chills - Neurological: No headaches no dizziness - Ear nose throat: No sore throat no hearing difficulty no ear pain - Cardiovascular: No syncope, no chest pain, no palpitations - Gastrointestinal: No nausea vomiting - Endocrine: No polyuria polydipsia no heat intolerance - Genitourinary: No dysuria , no blood in urine Physical Exam General: No acute distress HEENT: No acute findings Neck: Supple Respiratory system: Able to talk in full sentences, no audible wheeze Gastrointestinal: No pain, abdomine is soft, BS +, but experiencing diarrhea and cramps when needing to go Extremities: No new findings 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 x3 motor sensory intact Skin: Normal turgor, but soreness and inflammation noted in the groin area due to straining [facility] Medical History Unstable right knee Degeneration, intervertebral disc, cervical Spondylosis of cervical spine Chronic pain syndrome Osteoarthritis of knees, bilateral Muscle cramping Urinary incontinence Osteoarthritis Dyspepsia Other specified hypothyroidism Cervical spondylosis Surgical History History of hernia repair History of esophagogastroduodenoscopy (EGD) History of colonoscopy Lipoma of forearm Anal fistula History of gastric bypass History of tonsillectomy Anal fissure History of section Family History Father CAD (coronary artery disease) Mother HTN (hypertension) Spinal stenosis Dementia Hip fracture Sister No problems noted. Sister No problems noted. Daughter No problems noted. Maternal Grandfather No problems noted. Maternal Grandmother No problems noted. Paternal Grandfather No problems noted. Paternal Grandmother No problems noted. Social History Housing: House Alcohol intake: never Patient Tobacco Use Status: Former Tobacco user Tobacco use type: Cigarette e-Cigarette/Vaping Use: Never Used Second Hand Smoke Exposure: No service: No Current occupational status: retired and disabled Cognitive needs: No Hearing needs: No Vision needs: Yes Physical Exam Vital Signs: Last Vital Signs Temp 98.2 F 04/07/25 12:13 Pulse 83 04/07/25 12:13 BP 108/70 04/07/25 12:13 Pulse Ox 96 04/07/25 12:13 Oxygen Delivery Method Room Air 04/07/25 12:13 BMI result Body Mass Index 24.4 Assessment & Plan Assessment & Plan (1) Diarrhea: Code(s): R19.7 - Diarrhea, unspecified Qualifiers: Diarrhea type: unspecified type Qualified Code(s): R19.7 - Diarrhea, unspecified (2) Enteritis: Code(s): K52.9 - Noninfective gastroenteritis and colitis, unspecified (3) Abdominal cramping in left lower quadrant: Code(s): R10.32 - Left lower quadrant pain Plan History - The patient is a 69-year-old female presenting with diarrhea. - The diarrhea started five days ago and has been ongoing. - The patient reports that this episode is different from a previous episode of black, foul-smelling stools, which was accompanied by fever and chills. - The patient has experienced diarrhea approximately every 15 minutes. - She attempted treatment with Imodium AD, taking four tablets on the first day and switching to Pepto Bismol on the second day, which turned her stools black. - She reports abdominal cramping associated with the need to defecate but denies nausea, vomiting, fever, or chills. - The patient reported previous exposure to contaminated food leading to diarrhea, with history of possible CDC involvement. - She denies recent antibiotic use. - She reports consuming Pedialyte or Gatorade and bland foods such as saltines and bananas to manage her symptoms and maintain hydration. Problem List - Diarrhea Patient Instructions - Increase fluid intake with Pedialyte or Gatorade to prevent dehydration. - Discontinue the use of Imodium for diarrhea management. - we need further stool testing as directed. - Maintain a simple diet while symptoms persist, incorporating bland foods. - Monitor for any additional symptoms like fever or chills and seek care if these occur. Orders: Orders CDiff Gene PCR Today R19.7 - Diarrhea, unspecified Leukocytes Stool Qualitative Today R19.7 - Diarrhea, unspecified Cyclospora & Isospora Stool Today R19.7 - Diarrhea, unspecified GI Panel Today R19.7 - Diarrhea, unspecified Coding Level of Care Code Est Pt Level 4 (86198) Diagnoses Diarrhea, unspecified type R19.7 Diarrhea type: unspecified type Enteritis K52.9 Abdominal cramping in left lower quadrant R10.32
[2025-04-07 12:13] VITALS: BP 108/70; PULSE 83; TEMP 36.8; O2SAT 96; BMI 24.4
== END 2025-04-07 12:43 | disposition home or self-care (01) ==
PROVIDERS: PCP Internal Medicine; Visit Provider Internal Medicine
DX: K52.9 Noninfective gastroenteritis and colitis, unspecified (principal); R10.32 Left lower quadrant pain

== ENCOUNTER → 2025-04-07 11:57 | Outpatient (BNVA) | payer MEDICARE, SELFPAY | PROVIDERS: PCP Internal Medicine; Visit Provider Internal Medicine | DX: K52.9 Noninfective gastroenteritis and colitis, unspecified (principal); R10.32 Left lower quadrant pain | CPT/HCPCS: 99212 ==

== ENCOUNTER 2025-04-08 06:15 | Outpatient (REF) | payer MEDICARE, SELFPAY ==
[2025-04-08 13:28] LABS: Adenovirus F 40/41 Not Detected (Not Detect.); Astrovirus Not Detected (Not Detect.); Campylobacter Not Detected (Not Detect.); Cryptosporidium Not Detected (Not Detect.); Cyclospora cayetanensis Not Detected (Not Detect.); E. coli EAEC Not Detected (Not Detect.); E. coli EPEC Not Detected (Not Detect.); E. coli ETEC Not Detected (Not Detect.); E. coli STEC Not Detected (Not Detect.); Entamoeba histolytica Not Detected (Not Detect.); Giardia lamblia Not Detected (Not Detect.); Norovirus GI/GII Not Detected (Not Detect.); Plesiomonas shigelloides Not Detected (Not Detect.); Rotavirus A Not Detected (Not Detect.); Salmonella Not Detected (Not Detect.); Sapovirus Not Detected (Not Detect.); Shigella sp./EIEC Not Detected (Not Detect.); Vibrio Not Detected (Not Detect.); Vibrio Cholerae Not Detected (Not Detect.); Yersinia enterocolitica Not Detected (Not Detect.)
[2025-04-08 15:06] LABS: Leukocytes Stool Qualitative FEW: < 2/OIF (NEGATIVE)
[2025-04-08 15:57] LABS: CDiff Gene PCR POSITIVE (Negative)
[2025-04-08 16:07] LABS: CDiff Toxin Positive (Negative)
[2025-04-08 16:08] LABS: CDIFF Internal ctrl Dots and bkg OK (V)
== END 2025-04-08 06:16 | disposition home or self-care (01) ==
LOC: HO.HMGCLNP 06:15
PROVIDERS: PCP Internal Medicine; Visit Provider Internal Medicine
DX: R19.7 Diarrhea, unspecified (principal)
CPT/HCPCS: 87015; 87207; 87324; 87493; 87507; 89055

== ENCOUNTER 2025-04-13 08:16 | Outpatient (AMB) | payer MEDICARE, SELFPAY ==
--- NOTE | 2025-04-13 08:37 | MHC.PC.OV ---
Intake Visit Reasons: F/up Results Allergies Penicillins Allergy (Mild, Verified 04/13/25 08:37) RASH, hives naproxen Adverse Reaction (Unknown, Verified 04/13/25 08:37) GI upset cat dander Allergy (Unknown, Uncoded 04/13/25 08:37) Unknown DUST Allergy (Unknown, Uncoded 04/13/25 08:37) UNKNOWN Medication List - Last Reconciled 04/13/25 by Barron Ravi MD alendronate 70 mg PO QWEEK 90 days [id number]-wfymflcsznijh-ehiuarwo 250-250-65 mg (Excedrin Extra Strength) 1 tab PO ONCE PRN cholecalciferol (vitamin D3) 25 mcg PO DAILY gabapentin 300 mg PO TID 90 days levothyroxine 75 mcg PO DAILY 90 days omeprazole 20 mg PO BID ondansetron 8 mg PO ONCE PRN 30 days oxybutynin chloride 5 mg PO Q6H vancomycin 125 mg PO QID 7 days Tobacco use date assessed: 04/13/25 Fall risk assessment: No Falls in past year Last assessed Fall Risk: 04/13/25 Dental Screening Dental Screen Date: 04/13/25 Did you have a dental visit in the last 12 months?: Yes Did you have a dental problem in the last 6 months where you did not have access to dental care?: No Was dental information given to patient?: Patient has dentist HPI F/up Results HPI Details History - The patient is a 69-year-old female presenting with Clostridium difficile infection. - She reported experiencing cramping and soft stools but has not taken any antibiotics prior to the onset of symptoms. - Symptoms persisted, leading to the initiation of vancomycin treatment. - she is feeling much better, we will repeat the test after antibiotics are done Problem List - Clostridium difficile infection Patient Instructions - Complete the prescribed course of vancomycin. - Begin taking probiotics and consume yogurt to aid in gut nidia recovery. - Plan to obtain blood work a day before the scheduled appointment on the . - Collect a stool sample at home and return it within two hours for testing. - Schedule to pickle water pump operator a stool sample container a few days before the blood test. - Monitor symptoms and report if diarrhea persists. - Follow up as planned at the end of the month. Review of Systems - General: No fever no chills - Neurological: No headaches no dizziness - Ear nose throat: No sore throat no hearing difficulty no ear pain - Cardiovascular: No syncope, no chest pain, no palpitations - Gastrointestinal: No nausea vomiting [facility] Medical History Unstable right knee Degeneration, intervertebral disc, cervical Spondylosis of cervical spine Chronic pain syndrome Osteoarthritis of knees, bilateral Muscle cramping Urinary incontinence Osteoarthritis Dyspepsia Other specified hypothyroidism Cervical spondylosis Surgical History History of hernia repair History of esophagogastroduodenoscopy (EGD) History of colonoscopy Lipoma of forearm Anal fistula History of gastric bypass History of tonsillectomy Anal fissure History of section Family History Father CAD (coronary artery disease) Mother HTN (hypertension) Spinal stenosis Dementia Hip fracture Sister No problems noted. Sister No problems noted. Daughter No problems noted. Maternal Grandfather No problems noted. Maternal Grandmother No problems noted. Paternal Grandfather No problems noted. Paternal Grandmother No problems noted. Social History Housing: House Alcohol intake: never Patient Tobacco Use Status: Former Tobacco user Tobacco use type: Cigarette e-Cigarette/Vaping Use: Never Used Second Hand Smoke Exposure: No service: No Current occupational status: retired and disabled Cognitive needs: No Hearing needs: No Vision needs: Yes Questionnaire Thrive Questionnaire Date Thrive assessed: 01/25/25 AUDIT C Alcohol Use Questionnaire (AUDIT-C) 1. How often do you have a drink containing alcohol?: Never 3. How often do you have six or more drinks on one occasion?: Never Total Score: 0 Score Reviewed/Action Taken: Yes TYRONE-7 AMB Questionnaire TYRONE-7 Date TYRONE - 7 assessed: 01/25/25 Source: Developed by Drs. Harley Chapa, Anca Camilo, Ezekiel Gan and colleagues, with an educational omari from [employer]. Physical exam (Primary Care) Tobacco/Smoking Status: Tobacco use Status Tobacco use date assessed 04/13/25 04/13/25 08:38 Patient Tobacco Use Status Former Tobacco user 04/13/25 08:38 Tobacco use type Cigarette 04/13/25 08:38 e-Cigarette/Vaping Use Never Used 04/13/25 08:38 Thrive Assessment: Date of Thrive Assessment Date Thrive assessed 01/25/25 04/13/25 08:38 Coding Level of Care Code Tele Est Pt Level 3 (54073) Diagnoses C. difficile diarrhea A04.72 Assessment & Plan Assessment & Plan (1) C. difficile diarrhea: Code(s): A04.72 - Enterocolitis due to Clostridium difficile, not specified as recurrent Category: Medical Plan History - The patient is a 69-year-old female presenting with Clostridium difficile infection. - She reported experiencing cramping and soft stools but has not taken any antibiotics prior to the onset of symptoms. - Symptoms persisted, leading to the initiation of vancomycin treatment. - she is feeling much better, we will repeat the test after antibiotics are done Problem List - Clostridium difficile infection Patient Instructions - Complete the prescribed course of vancomycin. - Begin taking probiotics and consume yogurt to aid in gut nidia recovery. - Plan to obtain blood work a day before the scheduled appointment on the . - Collect a stool sample at home and return it within two hours for testing. - Schedule to pickle water pump operator a stool sample container a few days before the blood test. - Monitor symptoms and report if diarrhea persists. - Follow up as planned at the end of the month. Orders: Orders CDiff Gene PCR Today A04.72 - Enterocolitis due to Clostridium difficile, not specified as recurrent Medications: New Lactobacillus acidophilus (Probiotic Gold Acidophilus) 1,000 mmu cells PO DAILY 90 caps 0RF
== END 2025-04-13 09:45 | disposition home or self-care (01) ==
LOC: HO.HMCC 08:17
PROVIDERS: PCP Internal Medicine; Visit Provider Internal Medicine
DX: A04.72 Enterocolitis due to Clostridium difficile, not specified as recurrent (principal)

== ENCOUNTER → 2025-04-13 08:16 | Outpatient (BNVA) | payer MEDICARE, SELFPAY | PROVIDERS: PCP Internal Medicine; Visit Provider Internal Medicine ==

== ENCOUNTER 2025-04-20 08:33 | Outpatient (REF) | payer MEDICARE, SELFPAY ==
[2025-04-20 10:16] LABS: MANUAL DIFF FLAG NO
[2025-04-20 10:22] LABS: Basophils Absolute Auto 0.1 X10*3/uL (0.0-0.2); Basophils Percent Auto 0.8 % (0-2); Eosinophils Percent Auto 0.6 % (0-4); Hematocrit 41.4 % (37.0-47.0); Hemoglobin 13.1 g/dl (12.0-16.0); Imm Gran Abs Auto 0.04 X10*3/uL (0.00-0.03); Imm Gran Pct Auto 0.6 % (0.0-0.4); Lymphocytes Percent Auto 29.6 % (20-40); Mean Corpuscular HGB Conc 31.6 g/dl (31.0-35.0); Mean Corpuscular Hemoglobin 30.9 pg (27.0-33.0); Mean Corpuscular Volume 97.6 fL (80.0-98.0); Mean Platelet Volume 10.1 fL (9.4-12.3); Monocytes Absolute Auto 0.6 X10*3/uL (0.1-1.2); Monocytes Percent Auto 8.9 % (2-11); Neutrophils Absolute Auto 3.9 x10*3/uL (2.0-8.3); Neutrophils Percent Auto 59.5 % (45-73); Platelet Count 404 X10*3/uL (160-400); Red Blood Count 4.24 X10*6/uL (4.20-5.50); Red Cell Distribution Width 13.9 % (11.0-16.0); White Blood Count 6.6 X10*3/uL (4.8-10.8)
[2025-04-20 11:31] LABS: Alanine Aminotransferase 21 U/L (0-31); Albumin Level 4.1 g/dL (3.5-5.0); Alkaline Phosphatase 66 U/L (39-117); Anion Gap 12 (12-20); Aspartate Amino Transferase 24 U/L (5-31); Bilirubin Total 0.7 mg/dL (0.0-1.0); Blood Urea Nitrogen 14 mg/dL (9-16); Calcium 9.1 mg/dL (8.4-10.2); Carbon Dioxide 29 mmol/L (22-29); Chloride 103 mmol/L (96-108); Cholesterol 201 mg/dL (<200); Estimated Glomerular Filt Rate > 60; Glucose Fasting 116 mg/dL (60-99); HDL Cholesterol 65 mg/dL (>40); LDL Cholesterol Calculated 114 mg/dL (<100); Potassium 3.6 mmol/L (3.3-5.1); Sodium 140 mmol/L (135-145); Total Protein 6.5 g/dL (6.5-8.0); Triglycerides 112 mg/dL (<150)
[2025-04-20 11:39] LABS: TSH reflex Free T4 1.48 uIU/mL (0.32-4.0)
[2025-04-20 12:30] LABS: CDiff Gene PCR NEGATIVE (Negative)
== END 2025-04-20 08:34 | disposition home or self-care (01) ==
LOC: HO.HMGCLDS 08:33
PROVIDERS: Internal Medicine; PCP Internal Medicine; Visit Provider Internal Medicine
DX: E03.8 Other specified hypothyroidism (principal); R10.13 Epigastric pain; N39.3 Stress incontinence (female) (male); M17.0 Bilateral primary osteoarthritis of knee; G89.4 Chronic pain syndrome; M47.812 Spondylosis without myelopathy or radiculopathy, cervical region; M81.0 Age-related osteoporosis without current pathological fracture; K58.2 Mixed irritable bowel syndrome; A04.72 Enterocolitis due to Clostridium difficile, not specified as recurrent
CPT/HCPCS: 80053; 80061; 84443; 85025; 87493

== ENCOUNTER 2025-04-21 11:10 | Outpatient (AMB) | payer MEDICARE, SELFPAY ==
--- NOTE | 2025-04-21 11:15 | MHC.PC.OV ---
Vital Signs 04/21/25 11:16 Height 4 ft 8 in Weight 109 lb BMI 24.4 BP 110/72 Blood Pressure Location Rt brachial Position Sitting Pulse 54 Pulse Source Pulse Oximeter Pulse Oximetry (%) 96 Oxygen Delivery Method Room Air Intake Visit Reasons: Annual PE - see comments Fixture Repairer Fabricator Required: No Accompanied by: Self / Same As Patient Allergies Penicillins Allergy (Mild, Verified 04/21/25 11:16) RASH, hives naproxen Adverse Reaction (Unknown, Verified 04/21/25 11:16) GI upset cat dander Allergy (Unknown, Uncoded 04/13/25 08:37) Unknown DUST Allergy (Unknown, Uncoded 04/13/25 08:37) UNKNOWN Medication List - Last Reconciled 04/21/25 by Barron Ravi MD alendronate 70 mg PO QWEEK 90 days [id number]-ttywwmkmpvtrn-qxpyhkah 250-250-65 mg (Excedrin Extra Strength) 1 tab PO ONCE PRN cholecalciferol (vitamin D3) 25 mcg PO DAILY gabapentin 300 mg PO TID 90 days Lactobacillus acidophilus (Probiotic Gold Acidophilus) 1,000 mmu cells PO DAILY levothyroxine 75 mcg PO DAILY 90 days omeprazole 20 mg PO BID ondansetron 8 mg PO ONCE PRN 30 days oxybutynin chloride 5 mg PO Q6H vancomycin 125 mg PO QID 7 days Tobacco use date assessed: 04/13/25 Fall risk assessment: No Falls in past year Last assessed Fall Risk: 04/21/25 Dental Screening Dental Screen Date: 04/13/25 HPI Annual PE - see comments HPI Details Physical exam appointment - The patient is a 69-year-old female presenting for a physical exam and evaluation of gastrointestinal symptoms. - Reported diarrhea had resolved; however, residual symptoms include gas and cramping. The patient notes increased gas and cramping since the diarrhea episode, which can be painful and makes her uncomfortable enough to lay down. These symptoms have worsened since the onset of diarrhea. Patient had C difficile diarrhea recent C diff test came back negative after treatment with vancomycin - Cramping presents almost daily regardless of diet. The patient describes feeling and hearing movements through her abdomen during episodes of cramping, which improves following gas passage. - Reports concern over an inguinal hernia with discomfort noted on exertion or strain, suspecting an association with prolonged diarrhea episodes. This discomfort is more noticeable during the lifting of objects or other activities involving physical strain. - Chronic pain moderately managed with gabapentin for arthritis-related pain. - History of GERD, largely controlled with as-needed omeprazole. - Osteoporosis diagnosis in 2020, with treatment showing improvement noted in 2020 bone density test results. - Hypothyroidism managed with levothyroxine. - Urinary incontinence managed with oxybutynin. - History of hyperlipidemia, managed without specific mention of cholesterol-lowering medication. Health Maintenance - Mammogram conducted in May of last year: no specific findings discussed. - Bone density showed osteopenia with a T-score of -2.2; improvement noted from osteoporosis diagnosis in 2020. - Colonoscopy conducted approximately three years ago. - Encouraged to consume yogurt for probiotic benefits for gastrointestinal health. - Labs indicate fasting glucose levels suggestive of prediabetes, with patient self-managing sugar intake due to history of gastric bypass. - Ongoing monitoring of mole on the back, identified as benign. - Encouraged to adhere to weight lifting restrictions to prevent exacerbation of suspected hernia. Medications - Alendronate for osteoporosis - Gabapentin 300 mg, three times daily for chronic pain and arthritis - Levothyroxine 75 mcg for hypothyroidism - Oxybutynin 5 mg for urinary incontinence - Omeprazole as needed for GERD - Vitamin D supplementation Diagnostic results - Labs: Fasting glucose elevated at 116 mg/dL. LDL cholesterol reported at 114 mg/dL. No anemia noted. Electrolytes and kidney function within normal limits. Thyroid function tests normal. - Tests & Diagnostics: Bone density indicating osteopenia with improvement from previous osteoporosis diagnosis in 2020. Patient Instructions - Consider taking prescribed medication dicyclomine 10 mg half an hour before meals up to 3 times a day for cramping as needed, not exceeding one every 8 hours. - Avoid lifting objects heavier than 40 pounds to prevent exacerbation of hernia. Left inguinal pain without bulge on examination - Consume yogurt regularly to aid in gastrointestinal health. - Monitor sugar intake closely due to post-gastric bypass sensitivities. Jury duty exemption letter provided secondary to diarrhea Review of Systems - General: No fever no chills - Neurological: No headaches no dizziness - Ear nose throat: No sore throat no hearing difficulty no ear pain - Cardiovascular: No syncope, no chest pain, no palpitations - Gastrointestinal: No nausea vomiting or diarrhea - Endocrine: No polyuria polydipsia no heat intolerance - Genitourinary: No dysuria - Skin: No new complaints Physical Exam General: Cooperative, healthy appearing, comfortable, no acute distress Orientation: Patient oriented x3 Head: Normal to inspection Ears: Within normal limit visually Nose: Normal external nose present Face and sinus: Normal facial exam Eyes: Appearance normal, extraocular movement intact pupils reactive Neck: Normal visual inspection and supple Respiratory: Normal respiratory effort and able to speak in complete sentences. Clear to auscultation, no stridor Cardiovascular: S1 and S2 RRR, heart rate is 54 GI: Abdomen soft to palpation, nontender, Possible inguinal hernia left noted with slight discomfort upon palpation. Skin: Turgor normal, no acute findings.. Neuro: Patient oriented x3, motor sensory intact, balance intact, tandem pass Extremities: Normal to inspection [facility] Medical History Unstable right knee Degeneration, intervertebral disc, cervical Spondylosis of cervical spine Chronic pain syndrome Osteoarthritis of knees, bilateral Muscle cramping Urinary incontinence Osteoarthritis Dyspepsia Other specified hypothyroidism Cervical spondylosis Surgical History History of hernia repair History of esophagogastroduodenoscopy (EGD) History of colonoscopy Lipoma of forearm Anal fistula History of gastric bypass History of tonsillectomy Anal fissure History of section Family History Father CAD (coronary artery disease) Mother HTN (hypertension) Spinal stenosis Dementia Hip fracture Sister No problems noted. Sister No problems noted. Daughter No problems noted. Maternal Grandfather No problems noted. Maternal Grandmother No problems noted. Paternal Grandfather No problems noted. Paternal Grandmother No problems noted. Social History Housing: House Alcohol intake: never Patient Tobacco Use Status: Former Tobacco user Tobacco use type: Cigarette e-Cigarette/Vaping Use: Never Used Second Hand Smoke Exposure: No service: No Current occupational status: retired and disabled Cognitive needs: No Hearing needs: No Vision needs: Yes Questionnaire Thrive Questionnaire Date Thrive assessed: 04/21/25 I am a: Patient What is your living situation today?: I have a steady place to live Within the past 12 months, did the food you bought not last and you didn't have the money to get more?: Never true Within the past 12 months, did you worry whether your food would run out before you got money to buy more?: Never true Do you have trouble paying for medicines?: I choose not to answer this question Do you have trouble getting transportation to medical appointments?: No Do you have trouble paying your heating and electricity bill?: No Do you have trouble taking care of your child, family member or friend?: No Do you have trouble with day-to-day activities such as bathing, preparing meals, shopping, managing finances, etc.?: No Are you currently unemployed and looking for a job?: No Are you interested in more education?: No Please select the resources that you would like help with: Paying for medicine Currently or been in a relationship where the following occur: No concerns reported THRIVE Score: 0 TYRONE-7 AMB Questionnaire TYRONE-7 Date TYRONE - 7 assessed: 01/25/25 Source: Developed by Drs. Harley Chapa, Anca Camlio, Ezekiel Gan and colleagues, with an educational omari from [employer]. Physical exam (Primary Care) Vital Signs: Last Vital Signs Pulse 54 04/21/25 11:16 BP 110/72 04/21/25 11:16 Pulse Ox 96 04/21/25 11:16 Oxygen Delivery Method Room Air 04/21/25 11:16 BMI result Body Mass Index 24.4 Tobacco/Smoking Status: Tobacco use Status Tobacco use date assessed 04/13/25 04/21/25 11:17 Patient Tobacco Use Status Former Tobacco user 04/21/25 11:17 Tobacco use type Cigarette 04/21/25 11:17 e-Cigarette/Vaping Use Never Used 04/21/25 11:17 Thrive Assessment: Date of Thrive Assessment Date Thrive assessed 04/21/25 04/21/25 11:17 Currently or been in a relationship where the following occur: No concerns reported Coding Level of Care Code Est Pt Level 4 (42265) Est Pt Prev Care >65y(64733) Diagnoses Encounter for general adult medical examination with abnormal findings Z00.01 Left inguinal pain R10.32 C. difficile diarrhea A04.72 Abdominal cramping R10.9 Impaired fasting blood sugar R73.01 Arthritis, multiple joint involvement M12.9 Stress incontinence (female) (male) N39.3 Irritable bowel syndrome with both constipation and diarrhea K58.2 Irritable bowel syndrome type: with both diarrhea and constipation Chronic pain syndrome G89.4 Spondylosis of cervical spine M47.812 Dyspepsia R10.13 Osteopenia of lumbar spine M85.88 Osteopenia location: lumbar spine Assessment & Plan Assessment & Plan (1) Encounter for general adult medical examination with abnormal findings: Code(s): Z00.01 - Encounter for general adult medical examination with abnormal findings Category: Medical (2) Left inguinal pain: Code(s): R10.32 - Left lower quadrant pain Category: Medical (3) C. difficile diarrhea: Code(s): A04.72 - Enterocolitis due to Clostridium difficile, not specified as recurrent Category: Medical (4) Abdominal cramping: Code(s): R10.9 - Unspecified abdominal pain Category: Medical (5) Impaired fasting blood sugar: Code(s): R73.01 - Impaired fasting glucose Category: Medical (6) Arthritis, multiple joint involvement: Code(s): M12.9 - Arthropathy, unspecified Category: Medical (7) Stress incontinence (female) (male): Code(s): N39.3 - Stress incontinence (female) (male) Category: Medical (8) IBS (irritable bowel syndrome): Code(s): K58.9 - Irritable bowel syndrome, unspecified Category: Medical Qualifiers: Irritable bowel syndrome type: with both diarrhea and constipation Qualified Code(s): K58.2 - Mixed irritable bowel syndrome (9) Chronic pain syndrome: Code(s): G89.4 - Chronic pain syndrome Category: Medical (10) Spondylosis of cervical spine: Code(s): M47.812 - Spondylosis without myelopathy or radiculopathy, cervical region Category: Medical (11) Dyspepsia: Code(s): R10.13 - Epigastric pain Category: Medical (12) Osteopenia: Code(s): M85.80 - Other specified disorders of bone density and structure, unspecified site Category: Medical Qualifiers: Osteopenia location: lumbar spine Qualified Code(s): M85.88 - Other specified disorders of bone density and structure, other site Plan Physical exam appointment - The patient is a 69-year-old female presenting for a physical exam and evaluation of gastrointestinal symptoms. - Reported diarrhea had resolved; however, residual symptoms include gas and cramping. The patient notes increased gas and cramping since the diarrhea episode, which can be painful and makes her uncomfortable enough to lay down. These symptoms have worsened since the onset of diarrhea. Patient had C difficile diarrhea recent C diff test came back negative after treatment with vancomycin - Cramping presents almost daily regardless of diet. The patient describes feeling and hearing movements through her abdomen during episodes of cramping, which improves following gas passage. - Reports concern over an inguinal hernia with discomfort noted on exertion or strain, suspecting an association with prolonged diarrhea episodes. This discomfort is more noticeable during the lifting of objects or other activities involving physical strain. - Chronic pain moderately managed with gabapentin for arthritis-related pain. - History of GERD, largely controlled with as-needed omeprazole. - Osteoporosis diagnosis in 2020, with treatment showing improvement noted in 2020 bone density test results. - Hypothyroidism managed with levothyroxine. - Urinary incontinence managed with oxybutynin. - History of hyperlipidemia, managed without specific mention of cholesterol-lowering medication. Health Maintenance - Mammogram conducted in May of last year: no specific findings discussed. - Bone density showed osteopenia with a T-score of -2.2; improvement noted from osteoporosis diagnosis in 2020. - Colonoscopy conducted approximately three years ago. - Encouraged to consume yogurt for probiotic benefits for gastrointestinal health. - Labs indicate fasting glucose levels suggestive of prediabetes, with patient self-managing sugar intake due to history of gastric bypass. - Ongoing monitoring of mole on the back, identified as benign. - Encouraged to adhere to weight lifting restrictions to prevent exacerbation of suspected hernia. Medications - Alendronate for osteoporosis - Gabapentin 300 mg, three times daily for chronic pain and arthritis - Levothyroxine 75 mcg for hypothyroidism - Oxybutynin 5 mg for urinary incontinence - Omeprazole as needed for GERD - Vitamin D supplementation Diagnostic results - Labs: Fasting glucose elevated at 116 mg/dL. LDL cholesterol reported at 114 mg/dL. No anemia noted. Electrolytes and kidney function within normal limits. Thyroid function tests normal. - Tests & Diagnostics: Bone density indicating osteopenia with improvement from previous osteoporosis diagnosis in 2020. Patient Instructions - Consider taking prescribed medication dicyclomine 10 mg half an hour before meals up to 3 times a day for cramping as needed, not exceeding one every 8 hours. - Avoid lifting objects heavier than 40 pounds to prevent exacerbation of hernia. Left inguinal pain without bulge on examination - Consume yogurt regularly to aid in gastrointestinal health. - Monitor sugar intake closely due to post-gastric bypass sensitivities. Jury duty exemption letter provided secondary to diarrhea Medications: New dicyclomine 10 mg PO TID 4 days 12 caps 0RF Changed From omeprazole 20 mg PO BID 90 caps 0RF stomach pain To omeprazole 20 mg PO ONCE PRN 90 caps 0RF stomach pain Discontinued vancomycin Discontinued Reason: Doctor's Order 125 mg PO QID 7 days 28 caps 0RF Lactobacillus acidophilus (Probiotic Gold Acidophilus) Discontinued Reason: Doctor's Order 1,000 mmu cells PO DAILY 90 caps 0RF
[2025-04-21 11:16] VITALS: BP 110/72; PULSE 54; O2SAT 96; BMI 24.4
== END 2025-04-21 11:48 | disposition home or self-care (01) ==
LOC: HO.HMCC 11:11
PROVIDERS: PCP Internal Medicine; Visit Provider Internal Medicine
DX: Z00.00 Encounter for general adult medical examination without abnormal findings (principal); R10.32 Left lower quadrant pain; A04.72 Enterocolitis due to Clostridium difficile, not specified as recurrent; R10.9 Unspecified abdominal pain; R73.01 Impaired fasting glucose; M12.9 Arthropathy, unspecified; N39.3 Stress incontinence (female) (male); K58.2 Mixed irritable bowel syndrome; G89.4 Chronic pain syndrome; M47.812 Spondylosis without myelopathy or radiculopathy, cervical region; R10.13 Epigastric pain; M85.88 Other specified disorders of bone density and structure, other site

== ENCOUNTER → 2025-04-21 11:10 | Outpatient (BNVA) | payer MEDICARE, SELFPAY | PROVIDERS: PCP Internal Medicine; Visit Provider Internal Medicine | DX: Z00.01 Encounter for general adult medical examination with abnormal findings (principal); R10.32 Left lower quadrant pain; A04.72 Enterocolitis due to Clostridium difficile, not specified as recurrent; R10.9 Unspecified abdominal pain; R73.01 Impaired fasting glucose; M12.9 Arthropathy, unspecified; N39.3 Stress incontinence (female) (male); K58.2 Mixed irritable bowel syndrome; G89.4 Chronic pain syndrome; M47.812 Spondylosis without myelopathy or radiculopathy, cervical region; R10.13 Epigastric pain; M85.88 Other specified disorders of bone density and structure, other site | CPT/HCPCS: 99212; 99397 ==

== ENCOUNTER 2025-07-04 10:24 | Outpatient (REF) | payer MEDICARE, SELFPAY ==
--- OUTSIDE RECORDS SUMMARY | 2025-07-04 11:05 | XMS_ITS | Patient Health Record ---
Author Organization [facility] Address [address] [place] [address] Care Team Providers Care Filter Plant Operator Name Role Phone Jessica DICKINSON, Kiara Primary Care Provider U Harley Mustafa Unavailable [phone] Allergies Allergen (clinical drug ingredient) Drug/Non Drug Allergy documented on EMR Reaction Allergy Type Onset Date Status Penicillin GI upset Drug Allergy Active naproxen Naproxen hives Drug Allergy Active Reason For Referral No Information Medications Medication SIG (Take, Route, Frequency, Duration) Notes Start Date End Date Status Vitamin D 1000units Active Calcium 1200mg Activ e Vitamin B12 1000mcg Active oxyBUTYnin Chloride ER 10 MG take 1 caps ule by mouth once daily Oral for 30 Active Omeprazole 20 MG take 1 capsule by mo uth once daily Oral for 30 Active Effexor XR 37.5mg Ac tive Venlafaxine HCl ER 37.5 MG TAKE ONE CAPS ULE BY MOUTH WEEKLY Oral for 30 Active Nasonex 50mcg Active Acetaminophen-Codeine #3 300-30 MG take 1 tablet by mouth once daily if needed for 30 DAYS Oral for 30 Active Lisinopril 10mg Acti ve Zofran ODT 4 MG as directed Orally 1 SL/PO Q 4-6 hours prn nausea for 30 days 04/18/2014 Active Estring 2mg Active Pataday 0.2 % 1 drop into affected eye Ophthalmic Once a day Active Aspir-81 81mg Active Levothyroxine Sodium 100mcg Active Problems Problem Type SNOMED Code ICD Code Onset Dates Problem Status W/U Status Risk Notes Problem Esophageal reflux (970138695) Esophageal reflux (530.81) Active confirmed Problem Nausea (986363894) Nausea alone (787.02) Active confirmed Problem Vomiting (190709893) Vomiting alone (787.03) Active confirmed Problem Colon cancer screening (253298323) Colon cancer screening (V76.51) Active confirmed Problem History of adenomatous polyp of colon (846161993) History of adenomatous polyp of colon (V12.72) Active confirmed Problem Nausea (398879783) Nausea (787.02) Active confirmed Plan Of Treatment Future Test Test Name Order Date COLONOSCOPY 04/18/2014 Insurance Providers Payer Name Payer Address Payer Phone Subscriber Number Group Number Insured Name Patient Relationship to Insured Coverage Start Date Coverage End Date MEDICARE OF [place] [address] [place] [address] [phone] [id number] LARRY FOURNIER Self - patient is the insured [employer]ID OF [employer] [facility] [address] [place] [phone] [id number] LARRY FOURNIER Self - patient is the insured Medical (General) History Medical History History ICD Code Colon polyps-colonoscopy in 02/05--1 tubu lar adenoma removed HTN Hypothyroid Depression Denies NM,DM,CVA,Lung disease,renal dise ase C-spine bulging discs diverticulosis internal hemorrhoids osteoarthritis metabolic syndrome hypertension cervical spondylosis Hypothyroidism obesity GERD urinary incontinence postmenopausal EGD in 02/2012 -- normal s/p gastric bypa ss she had an upper endoscopy i n February 2012 which was negative for any sign of gastritis, peptic ulcer disease, esophagitis, nor any abnormality at the region of the gastric bypass anastomosis Surgical History Surgery Date(Month/Year) CCY Gastric bypass by Dr. Rapp in 2003, wi th approx. 100# wt. loss perirectal abscess tonsillectomy cholecystectomy Epigastric and supraumbilica l hernia repair in 11/[address] Noel--has a mesh
== END 2025-07-04 10:25 | disposition home or self-care (01) ==
LOC: HO.MAMMO 10:24
PROVIDERS: PCP Internal Medicine; Visit Provider Internal Medicine
DX: Z12.31 Encounter for screening mammogram for malignant neoplasm of breast (principal)
CPT/HCPCS: 77063; 77067

== ENCOUNTER → 2025-07-04 10:45 | Outpatient (BNV) | payer MEDICARE, SELFPAY | PROVIDERS: PCP Internal Medicine; Visit Provider Internal Medicine | DX: Z12.31 Encounter for screening mammogram for malignant neoplasm of breast (principal) | CPT/HCPCS: 77063; 77067 ==

== ENCOUNTER 2025-07-25 09:59 | Outpatient (AMB) | payer MEDICARE, SELFPAY ==
--- NOTE | 2025-07-25 10:10 | A.OFFPC_ITS ---
Vital Signs 07/25/25 10:11 Height 4 ft 8 in Weight 107 lb BMI 24.0 BP 112/74 Blood Pressure Location Lt brachial Position Sitting Pulse 72 Pulse Source Pulse Oximeter Pulse Oximetry (%) 96 Oxygen Delivery Method Room Air Intake Visit Reasons: 3 months f/up Allergies Penicillins Allergy (Mild, Verified 07/25/25 10:12) RASH, hives dicyclomine Adverse Reaction (Intermediate, Verified 07/25/25 10:19) Vomiting naproxen Adverse Reaction (Unknown, Verified 07/25/25 10:12) GI upset cat dander Allergy (Unknown, Uncoded 04/13/25 08:37) Unknown DUST Allergy (Unknown, Uncoded 04/13/25 08:37) UNKNOWN Medication List - Last Reconciled 07/25/25 by Barron Ravi MD alendronate 70 mg PO QWEEK 90 days cholecalciferol (vitamin D3) 25 mcg PO DAILY dicyclomine 10 mg PO TID 4 days gabapentin 300 mg PO TID 90 days levothyroxine 75 mcg PO DAILY 90 days omeprazole 20 mg PO ONCE PRN ondansetron 8 mg PO ONCE PRN 30 days oxybutynin chloride 5 mg PO Q6H Tobacco use date assessed: 04/13/25 Fall risk assessment: 1 Fall in past year Last assessed Fall Risk: 07/25/25 Dental Screening Dental Screen Date: 04/13/25 HPI 3 months f/up HPI Details Chief Complaint Longitudinal care visit History The patient is a 69-year-old female presenting with a syncopal episode. Syncope: - The syncopal episode occurred in early June, approximately 26 days prior to the visit. - The patient experienced a loss of cons ciousness while outside her home shortly after removing her mask to breathe. - She reports feeling overheated from we aring the mask indoors and subsequently feeling shortness of breath. - The incident resulted in a head injury , with lumps and a bleeding wound to the head. - She reports feeling better immediately after waking, with persistent tenderness at the site of injury. - The bleeding stopped with compression and steri-strips were applied. - The patient did not seek emergency car e due to concerns about wearing a mask during potential evaluation. - The fall coincided with a recent COVID -19 diagnosis, cited as a potential factor due to health stressors. Adverse Reaction to Dicyclomine: - The patient reports experiencing nause a and a feeling of heaviness after taking dicyclomine. - She subsequently discontinued the medi cation. COVID-19 Infection: - The patient and her daughter tested po sitive for COVID-19 shortly before the syncopal episode. - Her symptoms included body aches and a severe, persisting headache. - There was a report of no significant b reathing distress except in association with mask wear indoors. Headache: - The patient experienced intense, unrem itting headaches for weeks following her COVID-19 diagnosis. - The headaches seemingly began with bod y aches and coincided with the reported syncopal episode. Bladder and GI spasms: With a history of irritable bowel - The patient reports cramping with sasha l movements, occasionally severe. - Previously managed with omeprazole but adherence to as-needed regimen was inconsistent. - Omeprazole was not noted to cause naus ea, unlike dicyclomine. Medical History: - COVID-19 infection in early June, as confirmed by testing. - History of taking dicyclomine, now dis continued due to adverse reaction. Medications: - Omeprazole as-needed for gastrointesti nal cramping. - Gabapentin 300 mg, 3 times a day Social History: - Involved in home renovation activities , including painting. - Undergoing preparations to move houses with assistance from daughter. Problem List - Syncope - Head Injury early June - Adverse Reaction to Dicyclomine - COVID-19 Infection early June - Gastrointestinal Cramping secondary to IBS - multiple joint osteoarthritis Diagnostic results - Labs conducted on April 20 indicate: - Electrolytes, aerobic, and kidneys within normal limits. - Liver enzymes normal. - LDL: 114 - TSH: 1.48 [place] [facility] - Daughter involved in daily living and home relocation activities. Patient Instructions - Take omeprazole every night before bed . - Monitor symptoms and seek emergency ca re if similar episodes occur. - Stay hydrated and avoid rapid position changes. - Continue with gabapentin and request r efills as needed. Be aware that gabapentin can cause postural hypotension if you are not I did well Follow-up 3 months Review of Systems General: No fever no chills ear nose throat: No sore throat no hearing difficulty no ear pain cardiovascular: No syncope, no chest pain, no palpitations gastrointestinal: No nausea vomiting or diarrhea endocrine: No polyuria polydipsia no heat intolerance genitourinary: No dysuria skin: No new complaints Physical Exam general: No acute distress HEENT: Laceration left parietal area healing well from early June neck: Supple respiratory system: Shortness of breath noted cardiovascular: S1-S2 RRR gastrointestinal: Soft nontender extremities: No new findings HUNTER: Alert awake oriented x3 motor intact skin: Normal turgor [facility] Medical History Unstable right knee Degeneration, intervertebral disc, cervical Spondylosis of cervical spine Chronic pain syndrome Osteoarthritis of knees, bilateral Muscle cramping Urinary incontinence Osteoarthritis Dyspepsia Other specified hypothyroidism Cervical spondylosis Surgical History History of hernia repair History of esophagogastroduodenoscopy (EGD) History of colonoscopy Lipoma of forearm Anal fistula History of gastric bypass History of tonsillectomy Anal fissure History of section Family History Father CAD (coronary artery disease) Mother HTN (hypertension) Spinal stenosis Dementia Hip fracture Sister No problems noted. Sister No problems noted. Daughter No problems noted. Maternal Grandfather No problems noted. Maternal Grandmother No problems noted. Paternal Grandfather No problems noted. Paternal Grandmother No problems noted. Social History Housing: House Alcohol intake: never Patient Tobacco Use Status: Former Tobacco user Tobacco use type: Cigarette e-Cigarette/Vaping Use: Never Used Second Hand Smoke Exposure: No service: No Current occupational status: retired and disabled Cognitive needs: No Hearing needs: No Vision needs: Yes Questionnaire Thrive Questionnaire Date Thrive assessed: 01/19/25 I am a: Patient What is your living situation today?: I have a steady place to live Within the past 12 months, did the food you bought not last and you didn't have the money to get more?: Never true Within the past 12 months, did you worry whether your food would run out before you got money to buy more?: Never true Do you have trouble paying for medicines?: I choose not to answer this question Do you have trouble getting transportation to medical appointments?: No Do you have trouble paying your heating and electricity bill?: No Do you have trouble taking care of your child, family member or friend?: No Do you have trouble with day-to-day activities such as bathing, preparing meals, shopping, managing finances, etc.?: No Are you currently unemployed and looking for a job?: No Are you interested in more education?: No Please select the resources that you would like help with: Paying for medicine Currently or been in a relationship where the following occur: No concerns reported THRIVE Score: 0 TYRONE-7 AMB Questionnaire TYRONE-7 Date TYRONE - 7 assessed: 01/25/25 Source: Developed by Drs. Harley Chapa, Anca Camilo, Ezekiel Gan and colleagues, with an educational omari from [employer]. Physical exam (Primary Care) Vital Signs: Last Vital Signs Pulse 72 07/25/25 10:11 BP 112/74 07/25/25 10:11 Pulse Ox 96 07/25/25 10:11 Oxygen Delivery Method Room Air 07/25/25 10:11 BMI result Body Mass Index 24.0 Tobacco/Smoking Status: Tobacco use Status Tobacco use date assessed 04/13/25 07/25/25 10:13 Patient Tobacco Use Status Former Tobacco user 07/25/25 10:13 Tobacco use type Cigarette 07/25/25 10:13 e-Cigarette/Vaping Use Never Used 07/25/25 10:13 Thrive Assessment: Date of Thrive Assessment Date Thrive assessed 01/19/25 07/25/25 10:13 Currently or been in a relationship where the following occur: No concerns reported Coding Level of Care Code Est Pt Level 4 (54106) Complex EM visit Add On G2211 Diagnoses Vasovagal syncope R55 Syncope type: vasovagal syncope Laceration of scalp, sequela S01.01XS Encounter type: sequela Traumatic injury of head, sequela S09.90XS Encounter type: sequela Spondylosis of cervical spine M47.812 Osteoarthritis involving multiple joints on both sides of body M15.9 Stress incontinence (female) (male) N39.3 Irritable bowel syndrome with both constipation and diarrhea K58.2 Irritable bowel syndrome type: with both diarrhea and constipation Osteopenia of lumbar spine M85.88 Osteopenia location: lumbar spine History of gastric bypass Z98.84 Other specified hypothyroidism E03.8 Impaired fasting blood sugar R73.01 Depression, major, single episode, mild F32.0 Assessment & Plan Assessment & Plan (1) Syncopal episodes: Code(s): R55 - Syncope and collapse Category: Medical Qualifiers: Syncope type: vasovagal syncope Qualified Code(s): R55 - Syncope and collapse (2) Scalp laceration: Code(s): S01.01XA - Laceration without foreign body of scalp, initial encounter Category: Medical Qualifiers: Encounter type: sequela Qualified Code(s): S01.01XS - Laceration with out foreign body of scalp, sequela (3) Head trauma: Code(s): S09.90XA - Unspecified injury of head, initial encounter Category: Medical Qualifiers: Encounter type: sequela Qualified Code(s): S09.90XS - Unspecified injury of head, sequela (4) Spondylosis of cervical spine: Code(s): M47.812 - Spondylosis without myelopathy or radiculopathy, cervical region Category: Medical (5) Osteoarthritis involving multiple joints on both sides of body: Code(s): M15.9 - Polyosteoarthritis, unspecified Category: Medical (6) Stress incontinence (female) (male): Code(s): N39.3 - Stress incontinence (female) (male) Category: Medical (7) IBS (irritable bowel syndrome): Code(s): K58.9 - Irritable bowel syndrome, unspecified Category: Medical Qualifiers: Irritable bowel syndrome type: with both diarrhea and constipation Qualified Code(s): K58.2 - Mixed irritable bowel syndrome (8) Osteopenia: Code(s): M85.80 - Other specified disorders of bone density and structure, unspecified site Category: Medical Qualifiers: Osteopenia location: lumbar spine Qualified Code(s): M85.88 - Other specified disorders of bone density and structure, other site (9) History of gastric bypass: Code(s): Z98.84 - Bariatric surgery status Category: Surgical (10) Other specified hypothyroidism: Code(s): E03.8 - Other specified hypothyroidism Category: Medical (11) Impaired fasting blood sugar: Code(s): R73.01 - Impaired fasting glucose Category: Medical (12) Depression, major, single episode, mild: Code(s): F32.0 - Major depressive disorder, single episode, mild Category: Medical Plan Chief Complaint Longitudinal care visit History The patient is a 69-year-old female presenting with a syncopal episode. Syncope: - The syncopal episode occurred in early June, approximately 26 days prior to the visit. - The patient experienced a loss of consciousness while outside her home shortly after removing her mask to breathe. - She reports feeling overheated from wearing the mask indoors and subsequently feeling shortness of breath. - The incident resulted in a head injury, with lumps and a bleeding wound to the head. - She reports feeling better immediately after waking, with persistent tenderness at the site of injury. - The bleeding stopped with compression and steri-strips were applied. - The patient did not seek emergency care due to concerns about wearing a mask during potential evaluation. - The fall coincided with a recent COVID-19 diagnosis, cited as a potential factor due to health stressors. Adverse Reaction to Dicyclomine: - The patient reports experiencing nausea and a feeling of heaviness after taking dicyclomine. - She subsequently discontinued the medication. COVID-19 Infection: - The patient and her daughter tested positive for COVID-19 shortly before the syncopal episode. - Her symptoms included body aches and a severe, persisting headache. - There was a report of no significant breathing distress except in association with mask wear indoors. Headache: - The patient experienced intense, unremitting headaches for weeks following her COVID-19 diagnosis. - The headaches seemingly began with body aches and coincided with the reported syncopal episode. Bladder and GI spasms: With a history of irritable bowel - The patient reports cramping with bowel movements, occasionally severe. - Previously managed with omeprazole but adherence to as-needed regimen was inconsistent. - Omeprazole was not noted to cause nausea, unlike dicyclomine. Medical History: - COVID-19 infection in early June, as confirmed by testing. - History of taking dicyclomine, now discontinued due to adverse reaction. Medications: - Omeprazole as-needed for gastrointestinal cramping. - Gabapentin 300 mg, 3 times a day Social History: - Involved in home renovation activities, including painting. - Undergoing preparations to move houses with assistance from daughter. Problem List - Syncope - Head Injury early June - Adverse Reaction to Dicyclomine - COVID-19 Infection early June - Gastrointestinal Cramping secondary to IBS - multiple joint osteoarthritis Diagnostic results - Labs conducted on April 20 indicate: - Electrolytes, aerobic, and kidneys within normal limits. - Liver enzymes normal. - LDL: 114 - TSH: 1.48 [place] [facility] - Daughter involved in daily living and home relocation activities. Patient Instructions - Take omeprazole every night before bed. - Monitor symptoms and seek emergency care if similar episodes occur. - Stay hydrated and avoid rapid position changes. - Continue with gabapentin and request refills as needed. Be aware that gabapentin can cause postural hypotension if you are not I did well Follow-up 3 months Orders: Orders Complete Blood Count Auto Diff Today E03.8 - Other specified hypothyroidism, F32.0 - Major depressive disorder, single episode, mild, K58.2 - Mixed irritable bowel syndrome, M15.9 - Polyosteoarthritis, unspecified, M47.812 - Spondylosis without myelopathy or radiculopathy, cervical region, M85.88 - Other specified disorders of bone density and structure, other site, N39.3 - Stress incontinence (female) (male), R73.01 - Impaired fasting glucose, Z98.84 - Bariatric surgery status TSH reflex Free T4 Today E03.8 - Other specified hypothyroidism, F32.0 - Major depressive disorder, single episode, mild, K58.2 - Mixed irritable bowel syndrome, M15.9 - Polyosteoarthritis, unspecified, M47.812 - Spondylosis without myelopathy or radiculopathy, cervical region, M85.88 - Other specified disorders of bone density and structure, other site, N39.3 - Stress incontinence (female) (male), R73.01 - Impaired fasting glucose, Z98.84 - Bariatric surgery status Comprehensive Met. Panel Today E03.8 - Other specified hypothyroidism, F32.0 - Major depressive disorder, single episode, mild, K58.2 - Mixed irritable bowel syndrome, M15.9 - Polyosteoarthritis, unspecified, M47.812 - Spondylosis without myelopathy or radiculopathy, cervical region, M85.88 - Other specified disorders of bone density and structure, other site, N39.3 - Stress incontinence (female) (male), R73.01 - Impaired fasting glucose, Z98.84 - Bariatric surgery status Hemoglobin A1c Today R73.01 - Impaired fasting glucose Medications: Changed From omeprazole 20 mg PO ONCE PRN 90 caps 0RF stomach pain To omeprazole 20 mg PO ONCE 90 caps 0RF stomach pain Refilled gabapentin 300 mg PO TID 270 caps 0RF 90 days Discontinued dicyclomine Discontinued Reason: Doctor's Order 10 mg PO TID 4 days 12 caps 0RF
[2025-07-25 10:11] VITALS: BP 112/74; PULSE 72; O2SAT 96; BMI 24.0
--- OUTSIDE RECORDS SUMMARY | 2025-07-25 10:42 | XMS_ITS | Patient Health Record ---
Author Organization [facility] Address [address] [place] [address] Care Team Providers Care Telegraph Office Manager Name Role Phone Jessica DICKINSON, Kiara Primary Care Provider U Harley Mustafa Unavailable [phone] Allergies Allergen (clinical drug ingredient) Drug/Non Drug [...] W/U Status Risk Notes Problem Esophageal reflux (330324288) Esophageal reflux (530.81) Active confirmed Problem Nausea (537966218) Nausea alone (787.02) Active confirmed Problem Vomiting (686938492) Vomiting alone (787.03) Active confirmed Problem Colon cancer screening (V76.51) Active confirmed Problem History of adenomatous polyp of colon (650096846) History of adenomatous polyp of colon (V12.72) Active confirmed Problem Nausea (787.02) Active confirmed Plan Of Treatment Future Test Test Name Order Date COLONOSCOPY 04/18/2014 Insurance Providers Payer Name Payer Address Payer Phone Subscriber Number Group Number Insured Name Patient Relationship to Insured Coverage Start Date Coverage End Date MEDICARE OF [place] [address] [place] [address] [id number] LARRY FOURNIER Self - patient is the insured [facility] [address] [place] [address] [id number] LARRY FOURNIER Self - patient is the insured Medical (General) History Medical History History ICD Code Colon polyps-colonoscopy in 02/05--1 tubu lar adenoma removed HTN Hypothyroid Depression Denies LA,DM,CVA,Lung disease,renal dise ase C-spine bulging discs diverticulosis [...] l hernia repair in 11/[address] oNel--has a mesh
== END 2025-07-25 10:33 | disposition home or self-care (01) ==
LOC: HO.HMCC 10:00
PROVIDERS: PCP Internal Medicine; Visit Provider Internal Medicine
DX: R55 Syncope and collapse (principal); S01.01XS Laceration without foreign body of scalp, sequela; S09.90XS Unspecified injury of head, sequela; M47.812 Spondylosis without myelopathy or radiculopathy, cervical region; M15.9 Polyosteoarthritis, unspecified; N39.3 Stress incontinence (female) (male); K58.2 Mixed irritable bowel syndrome; M85.88 Other specified disorders of bone density and structure, other site; Z98.84 Bariatric surgery status; E03.8 Other specified hypothyroidism; R73.01 Impaired fasting glucose; F32.0 Major depressive disorder, single episode, mild

== ENCOUNTER → 2025-07-25 09:59 | Outpatient (BNVA) | payer MEDICARE, SELFPAY | PROVIDERS: PCP Internal Medicine; Visit Provider Internal Medicine | DX: R55 Syncope and collapse (principal); M47.812 Spondylosis without myelopathy or radiculopathy, cervical region; M15.9 Polyosteoarthritis, unspecified; N39.3 Stress incontinence (female) (male); K58.2 Mixed irritable bowel syndrome; E03.8 Other specified hypothyroidism; M85.88 Other specified disorders of bone density and structure, other site; R73.01 Impaired fasting glucose; F32.0 Major depressive disorder, single episode, mild; Z98.84 Bariatric surgery status | CPT/HCPCS: 99212 ==

== ENCOUNTER 2025-11-15 11:50 | Outpatient (AMB) | payer MEDICARE, SELFPAY ==
--- NOTE | 2025-11-15 11:54 | MHC.PC.OV ---
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 Required: No Accompanied by: Self / Same As Patient Allergies Penicillins Allergy (Mild, Verified 11/15/25 12:00) RASH, hives dicyclomine Adverse Reaction (Intermediate, Verified 11/15/25 12:00) Vomiting naproxen Adverse Reaction (Unknown, Verified 11/15/25 12:00) GI upset cat dander Allergy (Unknown, Uncoded 11/15/25 12:00) Unknown DUST Allergy (Unknown, Uncoded 11/15/25 12:00) UNKNOWN Medication List - Last Reconciled 11/15/25 by Barron Ravi MD alendronate 70 mg PO QWEEK 90 days cholecalciferol (vitamin D3) 25 mcg PO DAILY gabapentin 300 mg PO TID 90 days levothyroxine 75 mcg PO DAILY 90 days omeprazole 20 mg PO ONCE ondansetron 8 mg PO ONCE PRN 30 days oxybutynin chloride 5 mg PO Q6H Tobacco use date assessed: 11/15/25 Fall risk assessment: No Falls in past year Last assessed Fall Risk: 11/15/25 Dental Screening Dental Screen Date: 11/15/25 Did you have a dental visit in the last 12 months?: Yes Did you have a dental problem in the last 6 months where you did not have access to dental care?: No Was dental information given to patient?: Yes HPI HPI Comments History of Present Illness Details History of Present Illness The patient is a 70 year old female presenting for a regular follow-up visit Head Injury: - A few months ago, the patient struck her head on the right side of her forehead, which resulted in swelling and a severe headache. - She did not experience loss of consciousness or bleeding. - She applied ice to the area. - A small lump persists but has significantly decreased in size. Irritable Bowel Syndrome: - The patient reports experiencing intermittent cramps in her lower abdomen, which can be severe at times. - She is not currently taking any medication for the cramps. - A previous trial of dicyclomine resulted in vomiting. Chronic Conditions and Medication Management: - The patient takes alendronate for osteoporosis, gabapentin 300 mg three times daily for pain, levothyroxine 75 mcg for hypothyroidism, omeprazole 20 mg for reflux, and oxybutynin. - She reports that her current medications are working well. - Her last laboratory tests were in March. - Prior labs showed slightly compromised kidney function, a fasting blood glucose of 116 mg/dL, and an LDL of 114 mg/dL. Medical History: - Osteoporosis - Chronic pain - Hypothyroidism - Gastroesophageal reflux disease - Overactive bladder - Irritable bowel syndrome, with intolerance to dicyclomine causing vomiting - Head injury, occurred a few months prior to visit - History of compromised kidney function on prior labs - History of prediabetes based on prior fasting glucose of 116 mg/dL Medications: - Alendronate for osteoporosis - Gabapentin 300 mg three times a day for pain - Levothyroxine 75 mcg - Omeprazole 20 mg for reflux - Oxybutynin Social History: - The patient recently sold her house and moved to [place]. - She lives in a four-bedroom house with her daughter and her daughter's partner. - The patient has three dogs and two cats. - Her pharmacy has been changed to [facility] on [address] in [place]. Family History: - The patient's sister lives in [place]. Diagnostic Results: - Vitals: Blood pressure was 122/78 mmHg. - Prior Labs (from March): - Kidney function was slightly compromised. - Fasting glucose was 116 mg/dL. - LDL cholesterol was 114 mg/dL. - Liver enzymes were normal. - Thyroid function was normal. COUNTS INCLUDE 234 BEDS AT THE [facility] Medical History Unstable right knee Degeneration, intervertebral disc, cervical Spondylosis of cervical spine Chronic pain syndrome Osteoarthritis of knees, bilateral Muscle cramping Urinary incontinence Osteoarthritis Dyspepsia Other specified hypothyroidism Cervical spondylosis Surgical History History of hernia repair History of esophagogastroduodenoscopy (EGD) History of colonoscopy Lipoma of forearm Anal fistula History of gastric bypass History of tonsillectomy Anal fissure History of section Family History Father CAD (coronary artery disease) Mother HTN (hypertension) Spinal stenosis Dementia Hip fracture Sister No problems noted. Sister No problems noted. Daughter No problems noted. Maternal Grandfather No problems noted. Maternal Grandmother No problems noted. Paternal Grandfather No problems noted. Paternal Grandmother No problems noted. Social History Housing: House Alcohol intake: never Patient Tobacco Use Status: Former Tobacco user Tobacco use type: Cigarette e-Cigarette/Vaping Use: Never Used Second Hand Smoke Exposure: No service: No Current occupational status: retired and disabled Cognitive needs: No Hearing needs: No Vision needs: Yes Questionnaire Thrive Questionnaire Date Thrive assessed: 01/19/25 I am a: Patient What is your living situation today?: I have a steady place to live Within the past 12 months, did the food you bought not last and you didn't have the money to get more?: Never true Within the past 12 months, did you worry whether your food would run out before you got money to buy more?: Never true Do you have trouble paying for medicines?: I choose not to answer this question Do you have trouble getting transportation to medical appointments?: No Do you have trouble paying your heating and electricity bill?: No Do you have trouble taking care of your child, family member or friend?: No Do you have trouble with day-to-day activities such as bathing, preparing meals, shopping, managing finances, etc.?: No Are you currently unemployed and looking for a job?: No Are you interested in more education?: No Please select the resources that you would like help with: Paying for medicine Currently or been in a relationship where the following occur: No concerns reported THRIVE Score: 0 TYRONE-7 AMB Questionnaire TYRONE-7 Date TYRONE - 7 assessed: 01/25/25 Source: Developed by Drs. Harley Chapa, Anca Camilo, Ezekiel Gan and colleagues, with an educational omari from [employer]. Review of Systems Narrative Review of Systems . - General: No fever no chills - Neurological: No headaches no dizziness - Ear nose throat: No sore throat no hearing difficulty no ear pain - Cardiovascular: No syncope, no chest pain, no palpitations - Gastrointestinal: No nausea vomiting or diarrhea - Endocrine: No polyuria polydipsia no heat intolerance - Genitourinary: No dysuria , no blood in urine Physical exam (Primary Care) Vital Signs: Last Vital Signs Pulse 68 11/15/25 11:55 Resp 16 11/15/25 11:55 BP 122/78 11/15/25 11:55 Pulse Ox 95 11/15/25 11:55 Oxygen Delivery Method Room Air 11/15/25 11:55 BMI result Body Mass Index 23.1 Tobacco/Smoking Status: Tobacco use Status Tobacco use date assessed 11/15/25 11/15/25 11:57 Patient Tobacco Use Status Former Tobacco user 11/15/25 11:57 Tobacco use type Cigarette 11/15/25 11:57 e-Cigarette/Vaping Use Never Used 11/15/25 11:57 Thrive Assessment: Date of Thrive Assessment Date Thrive assessed 01/19/25 11/15/25 11:57 Currently or been in a relationship where the following occur: No concerns reported Narrative Physical Exam General: No acute distress HEENT: No acute findings, noted a small lump on the right side of the forehead, residual from previous injury Neck: Supple Respiratory system: Able to talk in full sentences, no audible wheeze Cardiovascular: S1-S2 regular in rate and rhythm Gastrointestinal: no pain currently Extremities: No new findings 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: Alert awake oriented x3 motor intact Skin: Normal turgor, small lump noted on the right side of the forehead, residual from previous injury Coding Level of Care Code Est Pt Level 4 (37574) Add On Problem Visit Only Diagnoses Traumatic injury of head, sequela S09.90XS Encounter type: sequela Spondylosis of cervical spine M47.812 Osteoarthritis involving multiple joints on both sides of body M15.9 Stress incontinence (female) (male) N39.3 Irritable bowel syndrome with both constipation and diarrhea K58.2 Irritable bowel syndrome type: with both diarrhea and constipation Osteopenia of lumbar spine M85.88 Osteopenia location: lumbar spine History of gastric bypass Z98.84 Other specified hypothyroidism E03.8 Impaired fasting blood sugar R73.01 Assessment & Plan Assessment & Plan (1) Head trauma: Code(s): S09.90XA - Unspecified injury of head, initial encounter Category: Medical Qualifiers: Encounter type: sequela Qualified Code(s): S09.90XS - Unspecified injury of head, sequela (2) Spondylosis of cervical spine: Code(s): M47.812 - Spondylosis without myelopathy or radiculopathy, cervical region Category: Medical (3) Osteoarthritis involving multiple joints on both sides of body: Code(s): M15.9 - Polyosteoarthritis, unspecified Category: Medical (4) Stress incontinence (female) (male): Code(s): N39.3 - Stress incontinence (female) (male) Category: Medical (5) IBS (irritable bowel syndrome): Code(s): K58.9 - Irritable bowel syndrome, unspecified Category: Medical Qualifiers: Irritable bowel syndrome type: with both diarrhea and constipation Qualified Code(s): K58.2 - Mixed irritable bowel syndrome (6) Osteopenia: Code(s): M85.80 - Other specified disorders of bone density and structure, unspecified site Category: Medical Qualifiers: Osteopenia location: lumbar spine Qualified Code(s): M85.88 - Other specified disorders of bone density and structure, other site (7) History of gastric bypass: Code(s): Z98.84 - Bariatric surgery status Category: Surgical (8) Other specified hypothyroidism: Code(s): E03.8 - Other specified hypothyroidism Category: Medical (9) Impaired fasting blood sugar: Code(s): R73.01 - Impaired fasting glucose Category: Medical Plan Problem List - Regular follow-up visit - Head injury with residual hematoma - Irritable bowel syndrome - Chronic pain - Osteoporosis - Hypothyroidism - Gastroesophageal reflux disease - Overactive bladder - Prediabetes - Hyperlipidemia - Chronic kidney disease, unspecified - Preventative care: Laboratory monitoring Plan - The patient was advised that the lump on her head is superficial, located within the skin, and not a cause for concern. - For her abdominal cramps, the patient was informed they are likely due to irritable bowel syndrome and food sensitivities, requiring dietary modification to identify triggers. - The patient will proceed to have blood tests done today to repeat kidney function, fasting sugar, and thyroid levels, as the last tests were in March. - Refills for alendronate and gabapentin have been sent to her new preferred pharmacy, [facility] in [place]. - The patient will schedule a follow-up appointment in three months. - Discussed the option of transferring care to a provider at a closer office due to her recent move, but the patient will continue at the current location for now. f/u 3 M Medications: Refilled alendronate 70 mg PO QWEEK 13 tabs 3RF 90 days gabapentin 300 mg PO TID 270 caps 0RF 90 days
[2025-11-15 11:55] VITALS: BP 122/78; PULSE 68; RESP 16; O2SAT 95; BMI 23.1
--- OUTSIDE RECORDS SUMMARY | 2025-11-15 15:44 | XMS_ITS | Patient Health Record ---
Author Organization [facility] Address [address] [place] [id number] Care Team Providers Care Rotary Drill Operator Name Role Phone Jessica DICKINSON, Kiara Primary Care Provider U Harley Mustafa [phone] Allergies Allergen (clinical drug ingredient) Drug/Non Drug Allergy documented on EMR Reaction Allergy Type Onset Date Status naproxen Naproxen hives Drug Allergy Active Penicillin GI upset Drug Allergy Active Reason For Referral No Information Medications Medication SIG (Take, Route, Frequency, Duration) Notes Start Date End Date Status Vitamin D 1000units Active Calcium 1200mg Activ e Vitamin B12 1000mcg Active oxyBUTYnin Chloride ER 10 MG Tablet Extended Release 24 Hour take 1 capsule by mouth once daily Oral; Duration: 30 Active Omeprazole 20 MG Capsule Delayed Release take 1 capsule by mouth once daily Oral; Duration: 30 Active Effexor XR 37.5mg Ac tive Venlafaxine HCl ER 37.5 MG Capsule Extended Release 24 Hour TAKE ONE CAPSULE BY MOUTH WEEKLY Oral; Duration: 30 Active Nasonex 50mcg Active Acetaminophen-Codeine #3 300-30 MG Tablet take 1 tablet by mouth once daily if needed for 30 DAYS Oral; Duration: 30 Active Lisinopril 10mg Acti ve Zofran ODT 4 MG Tablet Dispersible as directed Orally 1 SL/PO Q 4-6 hours prn nausea; Duration: 30 days 04/18/2014 Active Estring 2mg Active Pataday 0.2 % Solution 1 drop into affec baldo eye Ophthalmic Once a day Active Aspir-81 81mg Active Levothyroxine Sodium 100mcg Active Social History Social History Additional Details Category Social Info Options Details Miscellaneous: Marital status: Occupation: disabled Section Notes: Nonsmoker; no alcohol Nonsmoker; no alcohol Problems Problem Type SNOMED Code ICD Code Onset Dates Problem Status W/U Status Risk Notes Problem Esophageal reflux (776635702) Esophageal reflux (530.81) Active confirmed Problem Nausea (249119253) Nausea alone (787.02) Active confirmed Problem Vomiting (243773272) Vomiting alone (787.03) Active confirmed Problem Colon cancer screening (411273740) Colon cancer screening (V76.51) Active confirmed Problem History of adenomatous polyp of colon (960910992) History of adenomatous polyp of colon (V12.72) Active confirmed Problem Nausea (419243447) Nausea (787.02) Active confirmed Plan Of Treatment Future Test Test Name Order Date COLONOSCOPY 04/18/2014 Insurance Providers Payer Name Payer Address Payer Phone Subscriber Number Group Number Insured Name Patient Relationship to Insured Coverage Start Date Coverage End Date MEDICARE OF [place] [address] [place] [address] [id number] LARRY FOURNIER Self - patient is the insured MEDICAID OF [facility] [address] [place] [id number] [phone] [id number] LARRY FOURNIER Self - patient is the insured Medical (General) History Medical History History ICD Code Colon polyps-colonoscopy in 02/05--1 tubu lar adenoma removed HTN Hypothyroid Depression Denies AK,DM,CVA,Lung disease,renal dise ase C-spine bulging discs diverticulosis [...]
== END 2025-11-15 12:13 | disposition home or self-care (01) ==
LOC: HO.HMCC 11:50
PROVIDERS: PCP Internal Medicine; Visit Provider Internal Medicine
DX: S09.90XS Unspecified injury of head, sequela (principal); M47.812 Spondylosis without myelopathy or radiculopathy, cervical region; M15.9 Polyosteoarthritis, unspecified; N39.3 Stress incontinence (female) (male); K58.2 Mixed irritable bowel syndrome; M85.88 Other specified disorders of bone density and structure, other site; Z98.84 Bariatric surgery status; E03.8 Other specified hypothyroidism; R73.01 Impaired fasting glucose

== ENCOUNTER 2025-11-15 11:50 | Outpatient (REF) | payer MEDICARE, SELFPAY ==
[2025-11-15 16:20] LABS: MANUAL DIFF FLAG NO
[2025-11-15 16:26] LABS: Hematocrit 42.3 % (37.0-47.0); Hemoglobin 13.3 g/dl (12.0-16.0); Imm Gran Abs Auto 0.02 X10*3/uL (0.00-0.03); Imm Gran Pct Auto 0.3 % (0.0-0.4); Lymphocytes Absolute Auto 1.6 X10*3/uL (1.2-4.9); Mean Corpuscular HGB Conc 31.4 g/dl (31.0-35.0); Mean Corpuscular Hemoglobin 31.1 pg (27.0-33.0); Mean Corpuscular Volume 99.1 fL (80.0-98.0); NRBC Abs Auto 0.000 X10*3/uL (0.0-0.012); NRBC Pct Auto 0.0 /100WBC (0.0-0.2); Platelet Count 255 X10*3/uL (160-400); Red Blood Count 4.27 X10*6/uL (4.20-5.50); White Blood Count 5.9 X10*3/uL (4.8-10.8)
[2025-11-15 17:01] LABS: Alanine Aminotransferase 22 U/L (0-31); Albumin Level 4.3 g/dL (3.5-5.0); Alkaline Phosphatase 74 U/L (39-117); Anion Gap 11 (12-20); Aspartate Amino Transferase 27 U/L (5-31); Blood Urea Nitrogen 12 mg/dL (9-16); Calcium 8.9 mg/dL (8.4-10.2); Carbon Dioxide 28 mmol/L (22-29); Chloride 106 mmol/L (96-108); Estimated Glomerular Filt Rate > 60; Potassium 4.0 mmol/L (3.3-5.1); Sodium 141 mmol/L (135-145); Total Protein 6.6 g/dL (6.5-8.0)
== END 2025-11-15 11:51 | disposition home or self-care (01) ==
LOC: HO.HMGCLDS 11:50
PROVIDERS: PCP Internal Medicine; Visit Provider Internal Medicine
DX: M47.812 Spondylosis without myelopathy or radiculopathy, cervical region (principal); F32.0 Major depressive disorder, single episode, mild; M15.9 Polyosteoarthritis, unspecified; N39.3 Stress incontinence (female) (male); K58.2 Mixed irritable bowel syndrome; M85.88 Other specified disorders of bone density and structure, other site; S09.90XS Unspecified injury of head, sequela; E03.8 Other specified hypothyroidism; R73.01 Impaired fasting glucose; Z98.84 Bariatric surgery status
CPT/HCPCS: 36415; 80053; 83036; 84443; 85025; 99212